=== PATIENT | female | born 1955 | race Caucasian/White ===

== ENCOUNTER 2024-08-14 10:31 | Outpatient (CLI) | payer MEDICARE, MEDICAID, SELFPAY ==
--- NOTE | ~2024-08-14 | CT_ITS ---
EXAMINATION: CT lung screening DATE: 08/14/2024 10:57 INDICATION: HX OF NICOTINE DEPENDENCE TECHNIQUE: Computed tomography (CT) of the chest was performed without intravenous contrast. Addition al 3D reconstructions utilizing coronal maximum intensity projection (MIP) were performed. Automated exposure control and iterative reconstruction technique were employed. The dose-length product was 95 .23 mGy-cm. COMPARISON: None FINDINGS: Mild emphysema. There are <4 mm calcified and noncalcified pulmonary nodules, the former along with c alcified left hilar and mediastinal lymph nodes consistent with old granulomatous disease. There is m osaic attenuation in the lungs with regions of more lucent air trapping consistent with small airway disease. There are also scattered groundglass opacities in the basilar lower lobes, many with linear configuration on the sagittal images consistent with atelectasis. No pulmonary edema or pleural effus ion. Heart size normal. Small amount of atherosclerotic coronary artery calcific location. No pericar dial effusion. Thoracic aorta is normal in caliber. No pathologically enlarged thoracic lymphadenopat hy. Small sliding-type hiatal hernia. Mild thoracic spondylosis. Instrumented anterior spinal fusion at C6-C7. IMPRESSION: 1. . Lung-RADS category 2: Benign appearance or behavior. Continue annual screening with noncontrast low-dose chest CT in 12 months. Reviewed, dictated and finalized at location A. [employer] IMPRESSION: 1. . Lung-RADS category 2: Benign appearance or behavior. Continue annual scree vy with noncontrast low-dose chest CT in 12 months.
--- OUTSIDE RECORDS SUMMARY | 2024-08-14 10:50 | XMS_ITS | Referral Summary ---
Author Organization [facility] Address [address] [place] [address] Care Team Providers Care Steel Die Press Set Up Operator Name Role Phone Earl Mo MD Unavailable [phone] Source Comments [facility],non-owned Affiliates and Associated Physician Practices is amultiple site organization consisting of ambulatory clinics and hospital sitesin [place], [place], [place] and [place]. This disclosure is being madepursuant to the Care Everywhere program and may not contain all information available regarding this patient. Last updated 18.[facility] [employer] Allergies Active Allergy Reactions Criticality Noted Date Comments Cefaclor Other 11/29/2010 Redness and welts Penicillins Other 11/29/2010 Redness and welts Medications * Be aware that medications may not be up to date on this document. Alwaysverify current medications with the patient. Medication Sig Dispensed Refills Start Date End Date Status diclofenac sodium (VOLTAREN) 75 MG tablet Take 1 Tab by mouth 2 times daily. 60 Tab 4 11/29/2010 Active amLODIPine (NORVASC) 5 MG tablet daily. Active citalopram (CELEXA) 40 MG tablet daily. Active furosemide (LASIX) 40 MG tablet 2 times daily. Active tiZANidine (ZANAFLEX) 4 MG tablet 1 Tab every 6 hours. Active traZODone (DESYREL) 150 MG tablet at bedtime. Active simvastatin (ZOCOR) 20 MG tablet at bedtime. Active hydrocodone-acetaminoph en (NORCO) 10-325 MG tablet every 4 hours as needed. Active ALPRAZolam (XANAX) 1 MG tablet 1-3 Tabs daily. Active aspirin 81 MG tablet daily. Acti ve Cimetidine (ACID PROGRAM LEAD PO) daily. Active Active Problems Problem Noted Date Diagnosed Date Degeneration of lumbar or lumbosacral interverte bral disc 12/11/2010 Spinal stenosis, lumbar mario on, with neurogenic claudication 12/11/2010 Social History Tobacco Use Types Packs/Day Years Used Date Smoking Tobacco: Some Days Cigarettes Smokeless Tobacco: Never Alcohol Use Standard Drinks/Week Comments No 0 (1 standard drink = 0.6 oz pur e alcohol) Sex and Gender Information Value Date Recorded Sex Assigned at Not on file Gender Identity Not on file Sexual Orientation Not on file Last Filed Vital Signs Vital Sign Reading Time Taken Comments Blood Pressure - - Pulse - - Temperature - - Respiratory Rate - - Oxygen Saturation - - Inhaled Oxygen Concentration - - Weight 86.2 kg (190 lb) 11/29/2010 3:33 PM CDT Height 162.6 cm (5' 4 ) 11/29/2010 3:33 PM CDT Body Mass Index 32.61 11/29/2010 3:33 PM CDT Plan of Treatment Not on file Care Teams Steel Die Press Set Up Operator Relationship Specialty Start Date End Date Earl Mo MD Internal Medicine 11/29/10
--- OUTSIDE RECORDS SUMMARY | 2024-08-14 10:50 | XMS_ITS | Clinical Summary ---
Author Organization [facility] Address [address] [place] [address] Care Team Providers Care It Support Specialist Name Role Phone Earl Mo MD Unavailable [phone] Source Comments [facility],non-owned Affiliates and Associated Physician Practices is amultiple site organization consisting of ambulatory clinics and hospital sitesin [place], [place]. This disclosure is being madepursuant to the Care Everywhere program and may not contain all information available regarding this patient. Last updated 18.[facility] [employer] Allergies Active Allergy Reactions Criticality Noted Date [...] MG tablet daily. Acti ve Cimetidine (ACID CLOTH LAYER PO) daily. Active Active Problems Problem Noted [...] 11/29/2010 3:33 PM CDT Plan of Treatment Health Maintenance Due Date Last Done Comments BONE DENSITY TESTING 1957 COLOGUARD (AGES 45-75) - COL ON CA SCREENING 1957 COLON MONITORING 1957 COLONOSCOPY - COLON CA SCREENING 1957 CT COLONOGRAPHY - COLON CA SCREENING 1957 Colorectal Cancer Screening 1957 FIT - COLON CA SCREENING 1957 FLEX SIG - COLON CA SCREENING 1957 MAMMOGRAM 1957 HEPATITIS C SCREENING 07/25/1975 DTAP/TDAP/TD VACCINES (1 - Tdap) 1976 PNEUMOCOCCAL VACCINE 50+ (1 of 2 - PCV) 1976 ZOSTER VACCINE (1 of 2) 2007 COVID-19 VACCINE ( - 2023-2 5 season) 2024 INFLUENZA VACCINE (#1) 2024 DEPRESSION SCREENING 07/01/2024 Respiratory Syncytial Virus (RSV) Vaccine Pt: or over 60 yrs (1 - 1-dose 75+ series) 2032 HEPATITIS B VACCINE Aged Out No longe r eligible based on patient's age to complete this topic HIB VACCINE Aged Out No longer eligi ble based on patient's age to complete this topic HPV VACCINE Aged Out No longer eligi ble based on patient's age to complete this topic MENINGOCOCCAL (Group B) VACCINE Aged Out No longer eligible based on patient's age to complete this topic MENINGOCOCCAL VACCINE Aged Out No susana vale eligible based on patient's age to complete this topic Care Teams It Support Specialist Relationship Specialty Start Date End Date Earl Mo MD Internal Medicine 11/29/10
--- OUTSIDE RECORDS SUMMARY | 2024-08-14 10:50 | XMS_ITS | Patient Health Summary ---
Author Organization [facility] Address [address] [place] [address] Care Team Providers Care Tag Maker Name Role Phone Earl Mo MD Unavailable [phone] Note from [facility],non-owned Affiliates and Associated Physician Practices is amultiple site organization consisting of ambulatory clinics and hospital sitesin [place], [place], [place] and [place]. This disclosure is being madepursuant to the Care Everywhere program and may not contain all information available regarding this patient. Last updated 18.[facility] Allergies * Cefaclor(Other) * Penicillins(Other) Medications * Be aware that medications may not be up to date on this document. Alwaysverify current medications with the patient. * diclofenac sodium (VOLTAREN) 75 MG tablet(Started 11/29/2010) Take 1 Tab by mouth 2 times daily. 4 refills left * amLODIPine (NORVASC) 5 MG tablet daily. * citalopram (CELEXA) 40 MG tablet daily. * furosemide (LASIX) 40 MG tablet 2 times daily. * tiZANidine (ZANAFLEX) 4 MG tablet 1 Tab every 6 hours. * traZODone (DESYREL) 150 MG tablet at bedtime. * simvastatin (ZOCOR) 20 MG tablet at bedtime. * hydrocodone-acetaminophen (NORCO) 10-325 MG tablet every 4 hours as needed. * ALPRAZolam (XANAX) 1 MG tablet 1-3 Tabs daily. * aspirin 81 MG tablet daily. * Cimetidine (ACID RAVELER PO) daily. Active Problems Problem Noted Date Diagnosed Date [...] Mass Index 32.61 11/29/2010 3:33 PM CDT Care Teams Tag Maker Relationship Specialty Start Date End Date Earl Mo MD Internal Medicine 11/29/10
--- OUTSIDE RECORDS SUMMARY | 2024-08-14 10:50 | XMS_ITS | Continuity of Care Document ---
Author Organization [facility] Address [address] [place] [address] Phone Care Team Providers Care Boarder Steam Name Role Phone [facility] Unavailable Unavail able Magdy Mott Unavailable Unavailable Procedures Procedure Date Progressive Lens, Polycarb Tint Plastic, Non-[place] Tax - [facility] Frames Purchases Progressive Lens, Polycarb Balance Lens Anti-reflective Coating Eye Exam, New Patient Refraction Advance Directives Directive Yes / No Effective Date File Name No Information Encounters Encounter Description Practice Location Reason(s) For Visit Diagnoses Date Provider Providers Copied on Encounter [facility], [address] [place] [address] [address], [place], [place], [id number], [place] tel:[phone] [facility] No Information [address] [facility]. [address], [address], [place], [place], [id number], [place]. tel:[phone] Referring Provider: José Miguel joseph, [address] [place] [address] [address], [place], [address]. tel:[phone] sulting Provider: Magdy Mott, [address] [place] [address], [place], [address]. tel:[phone] [facility], [address] [place] [address] [address], [place], [place], [id number], [place] tel:[phone] [facility] No Information 9 [facility]. [address], [address], [place], [place], [id number], [place]. tel:[phone] Referring Provider: José Miguel joseph, [address], [place], [address]. tel:[phone] [facility], [address], [place], [place], [id number], [place] tel:[phone] [facility] No Information [address] Carol Valdez. [address], [place], [address], [place]. tel:[phone] Family History Family Member Type Diagnosis Age At Onset No Information Payers Payer name Insurance type Covered alliance party ID Authoriza tion(s) No Information Social History Type Description Quantity Date Captured Comments Sex Female Smoking Status No Information Chief Complaint And Reason For Visit No Information Reason For Referral Reason For Referral No Information History Of Present Illness Encounter Date Complaint History Of Prese nt Illness No Information Functional Status Date Functional Assessmen t No Information Instructions Date Instruction Additional Infor mation No Information Assessments Type Assessment Date No Information Patient Care Teams Name Effective Dates (start - stop) Status Members No Information
--- OUTSIDE RECORDS SUMMARY | 2024-08-14 10:50 | XMS_ITS | Data Portability ---
Author Organization [place] - [facility] imedo, Main Office Address [address] [place] [address] Care Team Providers Care Benefits Director Name Role Phone ADELSO MO Primary Care Provider ADELSO MO Referring Provider Assessment Encounter Date Assessment Date Assessment LastModified by Organization Details LastModified Time 11/08/2023 11/08/2023 The patient has moderately severe primary osteoarthritis both knees right worse than left. The left knee feels good after Synvisc-One injections 2 months ago the right knee continues to bother her. She thinks cortisone works better in this knee she would like to repeat that today therefore under sterile conditions I injected the patient's right knee joint in the office with 4 cc 0.5% bupivacaine and 20 mg of Kenalog. Patient tolerated the procedure well. I will see her back as needed we can do this again in 3 months if necessary she voiced understanding agrees above plan she will call for any further problems difficulties or questions. [email or web address] Not available 11/08/2023 14:07:35 Plan of Treatment Reminders Order Date Submit Date Provider Last Modified By Organization Details Last Modified Time Details Appointments None recorded. Lab lipid panel, serum 2024 025 [facility] Outpatient Lab, [address] [place], [address], 17:32:27 CMP, serum or plasma 2024 025 [email or web address] [facility] Outpatient Lab, [address] [place], [address], 17:32:27 CBC w/ auto diff 2024 025 [facility] Lab, [address] [place], [address], 5 10:47:21 HbA1c (hemoglobin A1c), blood [id number] Outpatient Lab, [address] [place], [address], 5 17:32:27 lipid panel, serum 2023 024 [facility] Out[facility] Lab, [address] [place], [address], 4 14:51:15 CMP, serum or plasma 2023 024 [facility] Out[facility] Lab, [address] [place], [address], 4 14:51:19 TSH, serum or plasma 2023 024 [facility] Out[facility] Lab, [address] [place], [address], 4 15:23:57 T4, free, serum 2023 024 [facility] Out[facility] Lab, [address] [place], [address], 4 15:23:26 magnesium, serum or plasma 2023 024 [facility] Out[facility] Lab, [address] [place], [address], 4 14:51:22 vitamin B12, serum 2023 024 [facility] Out[facility] Lab, [address] [place], [address], 4 15:39:00 HbA1c (hemoglobin A1c), blood [email or web address] [place] [address] Outpatient Lab, [address] [place], [address], 4 15:19:00 microalbumi n, urine 2023 024 [facility] Out[facility] Lab, [address] [place], [address], 4 15:38:45 CBC w/ auto diff 2023 024 [facility] Out[facility] Lab, [address] [place], [address], 4 14:15:57 Referral None recorded. Procedures injection/a spiration joint/bursa (PROC) 2023 024 [email or web address] In-Office Order, Internal Use Only DO Not Attach Compendium DO Not Attach Compendium, Do Not Delete/merge, [id number] 4 11:05:24 Surgeries None recorded. Imaging None recorded. Medication Orders bupivacaine HCl 0.5 % (5 mg/mL) injection solution 2023 024 [email or web address] [facility] #[id number], [address] , [place], [place], [id number], 5 14:39:57 Kenalog 10 mg/mL suspension for injection 2023 024 [id number], [address] , [place], [place], [id number], 5 14:40:14 Patient TargetsNo targets recorded. Patient Instructions Encounter Date Encounter Id Patient Instructions Last Modified By Organization Details Last Modified Time 11/04/2023 [id number] Follow-up hypertension, hyperlipidemia, asthma and chronic pain syndrome. Instructed get back on her Dulera two puffs twice daily because the increase in wheezing and cough. Get a chest x-ray. Plan is reduce the hydrocodone to 3 times a day for a week then twice daily for week and then once daily for week and then discontinue. Will continue on current Rx otherwise. No need for any additional blood work will start on some anti-inflammatory agents when she gets down to one pill per day. Will continue on current or Rx otherwise and follow-up in four months Chest x-ray for persistent cough and wheezing Next Appointment: 4 Months Approximate Date: 03/03/2024 Portions of the record may have been created with voice recognition software. Occasional wrong-word or s ound-a-like substitutions may have occurred due to the inherent limitations of voice recognition software. Read the chart carefully and recognize, using context, where substitutions have occurred. [email or web address] Not available 11/04/2023 11:38:25 03/16/2024 [id number] dementia rating scale-2* [email or web address] Not available 03/16/2024 15:25:56 alcohol misuse* Not available 03/16/2024 15:25:55 depression screening* [email or web address] Not available 03/16/2024 15:25:55 Timed Up and Go test (TUG)* [email or web address] Not available 03/16/2024 15:25:56 multi-dimensiona health assessment questionnaire* [email or web address] Not available 03/16/2024 15:25:56 Personalized Hea lt Plan and Screening Recommendations Advance Directives - Do you have one? No Advance Directives - Do we have your advance directive on file in your health record? Primary Prevention/Interven tion (prevents or decreases the chance of common diseases from occurring) Smoking Risk: Smoker Alcohol Misuse Screening: Negative Weight: Appropriate Overwei ght continue your current weight loss efforts try to lose 5% of your body weight try to lose 10% of your body weight Physical activity: Need more exercise/physical activity Nutrition: Good Average Fall Risk (screened today): Low Intermediate Refer to attached handout Preventing Falls: After your Visit Recommend regular use of cane or walker Vaccines Pneumococcal: Ordered Recommended today Recommended today, but you have declined No further needed Influenza: Your next one in the fall of this year Chronic Disease Risks Stroke: Low Risk Intermediate Risk I have no recommendations Act radha diagnosis, Continue current treatment plan Heart Attack: Low risk Intermediate Risk I have no recommendations Act radha diagnosis, Continue current treatment plan Clogging of the Arteries: Low risk Intermediate Risk I have no recommendations Act radha diagnosis, Continue current treatment plan Diabetes: Low Risk Intermediate Risk Active diagnosis, Continue current treatment plan Secondary Prevention/Interven tion (detects treatable diseases before they may cause symptoms, disability, or ) Breast Cancer Screening with mammogram: Your next mammogram: Ordered Recommended today Cervical/Uterine/Ov schuyler Cancer Screening: No screening necessary Osteoporosis Screening: Your next DEXA in: Ordered Recomme nded today Date Screening Last Performed: Colon Cancer Screening: Colonoscopy In: Ordered Recomme nded Date Screening Last Performed: Eye Disease Screening: Dementia Risk: Low I have no recommendations Depression Screening: Negative [email or web address] Not available 03/16/2024 15:19:15 Medicare wellnes s evaluation risk assessment stable. Follow-up hypertension, hyperlipidemia, type 2 diabetes, GERD and asthma. Clinically stable will check blood work consisting of CBC, CMP, lipid, thyroid, hemoglobin A1c, microalbumin, B12, magnesium level and will need further evaluation with bone density scan colonoscopy. Will continue on current Rx follow-up in fou months. Additional Orders - Directives - Recommendations 1. DEXA Scan 2. Colonoscopy Next Appointment: 4 Months Approximate Date: 07/14/2024 Portions of the record may have been created with voice recognition software. Occasional wrong-word or s ound-a-like substitutions may have occurred due to the inherent limitations of voice recognition software. Read the chart carefully and recognize, using context, where substitutions have occurred. Not available 03/16/2024 15:25:36 05/14/2024 [id number] Laceration of ri ght ear clinically stable. Instructed patient to come back on Saturday05/18/2024 the has sutures removed. Instructed to stay on the clindamycin during that interval time. And let us know if there is any additional bleeding or drainage noted. Keep Appointment: Sat 01:40 PM [place] [email or web address] Not available 05/14/2024 10:35:29 07/20/2024 [id number] Follow-up essent ial hypertension, hyperlipidemia, type 2 diabetes and chronic pain syndrome. Plan to check blood work consisting of CBC, CMP, lipid and hemoglobin A1c level. Continue on current Rx. Does need a low-dose CT scan of the chest for follow-up for chronic smoking. Continue on current medications and follow-up in four months Additional Orders - Directives - Recommendations 1. Low-dose CT scan of the chest one year follow-up Follow Up: 4 Months Approximate Date: 11/17/2024 Portions of the record may have been created with voice recognition software. Occasional wrong-word or s ound-a-like substitutions may have occurred due to the inherent limitations of voice recognition software. Read the chart carefully and recognize, using context, where substitutions have occurred. Created: Adelso Mo M.D. 07.20.2024 01:48 PM [email or web address] Not available 07/20/2024 14:48:55 Reason for Referral None Reported. Results Created Date Observation Date Name Description Value Unit Range Abnormal Flag Note LastModifiedBy Organization Detail LastModifiedTime 02/13/2002/13/2024 COVID -19, INFLU ALEXIS A+B, PCR sars-cov-2 RNA(covid19) ,RT-PCR POSITI VE abnormal This test has been autho rized by the FDA under an Emerg ency Use Autho rizat ion (EUA) for use by autho rized labor atori es. Negat radha resul ts do not precl ude SARS- CoV-2 and shoul d not be used as the sole basis for treat ment or other patie nt manag ement decis ions. Test resul ts shoul d be corre lated with the clini marcus histo ry, epide miolo gical data, and other data avail able to the clini krystal evalu ating the patie nt. Byron allen w the Fact Sheet s for healt h care provi ders and patie nts at the [facility] toña: https ://ww w.fda .gov/ media /1363 12/do wnloa d https ://ww w.fda .gov/ media /1363 13/do wnloa d Metho dolog y: Real- Time RT-PC R Not Available [facility] (Lab) [address] [place], [address], 02/13/2024 12:57:06 02/13/20 24 02/13/2024 COVID -19, INFLU ALEXIS A+B, PCR influenza A RNA, RT-PCR NEGATI VE Not Available [facility] (Lab) [address] [place], [address], 02/13/2024 12:57:06 02/13/20 24 02/13/2024 COVID -19, INFLU ALEXIS A+B, PCR influenza B RNA, RT-PCR NEGATI VE abnormal Not Available [facility] (Lab[facility] [address] [facility] [place], [address], 02/13/2024 12:57:06 03/18/20 24 03/18/2024 CBC/C OMPLE TE BLD COUNT W/DIF F white blood cells 6.8 x10'3 /uL 4.2-[address] [facility] (Lab) [address] [place], [address], 03/18/2024 14:15:57 03/18/20 24 03/18/2024 CBC/C OMPLE TE BLD COUNT W/DIF F red blood cells 4.18 x10'6 /uL 3.80-[address] [facility] (Lab) [address] [place], [address], 03/18/2024 14:15:57 03/18/20 24 03/18/2024 CBC/C OMPLE TE BLD COUNT W/DIF F hemoglobin 13.2 g/dL 12.0-[address] [facility] (Lab) [address] [place], [address], 03/18/2024 14:15:57 03/18/20 24 03/18/2024 CBC/C OMPLE TE BLD COUNT W/DIF F hematocrit 40.3 % 35.7-[address] [facility] (Lab) [address] [place], [address], 03/18/2024 14:15:57 03/18/20 24 03/18/2024 CBC/C OMPLE TE BLD COUNT W/DIF F mean red cell volume 96.4 fL 82.0-[address] [facility] (Lab) [address] [place], [address], 03/18/2024 14:15:57 03/18/20 24 03/18/2024 CBC/C OMPLE TE BLD COUNT W/DIF F mean red cell hemoglobin 31.6 pg 27.0-[address] [facility] (Lab) [address] [place], [address], 03/18/2024 14:15:57 03/18/20 24 03/18/2024 CBC/C OMPLE TE BLD COUNT W/DIF F mean RBC HGB concentratio n 32.8 g/dL 31.0-[address] [facility] (Lab) [address] [place], [address], 03/18/2024 14:15:57 03/18/20 24 03/18/2024 CBC/C OMPLE TE BLD COUNT W/DIF F red cell distribution width 13.5 % 11.8-[address] [facility] (Lab) [address] [place], [address], 03/18/2024 14:15:57 03/18/20 24 03/18/2024 CBC/C OMPLE TE BLD COUNT W/DIF F platelets 221 x10'3 /uL 150-[address] [facility] (Lab) [address] [place], [address], 03/18/2024 14:15:57 03/18/20 24 03/18/2024 CBC/C OMPLE TE BLD COUNT W/DIF F mean platelet volume 9.5 fL 9.0-[address] [facility] (Lab) [address] [place], [address], 03/18/2024 14:15:57 03/18/20 24 03/18/2024 CBC/C OMPLE TE BLD COUNT W/DIF F neutrophils 73.0 % 39.0-7 2.0 high Not Available [facility] (Lab) [address] [place], [address], 03/18/2024 14:15:57 03/18/20 24 03/18/2024 CBC/C OMPLE TE BLD COUNT W/DIF F lymphocytes 18.8 % 16.0-4 7.0 Not Available [facility] (Lab) [address] [place], [address], 03/18/2024 14:15:57 03/18/20 24 03/18/2024 CBC/C OMPLE TE BLD COUNT W/DIF F monocytes 6.9 % 5.0-[address] [facility] (Lab) [address] [place], [address], 03/18/2024 14:15:57 03/18/20 24 03/18/2024 CBC/C OMPLE TE BLD COUNT W/DIF F eosinophils 0.6 % 1.0-7. [address] [facility] (Lab) [address] [place], [address], 03/18/2024 14:15:57 03/18/20 24 03/18/2024 CBC/C OMPLE TE BLD COUNT W/DIF F basophils 0.4 % 0.0-2. [address] [facility] (Lab) [address] [place], [address], 03/18/2024 14:15:57 03/18/20 24 03/18/2024 CBC/C OMPLE TE BLD COUNT W/DIF F immature granulocytes 0.3 % 0.00-[address] [facility] (Lab) [address] [place], [address], 03/18/2024 14:15:57 03/18/20 24 03/18/2024 CBC/C OMPLE TE BLD COUNT W/DIF F neutrophils, absolute count 4.96 x10'3 /uL 1.5-8. [address] [facility] (Lab) [address] [place], [address], 03/18/2024 14:15:57 03/18/20 24 03/18/2024 CBC/C OMPLE TE BLD COUNT W/DIF F lymphocytes, absolute count 1.28 x10'3 /uL 1.07-[address] [facility] (Lab) [address] [place], [address], 03/18/2024 14:15:57 03/18/20 24 03/18/2024 CBC/C OMPLE TE BLD COUNT W/DIF F monocytes, absolute count 0.47 x10'3 /uL 0.29-[address] [facility] (Lab) [address] [place], [address], 03/18/2024 14:15:57 03/18/20 24 03/18/2024 CBC/C OMPLE TE BLD COUNT W/DIF F eosinophils, absolute count 0.04 x10'3 /uL 0.02-[address] [facility] (Lab) [address] [place], [address], 03/18/2024 14:15:57 03/18/20 24 03/18/2024 CBC/C OMPLE TE BLD COUNT W/DIF F basophils, absolute count 0.03 x10'3 /uL 0.01-[address] [facility] (Lab) [address] [place], [address], 03/18/2024 14:15:57 03/18/20 24 03/18/2024 CBC/C OMPLE TE BLD COUNT W/DIF F immature granulocytes ,absolute 0.02 x10'3 /uL 0.00-[address] [facility] (Lab) [address] [place], [address], 03/18/2024 14:15:57 03/18/20 24 03/18/2024 CBC/C OMPLE TE BLD COUNT W/DIF F nucleated red blood cells 0.0 % -0 Not Available [facility] (Lab) [address] [place], [address], 03/18/2024 14:15:57 03/18/20 24 03/18/2024 CBC/C OMPLE TE BLD COUNT W/DIF F NRBC# 0.00 x10'3 /uL Not Available [facility] (Lab) [address] [place], [address], 03/18/2024 14:15:57 03/18/20 24 03/18/2024 LIPID PANEL cholesterol 142 mg/dL 140-19 9 NIH CAITLYN NSUS RECOM MENDA TION FOR LAWRENCE STERO L: ADULT CHILD LOW RISK: <200 <170 BORDE RLINE : <200- 239 ----- HIGH RISK: >240 >[address] [facility] (Lab) [address] [place], [address], 03/18/2024 14:51:15 03/18/20 24 03/18/2024 LIPID PANEL triglyceride s 103 mg/dL 0-150 NIH CAITLYN NSUS REPOR T RECOM MENDA TION FOR TRIGL YCERI LONNIE: ADULT CHILD LOW RISK: <150 ----- BODER LINE: 150-1 99 ----- HIGH RISK: >200 ----- Not Available [facility] (Lab) [address] [place], [address], 03/18/2024 14:51:15 03/18/2003/18/2024 LIPID PANEL HDL cholesterol 77 mg/dL 40- Not Available [facility] (Lab) [address] [place], [address], 03/18/2024 14:51:15 03/18/20 24 03/18/2024 LIPID PANEL LDL cholesterol, calculated 44 mg/dL 0-130 NIH CAITLYN NSUS REPOR T RECOM MENDA TIONS FOR LDL: ADULT CHILD LOW RISK <130 <110 (OPTI MAL LDL) <100 ----- BORDE RLINE : 130-1 59 ----- HIGH RISK: >160 >130 A TRIGL YCERI DE RESUL T >400 INVAL IDATE S THE CALCU LATIO N FOR LDL FRACT IONAT ION - THE LDL RESUL T WILL NOT BE REPOR AMBER. Not Available [facility] (Lab) [address] [place], [address], 03/18/2024 14:51:15 03/18/20 24 03/18/2024 COMPR EHENS RADHA METAB OLIC PANEL sodium 133 mmol/ L 137-14 5 low Not Available [facility] (Lab) [address] [place], [address], 03/18/2024 14:51:19 03/18/20 24 03/18/2024 COMPR EHENS RADHA METAB OLIC PANEL potassium 4.0 mmol/ L 3.5-5. 1 Not Available [facility] (Lab) [address] [place], [address], 03/18/2024 14:51:19 03/18/20 24 03/18/2024 COMPR EHENS RADHA METAB OLIC PANEL chloride 100 mmol/ L 98-107 Not Available [facility] (Lab) [address] [place], [address], 03/18/2024 14:51:19 03/18/20 24 03/18/2024 COMPR EHENS RADHA METAB OLIC PANEL carbon dioxide 30 mmol/ L 22-30 Not Available [facility] (Lab) [address] [place], [address], 03/18/2024 14:51:19 03/18/20 24 03/18/2024 COMPR EHENS RADHA METAB OLIC PANEL anion gap 7.0 mmol/ L 14-22 low Not Available [facility] (Lab) [address] [place], [address], 03/18/2024 14:51:19 03/18/20 24 03/18/2024 COMPR EHENS RADHA METAB OLIC PANEL glucose 86 mg/dL 70-[address] [facility] (Lab) [address] [place], [address], 03/18/2024 14:51:19 03/18/20 24 03/18/2024 COMPR EHENS RADHA METAB OLIC PANEL BUN 11 mg/dL 8-[address] [facility] (Lab) [address] [place], [address], 03/18/2024 14:51:19 03/18/20 24 03/18/2024 COMPR EHENS RADHA METAB OLIC PANEL creatinine 0.66 mg/dL 0.66-[address] [facility] (Lab) [address] [place], [address], 03/18/2024 14:51:19 03/18/20 24 03/18/2024 COMPR EHENS RADHA METAB OLIC PANEL GFR >60 Refer ence Range : [place] ge GFR Healt hy Adult : >60 mL/mi n/1.7 3 m2 Chron ic Kidne y Disea se: 15-60 mL/mi n/1.7 3 m2 Kidne y Failu re: <15/m L/min /1.73 m2 www.n iddk. nih.g ov The MDRD study equat ion has not been valid ated in child ninfa <18 years of age; pregn ant women ; the elder ly >85 years of age; or in some racia l or ethni c subgr oups, such as Hispa nics. Outsi de the valid ated larry eters , estim ated GFR is less accur ate, requi ring clini marcus judgm ent on a case- by-ca se basis . Clini marcus inter preta tion for other races and ages must be made by the clini krystal. The MDRD study equat ion has not been valid ated for the evalu ation of serum creat inine relat ed to nutri caterina l statu s or medic ation usage . For perso ns <18 years of age, a pedia tric GFR calcu lator is avail able on the [facility] websi te: https ://mustapha magana.o daniel/pr ofess ional s/kdo qi/gf r_cal culat or Not Available [facility] (Lab) [address] [place], [address], 03/18/2024 14:51:19 03/18/20 24 03/18/2024 COMPR EHENS RADHA METAB OLIC PANEL alkaline phosphatase 129 U/L 38-126 high Not Available [facility] (Lab) [address] [place], [address], 03/18/2024 14:51:19 03/18/20 24 03/18/2024 COMPR EHENS RADHA METAB OLIC PANEL alanine aminotransfe rase 22 U/L 0-35 Not Available [facility] (Lab) [address] [place], [address], 03/18/2024 14:51:19 03/18/20 24 03/18/2024 COMPR EHENS RADHA METAB OLIC PANEL aspartate aminotransfe rase 26 U/L 15-37 Not Available [facility] (Lab) [address] [place], [address], 03/18/2024 14:51:19 03/18/20 24 03/18/2024 COMPR EHENS RADHA METAB OLIC PANEL bilirubin, total 0.40 mg/dL 0.20-[address] [facility] (Lab) [address] [place], [address], 03/18/2024 14:51:19 03/18/20 24 03/18/2024 COMPR EHENS RADHA METAB OLIC PANEL calcium 9.2 mg/dL 8.4-[address] [facility] (Lab) [address] [place], [address], 03/18/2024 14:51:19 03/18/20 24 03/18/2024 COMPR EHENS RADHA METAB OLIC PANEL total protein 6.4 g/dL 6.3-8. [address] [facility] (Lab) [address] [place], [address], 03/18/2024 14:51:19 03/18/20 24 03/18/2024 COMPR EHENS RADHA METAB OLIC PANEL albumin 4.0 g/dL 3.0-4. [address] [facility] (Lab) [address] [place], [address], 03/18/2024 14:51:19 03/18/20 24 03/18/2024 COMPR EHENS RADHA METAB OLIC PANEL globulin 2.4 g/dL 2.6-4. [address] [facility] (Lab) [address] [place], [address], 03/18/2024 14:51:19 03/18/20 24 03/18/2024 COMPR EHENS RADHA METAB OLIC PANEL A/G ratio 1.7 ratio 1.0-2. [address] [facility] (Lab) [address] [place], [address], 03/18/2024 14:51:19 03/18/20 24 03/18/2024 MAGNE SIUM magnesium 2.0 mg/dL 1.6-2. [address] [facility] (Lab) [address] [place], [address], 03/18/2024 14:51:22 03/18/20 24 03/18/2024 T4 FREE free T4 1.02 NG/dL 0.78-[address] [facility] (Lab) [address] [place], [address], 03/18/2024 15:23:26 03/18/20 24 03/18/2024 TSH thyroid-stim ulating hormone 0.618 uIU/m L 0.465- 4.[address] [facility] (Lab) [address] [place], [address], 03/18/2024 15:23:57 03/18/20 24 03/18/2024 MICRO ALBUM IN RANDO M URINE microalbumin , urine <6.0 mg/L 0.0-[address] [facility] (Lab) [address] [place], [address], 03/18/2024 15:38:45 03/18/20 24 03/18/2024 VITAM IN B12 (SHAWN FRANKY ) vb12 537 pg/mL 239-[address] [facility] (Lab) [address] [place], [address], 03/18/2024 15:39:00 03/18/20 24 03/20/2024 HA1C, SEND- OUT TO [facility] RP hemoglobin A1C 5.3 % 4.8-5. 6 . . Predi abete s: 5.7 - 6.4 Diabe toña: >6.4 Glyce hilary contr ol for adult s with diabe toña: <7.0 Perfo rmed at: - [facility], [place] [address] [facility], [place] [id number] Lab Direc tor: Roddy rosenbaum PhD, Phone : [phone] [facility] (Lab) [address] [place], [address], 03/20/2024 08:22:31 03/27/20 24 03/27/2024 COLOG UARD cologuard result reportable NEGATI VE negati ve normal NEGAT RADHA TEST RESUL T. A negat radha Colog uard resul t indic ates a low likel ihood that a color ectal cance r (CRC) or advan erick adeno ma (ana omato us polyp s with more advan erick pre-m align ant featu res) is prese nt. The chanc e that a perso n with a negat radha Colog uard test has a color ectal cance r is less than 1 in 1500 (nega tive predi ctive value >99.9 %) or has an advan erick adeno ma is less than 5.3% (nega tive predi ctive value 94.7% ). These data are based on a prosp ectiv e cross -sect ional study of 10,00 0 indiv idual s at [place] risk for color ectal cance r who were scree nawaf with both Colog uard and colon oscop y. (Finne matteo T. et al, N Engl J Med 2014; 370(1 4):12 86-12 97) The isai l value (refe rence range ) for this assay is negat radha. COLOG UARD RE-SC REENI NG RECOM MENDA TION: Perio dic color ectal cance r scree vy is an impor tant part of preve ntive healt hcare for asymp tomat ic indiv idual s at [place] risk for color ectal cance r. Follo wing a negat radha Colog uard resul t, the Ameri can Cance r Socie ty and U.S. Multi -Soci ety Task Force scree vy guide lines recom mend a Colog uard re-sc reeni ng inter elaine of 3 years . Refer ences : Ameri can Cance r Socie ty Guide line for Color ectal Cance r Scree vy: https ://mustapha w.can cer.o rg/ca ncer/ colon -rect al-ca ncer/ detec tion- diagn osis- stagi ng/ac s-rec ommen datio ns.ht ml.; Mane HAIRSTON, Silvia BURR, Caroline GARCIA, Color ectal Cance r Scree vy: Recom menda tions for Physi cians and Patie nts from the U.S. Multi -Soci ety Task Force on Color ectal Cance r Scree vy , Linda Moore Gastr tamminte rolog y 2017; 112:1 016-1 030. TEST DESCR IPTIO N: [place] site algor ithmi c tara sis of stool DNA-b iogumaro kers with hemog lobin immun oassa y. Quant itati ve value s of indiv idual bioma rkers are not repor table and are not assoc iated with indiv idual bioma rker resul t refer ence range s. Colog uard is inten ded for color ectal cance r scree vy of adult s of eithe r sex, 45 years or older , who are at [facility] for color ectal cance r (CRC) . Colog uard has been appro tyree for use by the [place] FDA. The perfo rmanc e of Colog uard was estab lishe d in a cross secti onal study of [facility] adult s aged 50-84 . Colog uard perfo rmanc e in patie nts ages 45 to 49 years was estim ated by sub-g roup tara sis of near- age group s. Colon oscop ies perfo rmed for a posit radha resul t may find as the most clini kalin signi fican t lesio n: color ectal cance r [4.0% ], advan erick adeno ma (incl uding sessi le long amber polyp s great er than or equal to 1cm diame ter) [20%] or non- advan erick adeno ma [31%] ; or no color ectal neopl anh [45%] . These estim ates are deriv ed from a prosp ectiv e cross -sect ional scree vy study of 10,00 0 indiv idual s at [facility] risk for color ectal cance r who were scree nawaf with both Colog uard and colon oscop y. (Og Chavira et al, N Engl J Med 2014; 370(1 4):12 86-12 97.) Colog uard may produ ce a false negat radha or false posit radha resul t (no color ectal cance r or preca ncero us polyp prese nt at colon oscop y follo w up). A negat radha Colog uard test resul t does not guara ntee the absen ce of CRC or advan erick adeno ma (pre- cance r). The curre nt Colog uard scree vy inter elaine is every 3 years . (Amer ican Cance r Socie ty and U.S. Multi -Soci ety Task Force ). Colog uard perfo rmanc e data in a 10,00 0 patie nt pivot al study using colon oscop y as the refer ence metho d can be acces sed at the follo wing locat ion: www.e xactl abs.c om/re sults . Addit ional descr iptio n of the Colog uard test proce ss, warni ngs and preca ution s can be found at www.c ologu angela.c om. Not Available [employer] (Cologuard Orders Only) [address], [place], [address], 04/01/2024 01:50:59 11/04/19 24 11/04/2023 XR, chest , 2 view [facility] [address] [place] [address] Patien t Name: MARCIE BARRY Access ion #: [id number] Sex: F : 1955 6 Dictat ed By: Jamie Camacho Attend ing Physic mynor: NEHA MO CE Orderi Physic mynor: NEHA MO CE Exam Date: 2023 11:33 AM Exam Name: XR CHEST 2V Admitt ing Diagno sis(es ): XR CHEST 2V CLINIC AL HISTOR Y: cough COMPAR LAKSHMI: None TECHNI QUE: Fronta l and latera l view of the chest was obtain ed FINDIN GS: Lines and Tubes: None Lungs: No focal consol idatio n. Pleura : No effusi on. No pneumo thorax . Cardio medias tinal contou rs: Unrema rkable Bones: No acute osseou s abnorm ality. IMPRES PHILLIP: No acute cardio pulmon carter diseas e. Electr onical ly Signed by: Jamie Camacho at 2023 12:43: 33 PM Page [address] (Imaging) [address] [place], [address], 11/04/2023 13:57:48 11/19/19 24 11/19/2023 US, carot id arter y No observ ation record ed. [address] [facility] [address], [place], [address], 11/19/2023 15:33:57 02/27/20 24 02/27/2024 XR, chest , 2 view [facility] [address] [place] [address] Patien t Name: MARCIE BARRY Access ion #: [id number] Sex: F : 1955 7 Dictat ed By: Jamie Camacho Attend ing Physic mynor: NEHA MO CE Orderi ng Physic mynor: NEHA MO CE Exam Date: 2023 11:04 AM Exam Name: XR CHEST 2V Admitt ing Diagno sis(es ): XR CHEST 2V CLINIC AL HISTOR Y: cough COMPAR LAKSHMI: XR CHEST 2V on DOS: 11/04/23 TECHNI QUE: Fronta l and latera l view of the chest was obtain ed FINDIN GS: Lines and Tubes: None Lungs: No focal consol idatio n. Pleura : No effusi on. No pneumo thorax . Cardio medias tinal contou rs: Unrema rkable Bones: No acute osseou s abnorm ality. IMPRES PHILLIP: No acute cardio pulmon carter diseas e. Electr onical ly Signed by: Jamie Camacho at 2023 11:39: 36 AM Page [address] (Imaging) [address] [place], [address], 02/27/2024 12:44:00 04/27/20 24 04/27/2024 DEXA, axial skele ton [facility] [address] [place] [address] Patien t Name: MARCIE BARRY Access ion #: [id number] Sex: F : 1955 7 Dictat ed By: Monica Doran Attend ing Physic mynor: NEHA MO Orderi Physic mynor: NEHA MO Exam Date: 2023 11:26 AM Exam Name: XR DEXA-H IPS PELVIS SPINE Admitt ing Diagno sis(es ): INDICA TION: 68 years old, Female ; osteop orosis . Postme nopaus al DEXA SCAN: BONE DENSIT Y REPORT : AP SPINE (L1-L4 ) : T Score: Normal LEFT HIP TOTAL : T Score: Normal RT HIP TOTAL : T Score: Normal TOTAL BILAT HIP AVG: T Score: Normal 10 YEAR FRACTU RE RISK* Not provid ed. IMPRES PHILLIP: 1. Normal bone minera l densit y of lumbar spine. 2. Normal bone minera l densit y of bilate ral hips. ------ ------ ------ ------ ------ ------ ------ ------ ----- *FRAX versio n 3.08. Fractu re probab ility calcul ated for an untrea amber patien t. Fractu re probab ility may be lower if the patien t has receiv ed treatm ent. T-scor e: compar lakshmi by columba peterson ion (MANSOOR) to a young adult popula bruno leon d for sex and ethnic ity (used for postme nopaus al women and men >50 years) and classi fied by WHO criter ia. Page 1 [facility] [address] [place] [address] Patien t Name: MARCIE BARRY Access ion #: [id number] Sex: F : 1955 7 Dictat ed By: Monica Doran Attend ing Physic mynor: PAN MANUEL ng Physic mynor: NEHA MO Exam Date: 2023 11:26 AM Exam Name: XR DEXA-H IPS PELVIS SPINE Admitt ing Diagno sis(es ): -1.0: normal <-1.0 to >-2.5: osteop enia -2.5: osteop orosis -2.5 plus fragil ity fractu re: severe osteop orosis Z-scor e: compar ed by SD to an age, sex, and ethnic ity popula tion (used for premen opausa l women, men <50 years, and childr en instea d of T-scor e WHO criter ia 4) <-2.0: below expect ed range/ low bone densit y for age, and a cause should be sought Electr onical ly Signed by: Monica Doran at 2023 12:08: 52 PM Page [address] (Imaging) [address] [place], [address], 04/27/2024 13:31:25 Result Notes None recorded. Problems Name Problem SNOMED Code Status Onset Date Resolution Date Notes Provider Name and Address Organization Details Recorded Time Edema of lower extremity 172692901 Active 2016 Not Available [facility] 3 02:33:29 Spinal enthesopa thy 04088415 Active Not Available [facility] 3 02:33:29 Renewal of prescript ion Active 2021 Not Available [facility] 3 02:33:29 Acute bronchiti s 54523316 Active 2022 Not Available [facility] 3 02:33:29 Impacted cerumen of bilateral ears 58549446632 26101 Active 2021 Not Available [facility] 3 02:33:29 Disorder of shoulder 527353153 Active Not Available [facility] 3 02:33:29 Benign essential hypertens ion 3240735 Completed Not Available [facility] 3 02:33:29 Lesion of skin of face 65925319805 6 Active 2021 Not Available [facility] 3 02:33:29 Disorder of trunk 344536274 Active Not Available [facility] 3 02:33:29 Disorder of sacrum 59264170 Active Not Available [facility] 3 02:33:29 Acquired trigger finger 5345329 Active Not Available [facility] 3 02:33:29 Spinal stenosis of lumbar region 60042298 Active Not Available [facility] 3 02:33:29 Insomnia 495369789 Active Not Available [facility] 3 02:33:29 Asthma 357116791 Active 2016 Not Available [facility] 3 02:33:30 Radial styloid tenosynov itis 07180923 Active Not Available [facility] 3 02:33:30 Gastroeso phageal reflux disease 621942032 Active Not Available [facility] 3 02:33:30 Thyroid nodule 760263466 Active Not Available [facility] 3 02:33:30 Wound seroma 570230152 Active Not Available [facility] 3 02:33:30 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 Not Available [facility] 3 02:33:30 Pure hyperchol esterolem ia 440707962 Active Not Available [facility] 3 02:33:30 Chest pain 76017608 Active Not Available [facility] 3 02:33:30 Enthesopa thy of hip region 24999340 Active Not Available [facility] 3 02:33:30 Hyperhidr osis 172174938 Active 2016 Not Available [facility] 3 02:33:30 Lateral epicondyl itis of right humerus 23555442048 9107 Active 2021 Not Available [facility] 3 02:33:30 Vitamin D deficienc y 27547081 Active 2021 Not Available [facility] 3 02:33:31 Depressiv e disorder 93107076 Active Not Available [facility] 3 02:33:31 Chronic pain syndrome 244265028 Active 2016 Not Available [facility] 3 02:33:31 Abnormal renal function 01865229 Active Not Available [facility] 3 02:33:31 Osteoarth ritis 133091920 Active Not Available [facility] 3 02:33:31 Vertigo 191700667 Active Not Available [facility] 3 02:33:31 Bacterial vaginosis 133044633 Completed Not Available [facility] 3 02:33:31 Surgical site infection 088449331 Active Not Available [facility] 3 02:33:31 Type 2 diabetes mellitus 40025657 Active 2016 Not Available [facility] 3 02:33:31 Pain of right knee joint 77719760509 4100 Active 2021 Not Available [facility] 3 02:33:31 Pain of bilateral knee joints 37209798318 4104 Active 2021 Not Available [facility] 3 02:33:32 Cervical radiculop athy 50695071 Active Not Available [facility] 3 02:33:32 Essential hypertens ion 31486652 Active 2021 Not Available [facility] 3 02:33:32 Carotid artery stenosis 64237625 Active Not Available [facility] 3 02:33:32 Essential hypernatr emia 71392254 Completed 202107/05/2021 Not Available [facility] 3 02:33:32 Candidias is of vagina 71745989 Active 2021 Not Available [facility] 3 02:33:32 Hyperglyc emia 36926733 Completed Not Available [facility] 3 02:33:32 Spinal stenosis in cervical region 86784988 Active Not Available [facility] 3 02:33:32 Impaired glucose tolerance 7002725 Completed Not Available [facility] 3 02:33:33 Chronic back pain 043842912 Active 2022 Deepti Baeza CMA null, [place] [facility] 3 11:12:23 Anxiety 56981079 Active 2022 Deepti Baeza CMA null[place] [facility] 3 14:16:21 Pain of right elbow joint 93855481839 817263 Active 2022 Racquel Hitesh [employer]EARCH PROJECT COORDINATOR null, [place] [facility] 3 13:53:42 Osteoarth ritis of right knee joint 47885714397 9100 Active 2022 Racqueljhonatan Proctor [employer]EARCH PROJECT COORDINATOR null, [place] [facility] 3 13:54:07 Pain in right hip joint 60256245351 9102 Active 2022 Racquel Hitesh, [employer]EARCH PROJECT COORDINATOR null, [place] [facility] 3 14:11:27 Bilateral osteoarth ritis of knees 66110969505 9107 Active 2022 CASE Anaya [address], [address], [place], [address] , [place] [facility] 3 14:48:49 Obese class I 34148484281 4107 Active 2022 Adelso Mo MD [address], [address], [place], [address] , [place] [facility] 3 12:33:40 Type 2 diabetes mellitus without complicat ion 823423434 Active 2022 Deepti Baeza CMA null, [place] [facility] 3 12:51:19 Hemorrhoi ds 88684519 Active 2022 Adelso Mo MD [address], [address], [place], [address] , [place] [facility] 3 16:51:20 Bronchiti s 33656195 Active 2022 Deepti Baeza CMA null, [place] [facility] 3 16:24:43 Lumbar radiculop athy 641508200 Active 2022 Polly Brown null, [place] [facility] 3 16:23:04 Neuropath y 339643329 Active 2022 Deepti Baeza CMA null[place] [facility] 3 12:29:10 Acute sinusitis 80147449 Active 2023 Adelso Mo MD [address], [address], [place], [address] , [facility] 4 10:46:29 Cough 22547848 Active 2023 Polly Kevin ruffin, [place] [facility] 4 11:46:17 Rheumatoi d arthritis 28298438 Active 2023 Deepti Baeza CMA null, [place] [facility] 4 12:17:26 Fever 931182100 Active 2023 Deepti Baeza CMA null, [place] [facility] 4 17:44:07 COVID-19 922213500 Active 2023 Adelso Mo MD [address], [facility] [address], [place], [address] , [facility] 4 14:03:47 Senile osteoporo sis 16348643 Active 2023 Polly Kevin augustin, [facility] 4 15:30:45 Laceratio n of right ear region 97981736388 885216 Active 2023 Adelso Mo MD [address], [facility] [address], [place], [address] , [facility] 4 10:35:19 Notes:Some problems listed i n Documents: #[id number], #[id number] could not be added to this patient's chart. Please review these documents and add these problems to the patient's chart manually as needed. Problem Notes None recorded. Procedures Surgical History Date Name Laterality Status Provider Name and Address Organization Details Recorded Time 03/16/20 24 Medicare Wellness CPT Code, subsequent completed Debora Davis RN [facility] 03/16/2024 15:11:46 11/13/19 23 Medicare Wellness CPT Code, subsequent completed ANGÉLICA Clement [facility] 11/12/2022 12:21:29 11/09/19 21 Most Recent Bone Density completed Not Available [facility] 08/29/2022 02:30:55 08/14/19 21 Most Recent Mammogram completed Not Available [facility] 08/29/2022 02:30:56 03/22/20 14 Date of Last Colonoscopy completed Not Available [facility] 08/29/2022 02:30:55 Eye Surgery completed Not Available [facility] 08/29/2022 02:30:59 other completed Not Available [facility] 08/29/2022 02:30:59 Hysterectomy completed Not Available [facility] 08/29/2022 02:30:59 Cataract Surgery completed Not Available [facility] 08/29/2022 02:30:59 Cholecystectomy completed Not Available [facility] 08/29/2022 02:30:59 delivery completed Not Available [facility] 08/29/2022 02:30:59 Orthopedic Procedure completed Not Available [facility] 08/29/2022 02:30:59 Imaging Results Imaging Date Name Status LastModified by Organiz ation Details LastModified Time 11/04/2023 XR, chest, 2 view completed [address] (Imaging) [address] [place], [address], 11/04/2023 13:57:48 11/19/2023 US, carotid artery completed [address] [facility] [address] , [place], [address], 11/19/2023 15:33:57 02/27/2024 XR, chest, 2 view completed [address] (Imaging) [address] [place], [address], 02/27/2024 12:44:00 04/27/2024 DEXA, axial skeleton completed [address] (Imaging) [address] [place], [address], 04/27/2024 13:31:25 Procedure Notes None recorded. Medical Equipment None Reported. Allergies Allergen ID Allergen Name Allergen Category Reaction Reaction Severity Criticality Documentation Date Start Date Code Code System Note Provider Name and Address Organization Details Recorded Time 3363 Product containin g penicilli n and antibioti c (product) medicatio n rash Not available Not available 08/29/2022 24913 05 SNOMED Not Available [facility] 3 02:38:09 3364 Richard-Tab medicatio n nausea Not available Not available 08/29/202267825 9 RxNorm Not Available [facility] 3 02:38:10 3366 Ceclor medicatio n rash Not available Not available 08/29/202256175 5 RxNorm Not Available [facility] 3 02:38:10 3368 oxybutyni n medicatio n other Not available Not available 08/29/2022 83025 RxNorm drymo uth Not Available [facility] 3 02:38:10 3370 Norvasc medicatio n other Not available Not available 08/29/2022 86594 RxNorm edema Not Available [facility] 3 02:38:10 3372 codeine medicatio n nausea Not available Not available 08/29/2022 2670 RxNorm Not Available [facility] 3 02:38:10 3374 Product containin g angiotens in-conver ting enzyme inhibitor (product) medicatio n cough Not available Not available 08/29/2022 29422 009 SNOMED Not Available [facility] 3 02:38:10 Medications Name Sig Start Date Stop Date Status Note LastModified by Organization Details LastModified Time losartan 50 mg tablet TAKE ONE TABLET BY MOUTH DAILY active Not Available Not Available No t Available furosemid e 40 mg tablet TAKE 1 TABLET BY MOUTH TWICE DAILY active Not Available Not Available No t Available metolazon e 2.5 mg tablet TAKE ONE TABLET BY MOUTH DAILY FOR EDEMA active Not Available Not Available No t Available atorvasta tin 40 mg tablet TAKE ONE AND ONE-HALF TABLET BY MOUTH ONCE DAILY. active Not Available Not Available No t Available metformin 500 mg tablet Take 1 tablet twice a day by oral route. 09/26 completed Not Available Not Available Not Available terconazo le 0.4 % vaginal cream active Not Available Not Available Not Available primidone 50 mg tablet TAKE 2 TABLETS BY MOUTH THREE TIMES DAILY active Not Available Not Available No t Available prednison e 10 mg tablet TAKE 1 TABLET BY MOUTH 3 TIMES DAILY FOR 3 DAYS, 1 TAB TWICE X 2 DAYS, THEN 1 TAB ONCE X 1 DAY 07/08 completed Not Available Not Available Not Available gabapenti n 600 mg tablet TAKE 1 TABLET BY MOUTH THREE TIMES DAILY 03/21 completed Not Available Not Available Not Available doxycycli ne hyclate 100 mg capsule TAKE 1 CAPSULE BY MOUTH TWICE DAILY active Not Available Not Available No t Available paroxetin e 10 mg tablet TK 1 T PO QD active Not Available Not Available No t Available clindamyc in HCl 300 mg capsule TAKE ONE CAPSULE BY MOUTH EVERY 6 HOURS FOR 7 DAYS 07/20 completed Not Available Not Available Not Available Anusol-HC 2.5 % rectal cream with applicato r Insert 1 applicat ion 4 times a day by rectal route. active Not Available Not Available No t Available albuterol sulfate 2.5 mg/3 mL (0.083 %) solution for nebulizat ion U 1 ML VIA NEB QID active Not Available Not Available No t Available oxybutyni n chloride ER 10 mg tablet,ex tended release 24 hr Take 1 tablet every day by oral route. active Not Available Not Available No t Available alprazola m 1 mg tablet TAKE 1 TABLET BY MOUTH THREE TIMES DAILY FOR ANXIETY active Not Available Not Available No t Available fluconazo le 150 mg tablet Take 1 tablet as needed by oral route. 07/08 completed Not Available Not Available Not Available benzonata te 200 mg capsule TAKE 1 CAPSULE BY MOUTH THREE TIMES DAILY 07/20 completed Not Available Not Available Not Available hydrocodo ne 5 mg-acetam inophen 325 mg tablet take one tablet four times a day 11/19 completed Not Available Not Available Not Available meloxicam 15 mg tablet TAKE 1 TABLET BY MOUTH EVERY DAY active Not Available Not Available No t Available Nicoderm CQ 21 mg/24 hr daily transderm al patch Apply 1 patch every day by transder mal route. 03/26 completed Not Available Not Available Not Available bupivacai ne HCl 0.5 % (5 mg/mL) injection solution in office 07/20 completed Not Available Not Available Not Available estradiol 0.05 mg/24 hr weekly transderm al patch APPLY ONE PATCH TOPICALL Y ONCE A WEEK 10/07 /2020 completed Not Available Not Available Not Available metolazon e 5 mg tablet Take 1 tablet every day by oral route. 06/03 completed Not Available Not Available Not Available clindamyc in HCl 150 mg capsule Take 1 capsule every 6 hours by oral route. 06/03 completed Not Available Not Available Not Available Accu-Chek Softclix Lancets USE TO TEST BLOOD SUGAR ONCE DAILY DIRECTED active Not Available Not Available No t Available potassium chloride ER 10 mEq tablet,ex tended release Take 2 tablets every day by oral route. 2012 active Not Available Not Available Not Avai lable clopidogr el 75 mg tablet TAKE 1 TABLET BY MOUTH EVERY DAY active Not Available Not Available No t Available estradiol 0.05 mg/24 hr semiweekl y transderm al patch Apply 1 patch twice a week by transder mal route. active Not Available Not Available No t Available sulfameth oxazole 800 mg-trimet hoprim 160 mg tablet TAKE 1 TABLET BY MOUTH EVERY 12 HOURS FOR 7 DAYS 07/08 completed Not Available Not Available Not Available hydrocodo ne 10 mg-acetam inophen 325 mg tablet one every four hours as needed not to exceed 5 per day 03/26 completed Internal note: MARCIE [address] [facility] [address] [place] [address] 8 03/04/2018 ALPRAZOL AM 1MG /30 Medicare [facility] [place] MD [facility] MARCIE [address] [place] [address] 8 8 Hydrocod one-Acet aminophn 10-325 100/20 Medicare [facility] [place] MO MD [address] [facility] [address] 8 02/05/2018 ALPRAZOL AM 1MG 90/30 Medicare [facility] MO MD [address] [place] [address] 8 8 HYDROCOD ONE BIT/ACET BUSCH 10MG-325 MG 100/20 Medicare [facility] [place] MO MD [address] [facility] [address] 8 01/03/2018 ALPRAZOL AM 1MG 90/30 Medicare [facility] MO MD [facility] MARCIE [address] [place] [address] 8 8 HYDROCOD ONE BIT/ACET BUSCH 10MG-325 MG 100/20 Medicare [facility] [place] MO MD [address] [facility] [address] [facility] [address] 8 12/05/2017 ALPRAZOL AM 1MG 90/30 Medicare [facility] MO MD [address] [place] [address] 8 8 HYDROCOD ONE BIT/ACET BUSCH 10MG-325 MG 100/20 Medicare [facility] [place] MO MD [facility] MARCIE [address] [facility] [address] [facility] [address] 8 11/05/2017 ALPRAZOL AM 1MG 90/30 Medicare [facility] MO MD [facility] MARCIE [address] [address] 8 8 Hydrocod one-Acet aminophn 10-325 100/20 Medicare [facility] PANEx ternal note: No new prescrip tons before: 03/14/20 18 Not Available Not Available Not Available minoxidil 2.5 mg tablet TAKE 1/2 TABLET BY MOUTH DAILY active Not Available Not Available No t Available aspirin 81 mg tablet,de layed release Take 1 tablet every day by oral route. 07/08 completed Not Available Not Available Not Available triamcino lone acetonide 0.1 % topical cream active Not Available Not Available Not Available simvastat in 40 mg tablet TAKE 1 TABLET BY MOUTH DAILY 11/17 completed Not Available Not Available Not Available prednison e 10 mg tablets in a dose pack Take 1 tab by mouth, 3 times a day for 3 daysTake 1 tab by mouth 2 times a day for 2 daysTake 1 tab by mouth once a day for 1 day 09/09 completed Not Available Not Available Not Available meloxicam 7.5 mg tablet Take 1 tablet every day by oral route. 12/15 completed Not Available Not Available Not Available oxycodone -acetamin ophen 5 mg-325 mg tablet TAKE 1 TABLET BY MOUTH EVERY 4 HOURS NEEDED FOR PAIN 02/28 completed Not Available Not Available Not Available hydrocort isone 2.5 % topical cream with perineal applicato r APPLY THIN LAYER TOPICALL Y TO THE AFFECTED AREA 2 TO 4 TIMES DAILY active Not Available Not Available No t Available Tessalon Perles 100 mg capsule Take 1 capsule 3 times a day by oral route. 10/21 completed Not Available Not Available Not Available alprazola m 0.5 mg tablet Take 1 tablet 3 times a day by oral route. 08/26 completed Not Available Not Available Not Available Metrogel Vaginal 0.75 % (37.5 mg/5 gram) Insert 1 applicat orful every day by vaginal route at bedtime for 5 days. active Not Available Not Available No t Available potassium chloride ER 20 mEq tablet,ex tended release(p art/cryst ) TAKE 1 TABLET BY MOUTH EVERY DAY 11/12 completed Not Available Not Available Not Available amitripty line 25 mg tablet TAKE 1 TABLET BY MOUTH EVERY DAY AT BEDTIME active Not Available Not Available No t Available primidone 250 mg tablet TAKE 1/2 TABLET BY MOUTH IN THE MORNING AND 1/2 TABLET IN THE AFTERNOO N AND 1 TABLET AT BEDTIME . MAY HOLD AFTERNOO N DOSE IF DROWSY active Not Available Not Available No t Available prednisol one acetate 1 % eye drops,neel pension SHAKE LIQUID AND INSTILL 1 DROP IN EACH EYE TWICE DAILY DIRECTED active Not Available Not Available No t Available ondansetr on 4 mg tablet one tablet four times a day as needed for nausea 11/14 completed Not Available Not Available Not Available Celexa 20 mg tablet Take 1 tablet every day by oral route. 06/03 completed Not Available Not Available Not Available Kenalog 10 mg/mL suspensio n for injection in office 07/20 completed [facility]: [phone] 10-18 Not Available Not Available Not Available Flagyl 500 mg tablet Take 1 tablet every 12 hours by oral route for 7 days. 08/20 completed Not Available Not Available Not Available baclofen 10 mg tablet TAKE 1 TABLET BY MOUTH TWICE DAILY active Not Available Not Available No t Available promethaz ine-pheny lephrine- codeine 6.25 mg-5 mg-10 mg/5 mL oral syrup Take 5 mL every 4 hours by oral route. 06/03 completed Not Available Not Available Not Available hydrocodo ne 7.5 mg-acetam inophen 325 mg tablet take one tablet by mouth 4 times a day 08/27 completed Not Available Not Available Not Available cyanocoba franky (vit B-12) 1,000 mcg/mL injection solution . 04/06 completed Not Available Not Available Not Available trazodone 150 mg tablet TAKE 1 TABLET BY MOUTH EVERY DAY active Not Available Not Available No t Available neomycin- polymyxin -dexameth 3.5 mg/mL-10, 000 unit/mL-0 .1% eye drops PLACE 1 DROP INTO BOTH EYES FOUR TIMES DAILY FOR 1 WEEK active Not Available Not Available No t Available Cipro 500 mg tablet Take 1 tablet twice a day by oral route for 10 days. 06/03 completed Not Available Not Available Not Available Proscar 5 mg tablet Saturday, , 08/06 completed Not Available Not Available Not Available gabapenti n 300 mg capsule Take 1 capsule every day by oral route at bedtime. active Not Available Not Available No t Available omeprazol e 20 mg capsule,d elayed release TAKE 1 CAPSULE BY MOUTH EVERY DAY active Not Available Not Available No t Available Sinemet 25 mg-100 mg tablet Take 2 tablets twice a day by oral route. 2012 active Not Available Not Available Not Avai lable diclofena c sodium 75 mg tablet,de layed release TAKE ONE TABLET BY MOUTH TWICE DAILY 04/09 completed Not Available Not Available Not Available furosemid e 20 mg tablet TAKE 2 TABLETS BY MOUTH TWICE DAILY 12/11 completed Not Available Not Available Not Available Levaquin 500 mg tablet Take 1 tablet every 24 hours by oral route. 07/15 completed Not Available Not Available Not Available methylpre dnisolone 4 mg tablets in a dose pack USE UTD active Not Available Not Available Not Available albuterol sulfate HFA 90 mcg/actua tion aerosol inhaler INHALE 2 PUFFS BY MOUTH FOUR TIMES DAILY active Not Available Not Available No t Available clobetaso l 0.05 % scalp solution 07/20 completed Not Available Not Available Not Available ondansetr on 4 mg disintegr ating tablet DISSOLVE 1 TABLET ON THE TONGUE FOUR TIMES DAILY NEEDED FOR NAUSEA 09/09 completed Not Available Not Available Not Available estradiol 0.1 mg/24 hr weekly transderm al patch Apply 1 patch every week by transder mal route. 08/06 completed Not Available Not Available Not Available Robinul 1 mg tablet Take 1 tablet twice a day by oral route. 03/26 completed Not Available Not Available Not Available gentamici n 0.1 % topical ointment APPLY SMALL AMOUNT TO EYELID THREE TIMES DAILY FOR 10 DAYS AFTER SURGERY. 07/20 completed Not Available Not Available Not Available Flexeril 10 mg tablet Take 1 tablet 3 times a day by oral route. 08/06 completed Not Available Not Available Not Available neomycin- polymyxin -hydrocor t 3.5 mg-10,000 unit/mL-1 % ear drops,neel p active Not Available Not Available Not Available Mucinex 600 mg tablet, extended release Take 1 tablet every 12 hours by oral route. 10/21 completed Not Available Not Available Not Available Restasis 0.05 % eye drops in a dropperet te INSTILL 1 DROP IN BOTH EYES TWICE DAILY active Not Available Not Available No t Available estradiol 0.0375 mg/24 hr weekly transderm al patch APPLY ONE PATCH EXTERNAL LY WEEKLY 07/15 completed Not Available Not Available Not Available rosuvasta tin 40 mg tablet TAKE 1 TABLET BY MOUTH EVERY DAY 2023 active Not Available Not Available Not Avai lable duloxetin e 20 mg capsule,d elayed release TAKE 1 CAPSULE BY MOUTH EVERY DAY 05/20 completed Not Available Not Available Not Available duloxetin e 60 mg capsule,d elayed release one capsule daily 04/10 completed Not Available Not Available Not Available Cymbalta 30 mg capsule,d elayed release take once a day along with the cymbalta 60mg 03/17 completed Not Available Not Available Not Available Zanaflex 4 mg capsule Take 1 capsule 4 times a day by oral route. 2012 active Not Available Not Available Not Avai lable metronida zole 1 % topical gel 07/20 completed Not Available Not Available Not Available Euflexxa 10 mg/mL (mw 2.4-3.6 million) intra-art icular syringe Injectio ns given in the office by the doctor 03/15 completed [facility]: [id number] Not Available Not Available Not Available Aspir-81 11/08 completed Not Available Not Available Not Available prednison e prn 06/03 completed Not Available Not Available Not Available Acidophil us 06/03 completed Not Available Not Available Not Available Hydrocodo ne 12/27 completed Not Available Not Available Not Available Restasis 11/08 completed Not Available Not Available Not Available lidocaine (PF) 10 mg/mL (1 %) injection solution In office injectio n administ ered by the provider 11/08 completed ND: [id number] 6-17 Not Available Not Available Not Available Synvisc-O ne 48 mg/6 mL intra-art icular syringe Take 6 mL by intraart icular route as directed . 09/09 completed Not Available Not Available Not Available Dulera 200 mcg-5 mcg/actua tion HFA aerosol inhaler INHALE 2 PUFFS BY MOUTH TWICE DAILY active Not Available Not Available No t Available ropivacai ne (PF) 5 mg/mL (0.5 %) injection solution Take 20 mg by injectio n route. 11/12 completed [facility] [id number] 4- Not Available Not Available Not Available Gralise 300 mg tablet,ex tended release once daily 2012 active Not Available Not Available Not Avai lable Gralise 600 mg tablet,ex tended release Take 3 tablets every day by oral route. 01/21 completed Not Available Not Available Not Available Accu-Chek Tracie Plus test strips USE TO TEST DAILY FOR DIABETES active Not Available Not Available No t Available Chantix Continuin g Month Box 1 mg tablet Take 1 tablet twice a day by oral route. 03/12 completed Not Available Not Available Not Available Chantix Starting Month Box 0.5 mg (11)-1 mg (42) tablets in dose pack 09/12 completed Not Available Not Available Not Available Linzess 145 mcg capsule TAKE 1 CAPSULE BY MOUTH EVERY DAY active Not Available Not Available No t Available Invokana 100 mg tablet TAKE 1 TABLET EVERY DAY BY MOUTH active Not Available Not Available No t Available Farxiga 5 mg tablet TAKE 1 TABLET BY MOUTH EVERY DAY 07/08 completed Not Available Not Available Not Available potassium chloride ER 20 mEq tablet,ex tended release TAKE 1 TABLET BY MOUTH DAILY active Not Available Not Available No t Available mometason e 200 mcg/actua tion HFA aerosol inhaler Inhale 2 puffs twice a day by inhalati on route. 06/03 completed Not Available Not Available Not Available Entresto 49 mg-51 mg tablet TAKE 1 TABLET BY MOUTH DAILY active Not Available Not Available No t Available Entresto 24 mg-26 mg tablet TAKE 1 TABLET BY MOUTH DAILY active Not Available Not Available No t Available Narcan 4 mg/actuat ion nasal spray active Not Available Not Available Not Available Restasis MultiDose 0.05 % eye drops INSTILL 1 DROP INTO BOTH EYES TWICE A DAY active Not Available Not Available No t Available semagluti de 0.25 mg or 0.5 mg (2 mg/1.5 mL) subcutane ous pen injector Inject 0.25 mg every week by subcutan eous route for 30 days. 07/08 completed Not Available Not Available Not Available Ozempic 1 mg/dose (4 mg/3 mL) subcutane ous pen injector INJECT 1 MG BY SUBCUTAN EOUS ROUTE ONCE WEEKLY ON THE SAME DAY OF EACHWEEK 07/08 completed Not Available Not Available Not Available Paxlovid 300 mg (150 mg x 2)-100 mg tablets in a dose pack Take two of the 150mg tablets and one of the 100mg tablets twice daily for five days 07/20 completed Not Available Not Available Not Available Ozempic 2 mg/dose (8 mg/3 mL) subcutane ous pen injector INJECT 2 MG UNDER THE SKIN ONE DAY A WEEK active Not Available Not Available No t Available Tameka 200 mg capsule (EUA) TAKE 4 CAPSULES BY MOUTH EVERY 12 HOURS FOR 5 DAYS 07/20 completed Not Available Not Available Not Available Ozempic 0.25 mg or 0.5 mg (2 mg/3 mL) subcutane ous pen injector INJECT 0.5 MG UNDER THE SKIN EVERY WEEK 03/13 completed Not Available Not Available Not Available Vitals Date Recorded Body height Body mass index (BMI) Body weight Heart rate Body temperature Oxygen saturation Oxygen saturation in Arterial blood by Pulse oximetry Systolic blood pressure Diastolic blood pressure Provider Name and Address Organization Details Last Updated DateTime 4 160.02 cm 28.9 kg/m2 80563.5 6 g 83 /min 97.9 [degF] 94 % 94 % 118 mm[Hg] 72 mm[Hg] Abena Goetz [facility] [employer] [facility] 4 11:08:32 Date Recorded Body height Body mass index (BMI) Body weight Provider Name and Address Organization Details Last Updated DateTime 11/08/2023 160.02 cm 28.3 kg/m2 58329.78 g Nichole Block [facility] [employer] [facility] 11/08/2023 13:53:24 Date Recorded Body height Body weight Heart rate Body temperature Oxygen saturation Oxygen saturation in Arterial blood by Pulse oximetry Systolic blood pressure Diastolic blood pressure Provider Name and Address Organization Details Last Updated DateTime 4 160.02 cm 59000.1 5 g 87 /min 97.3 [degF] 95 % 95 % 122 mm[Hg] 74 mm[Hg] Abena Goetz Jenna [facility] 4 15:03:18 Date Recorded Pain severity - 0-10 verbal numeric rating [Score] - Reported Provider Name and Address Organization Details Last Updated DateTime 03/16/2024 7 Debora Davis RN [facility] [employer] [facility] 03/16/2024 15:12:01 Date Recorded Body height Body mass index (BMI) Body weight Body temperature Systolic blood pressure Diastolic blood pressure Provider Name and Address Organization Details Last Updated DateTime 4 160.02 cm 29.9 kg/m2 27097.1 1 g 97 [degF] 120 mm[Hg] 66 mm[Hg] Abena Goetz [facility] [place] [facility] [employer] 4 10:22:39 Date Recorded Body height Body mass index (BMI) Body weight Heart rate Body temperature Oxygen saturation Oxygen saturation in Arterial blood by Pulse oximetry Systolic blood pressure Diastolic blood pressure Provider Name and Address Organization Details Last Updated DateTime 5 160.02 cm 29.8 kg/m2 06317.5 2 g 78 /min 97 [degF] 92 % 92 % 118 mm[Hg] 70 mm[Hg] Kelli Sebastianchesterjenna [place] [employer] [facility] [employer] 5 14:39:35 Social History Question Answer Notes LastModified by Organization Details LastModified Time Tobacco Smoking Status Current Every Day Smoker Not Available [facility] 08/29/2022 02:25:58 Do You Have An Advance Directive? No Has Info Previously At Home [email or web address] Information not available 03/16/2024 What Is Your Level Of Alcohol Consumption? None Information not available 09/10/2023 Are You Blind Or Do You Have Difficulty Seeing? No [email or web address] Information not available 11/12/2022 What Is Your Level Of Caffeine Consumption? Moderate MIGRATION.0301 [id number] Information not available 08/29/2022 How Much Tobacco Do You Chew? None MIGRATION.0301 [id number] Information not available 08/29/2022 In The 14 Days Before Symptom Onset, Have You Had Close Contact With A Laboratory-conf irmed COVID-19 While That Case Was Ill? No MIGRATION.0301 [id number] Information not available 08/29/2022 In The 14 Days Before Symptom Onset, Have You Had Close Contact With A Person Who Is Under Investigation For COVID-19 While That Person Was Ill? No [id number].[id number] [id number] Information not available 08/29/2022 Are You Deaf Or Do You Have Serious Difficulty Hearing? No [email or web address] Information not available 11/12/2022 What Type Of Diet Are You Following? REGULAR MIGRATION.0301 [id number] Information not available 08/29/2022 Which Illicit Or Recreational Drugs Have You Used? No MIGRATION.0301 [id number] Information not available 08/29/2022 Do You Or Have You Ever Used E-cigarettes Or Vape? Never Used Electronic Cigarettes MIGRATION.0301 [id number] Information not available 08/29/2022 Have There Been Any Changes To Your Family Or Social Situation? No [email or web address] Information not available 11/12/2022 What Is The Fluoride Status Of Your Home? Fluoridated MIGRATION.0301 [id number] Information not available 08/29/2022 Are There Any Guns Present In Your Home? No MIGRATION.0301 [id number] Information not available 08/29/2022 Do You Use Insect Repellent Routinely? No [email or web address] Information not available 11/12/2022 Where Do You Live? SingleLevelHouse MIGRATION.0301 [id number] Information not available 08/29/2022 Are You Able To Care For Yourself? Yes [email or web address] Information not available 11/12/2022 Are You Blind Or Do Yo Have Difficulty Seeing? No [email or web address] Information not available 11/12/2022 Are You Deaf Or Do You Have Serious Difficulty Hearing? No [email or web address] Information not available 11/12/2022 Live Alone Of With Others? Alone Information not available 11/12/2022 What Was The Date Of Your Most Recent Tobacco Screening? 03/16/2024 [email or web address] Information not available 03/16/2024 Do You Have Any Pets? No MIGRATION.0301 [id number] Information not available 08/29/2022 What Is Your Relationship Status? MIGRATION.0301 [id number] Information not available 08/29/2022 Do You Use Your Seat Belt Or Car Seat Routinely? Yes MIGRATION.0301 [id number] Information not available 08/29/2022 Do You Have Smoke And Carbon Monoxide Detectors In Your Home? Yes MIGRATION.0301 [id number] Information not available 08/29/2022 Are You Passively Exposed To Smoke? Yes [email or web address] Information not available 11/12/2022 Do You Or Have You Ever Used Smokeless Tobacco? Never Used Smokeless Tobacco MIGRATION.0301 [id number] Information not available 08/29/2022 Are There Any Smokers In Your House? Yes [email or web address] Information not available 11/12/2022 How Much Tobacco Do You Smoke? 1 PPD MIGRATION.0301 [id number] Information not available 08/29/2022 Do You Feel Stressed (tense, Restless, Nervous, Or Anxious, Or Unable To Sleep At Night)? [id number] MIGRATION.030 [id number] Information not available 08/29/2022 Do You Use Sunscreen Routinely? Yes MIGRATION.030 [id number] Information not available 08/29/2022 How Many Years Have You Smoked Tobacco? 50 Information not available 09/10/2023 Have You Recently Traveled Abroad? No MIGRATION.030 [id number] Information not available 08/29/2022 Sex: Unknown Functional Status Question Answer Note LastModified by Organizat ion Details LastModified Time Do you have difficulty walking or climbing stairs? Yes uses a cane [email or web address] Information not available 03/16/2024 Do you have transportation difficulties? No [email or web address] Information not available 11/12/2022 Are you able to walk? YESASSIST [email or web address] Information not available 11/12/2022 Do you have difficulty doing errands alone? Yes [email or web address] Information not available 11/12/2022 Are you able to care for yourself? Yes Information n ot available 11/12/2022 Do you have difficulty dressing or bathing? Yes [email or web address] Information not available 03/16/2024 What is your exercise level? Occasional [id number] Information not available 08/29/2022 Mental Status Question Answer Note LastModified by Organization D etails LastModified Time Do you have difficulty concentrating, remembering or making decisions? No [email or web address] Information no t available 11/12/2022 Family History Relationship Description Onset Age of this Age Resolved Age Notes LastModified by Organization Details LastModified Time Mother Heart disease MIGRATION.102 [id number] Not available 08/29/2022 02:31:00 Mother Carotid artery stenosis MIGRATION.491 [id number] Not available 08/29/2022 02:31:00 Father Heart disease MIGRATION.109 [id number] Not available 08/29/2022 02:31:00 Brother Heart disease Mother 73 deceas ed HTN and Circul atory proble ms and post op from caroti d artery surger y Father deceas ed at 48 from [facility] Four brothe rs none living good health and one of mening itis and other from compli cation s of liver diseas e. One sister 1 good health . [email or web address] Not available 03/16/2024 15:17:17 Brother Family history of stroke [email or web address] Not available 2023 14:39:14 Brother Diabetes mellitus MIGRATION.246 [id number] Not available 08/29/2022 02:31:00 Brother Family history of malignant neoplasm Unknow n type very rare form MIGRATION.039 [id number] Not available 08/29/2022 02:31:00 Brother Cerebrovascu lar accident MIGRATION.087 [id number] Not available 08/29/2022 02:31:00 Father Hypertensive disorder [email or web address] Not available 2023 14:39:00 Unspecified Relation Neuropathy MIGRATION.412 [id number] Not available 08/29/2022 02:31:00 Sister Diabetes mellitus [email or web address] Not available 2023 14:38:53 Mother Hypertensive disorder [email or web address] Not available 2023 14:39:03 Notes:Mother 73 HTN and Circulatory problems and post op from carotid artery surgery Father at 48 from [facility] Four brothers two living good health and one of meningitis and other from complications of liver disease. One sister 1 good health. Medical History Condition Response NERVE DISEASE N BLINDNESS N RHEUMATIC FEVER N KIDNEY STONES N BLADDER PROBLEMS N MRSA N OTHER # 1 N POLIO N LUNG DISEASE/DISORDER N HISTORY OF DRUG ABUSE N RADIATION / CHEMOTHERAPY N COPD Y Other # 2 N BLOOD DISEASES N EAR OR HEARING PROBLEMS N MUMPS N SHINGLES N BOWEL PROBLEMS N FEMALE PROBLEMS / INFECTIONS Y DEPRESSION (INCLUDING POST ) Y STROKE/TIA N ULCERS N BENIGN PROSTATIC HYPERPLASIA N MEASLES N HYPOTENSION N MYOCARDIAL INFARCTION N OBESITY N GERD/NAUSEA N ANEURYSM N URINARY/BLADDER/KIDNEY PROBLEMS N CORONARY ARTERY DISEASE (CAD) N ADDICTION CONCERNS N ENDOMETRIOSIS N Impotence N USE OF BLOOD THINNERS Y SKIN PROBLEMS N GASTROINTESTINAL DISORDER N PERIPHERAL VASCULAR DISEASE N MUSCLE,JOINT OR BONE PROBLEMS N GASTROINTESTINAL BLEEDING N BLOOD CLOTS N ASTHMA N CATARACTS N ERECTILE DYSFUNCTION N VARICOSITIES N GI PROBLEMS N Low Testosterone N INFERTILITY N AIDS/HIV N CHEMOTHERAPY / RADIATION N LIVER DISEASE N MALE HYPOGONADISM N HYPERTENSION Y Deficiency N TOURETTE'S N ANXIETY DISORDER N BLOOD TRANSFUSION N ANEMIA/BLOOD DISORDER N CHRONIC EAR INFECTIONS N BRONCHITIS N TUBERCULOSIS N GLAUCOMA N FOOT PROBLEM N DIVERTICULITIS N CHICKENPOX N SLEEP APNEA N INFECTIOUS DISEASE N HEART ARRHYTHMIA N PROSTATE N INSOMNIA N HIGH CHOLESTEROL / HYPERLIPIDEMIA Y HYPERTHYROIDISM N EYE PROBLEMS N EDEMA N CHRONIC PAIN SYNDROME N HYPOTHYROIDISM N CAROTID BLOCKAGE Y CONSTIPATION N BACK / NECK PROBLEMS Y HAVE YOU BEEN HOSPITALIZED OR SEEN IN PSYCHIATRIC IN THE PAST YEAR ? N ATHEROSCLEROSIS N BREAST PROBLEMS N DIALYSIS N ECZEMA N OSTEOPOROSIS N ARTHRITIS Y NO SIGNIFICANT PAST MEDICAL HISTORY N APPENDICITIS N DIABETES, TYPE Y BAD TEETH N ENT N HEARTBURN / REFLUX Y AUTISM SPECTRUM DISORDER (ASD) N HEPATITIS / LIVER DISEASE N GOUT N SLEEP DISORDER N ALZHEIMER'S DISEASE N Brain Problems N HERPES N DEMENTIA N HEADACHES/MIGRAINES N SEIZURES/EPILEPSY N VASCULAR DISEASE N PACEMAKER N Blood Disorder N DIZZINESS N HEART DISEASE/HEART PROBLEMS N KIDNEY DISEASE N MULTIPLE SCLEROSIS N CARDIAC ARRHYTHMIA N CANCER: SPECIFY N ATRIAL FIBRILLATION N Gall Stones N PULMONARY EMBOLISM N AUTOIMMUNE DISEASE N Gynecological History Statement/Question Response Abnormal Pap Y Date of Last Mammogram 08/24/2020 Date of Last Colonoscopy 03/22/2014 Most Recent Bone Density 11/08/2020 Date of LMP Date of Last Pap Smear Current Control Method Hysterectom y Age at Menarche 14 Most Recent Mammogram 08/14/2020 Breast Problems no Obstetrics History GPAL:G 2 P 2 0 0 2 Type Value Full Term 2 Living 2 Total 2 Immunizations Vaccine Type Date Status Note Provider Nam e and Address Organization Details Recorded Time SARS-COV-2 (COVID-19) vaccine, UNSPECIFIED 1 completed Not Available [facility] 08/29/2022 02:38:01 SARS-COV-2 (COVID-19) vaccine, UNSPECIFIED 1 completed Not Available [facility] 08/29/2022 02:38:01 COVID-19, mRNA, LNP-S, PF, 30 mcg/0.3 mL dose 1 completed Not Available [facility] 08/29/2022 02:38:01 Influenza, split virus, quadrivalent, PF 1 completed Not Available [facility] 08/29/2022 02:38:02 Influenza, split virus, quadrivalent, preservative 9 completed Not Available [facility] 08/29/2022 02:38:02 Tdap 9 completed Not Available [facility] 08/29/2022 02:38:02 Influenza, split virus, quadrivalent, preservative 7 completed Not Available [facility] 08/29/2022 02:38:02 Influenza, split virus, quadrivalent, PF 0 completed Not Available [facility] 08/29/2022 02:38:02 Influenza, split virus, quadrivalent, PF 8 completed Not Available [facility] 08/29/2022 02:38:03 Influenza, split virus, quadrivalent, PF 6 completed Not Available [facility] 08/29/2022 02:38:03 Influenza, split virus, trivalent, preservative 3 completed Not Available [facility] 08/29/2022 02:38:03 Influenza, high-dose, quadrivalent, PF 3 completed Kelli ruffin [facility] 03/28/2023 16:41:26 Pneumococcal conjugate PCV20, polysaccharide ASK990 conjugate, adjuvant, PF 3 completed Kelli ruffin, [facility] 12/13/2022 16:48:50 Influenza, high-dose, trivalent, 4 completed Kelli Slechestera null, [facility] 04/27/2024 11:54:15 Past Encounters Encounter ID Performer Location Encounter Start Date Encounter Closed Date Diagnosis/Indication Diagnosis SNOMED-CT Code Diagnosis ICD10 Code Diagnosis Note [id number] _DARSHAN_Suzy IGRATION_ DEFAULT_1 _1 , 09/12/2020 00:00:00 09/12/2020 18:47:09 [id number] [facility] [address] [place] [address] 10/19/2020 00:00:00 10/19/2020 15:40:50 [id number] [facility] [address] [facility] [address] [place] [address] 11/02/2020 00:00:00 11/02/2020 15:14:25 [id number] [facility] [address] [place] [address] 11/14/2020 00:00:00 11/14/2020 15:22:18 [id number] [facility] [place] [address] [place] [address] 12/22/2020 00:00:00 12/22/2020 15:59:59 [id number] [facility] [place] [address] [place] [address] 12/29/2020 00:00:00 12/29/2020 14:46:43 [id number] [facility] [place] [address] [place] [address] 01/05/2021 00:00:00 01/05/2021 14:40:58 [id number] [facility] [place] [address] [place] [address] 03/14/2021 00:00:00 03/14/2021 14:21:44 [id number] [facility] [place] [address] [address] 03/15/2021 00:00:00 03/15/2021 14:58:04 [id number] [facility] [place] [address] [facility] [address] 07/05/2021 00:00:00 07/05/2021 15:42:05 [id number] [facility] [place] [address] [address] 11/08/2021 00:00:00 11/08/2021 15:56:58 [id number] [facility] [place] [address] [place] [address] 11/20/2021 00:00:00 11/20/2021 16:56:43 [id number] [facility] [place] [address] [address] [address] 03/14/2022 00:00:00 03/14/2022 11:24:02 [id number] [facility] [place] [address] [place] [address] 05/01/2022 00:00:00 05/01/2022 16:05:44 [id number] [facility] [place] [address] [place] [address] 05/14/2022 00:00:00 05/14/2022 12:13:12 [id number] [facility] [place] [address] [place] [address] 06/19/2022 00:00:00 06/19/2022 14:32:46 [id number] [facility] [place] [address] [address] 07/09/2022 00:00:00 07/09/2022 12:10:23 [id number] [facility] [place] [address] [place] [address] 07/31/2022 00:00:00 07/31/2022 14:57:47 [id number] CASE Anaya [facility] [place] [address] [place] [address] 11/01/2022 13:48:54 11/01/2022 15:18:36 Edema of lower extremity 349102138 R60.0 Pain of bi lateral knee joints 9680151643 05799 M25.561 M25.562 Osteoarthritis 607882971 M19.90 Pain of ri ght elbow joint 9185955886 2384017 M25.521 Lateral ep icondylitis of right humerus 3568946595 13801 M77.11 Pain in ri ght hip joint 8302371253 13307 M25.551 Bilateral osteoarthritis of knees 8156239234 13398 M17.0 [id number] Adelso Mo MD [facility] [place] [address] [address] 11/12/2022 11:56:27 11/12/2022 12:46:08 Adult health examination 392714823 Z00.00 Screening for disorder 603485393 Z13.9 Essential hypertension 13154817 I10 Pure hypercholesterolemia 284386939 E78.00 Type 2 kya betes mellitus 70619639 E11.9 Osteoarthritis 456405981 M19.90 Obese class I 4860530843 38289 E66.9 Long-term current use of opiate analgesic drug 3958289940 13142 Z79.275 [id number] Adelso Mo MD [facility] Internal Med [facility] [address] [address] 03/18/2023 11:54:24 03/18/2023 16:02:35 Chronic pain syndrome 919747229 G89.4 Essential hypertension 72550505 I10 Gastroesop hageal reflux disease 028938169 K21.9 Pure hypercholesterolemia 927381616 E78.00 Type 2 kya betes mellitus without complication 162880282 E11.9 [id number] Adelso Mo MD [facility] Internal Med [facility] [address] [address] 07/08/2023 14:20:43 07/08/2023 14:56:28 Essential hypertension 36604181 I10 Pure hypercholesterolemia 814489157 E78.00 Type 2 kya betes mellitus without complication 192282972 E11.9 Obese class I 2351120832 08123 E66.9 [id number] CASE Anaya [facility] [place] [address] [place] [address] 09/10/2023 14:14:31 09/10/2023 15:14:46 Bilateral osteoarthritis of knees 7262130200 94354 M17.0 Pain of bi lateral knee joints 6527956292 15254 M25.561 M25.604 [id number] Adelso Mo MD [facility] Internal Med [facility] [address] [address] 11/04/2023 10:53:34 11/04/2023 11:47:31 Essential hypertension 47212326 I10 Pure hypercholesterolemia 214423697 E78.00 Asthma 093340202 J45.90 9 Chronic pain syndrome 37 8497485 G89.4 [id number] CASE Anaya [facility] [place] [address] [place] [address] 11/08/2023 13:46:55 11/08/2023 15:28:54 Bilateral osteoarthritis of knees 9615390676 91987 M17.0 Pain of ri ght knee joint 1520106842 90232 M25.820 [id number] Adelso Mo MD [facility] Internal Med [facility] [address] [address] 03/16/2024 14:47:58 03/16/2024 15:33:28 Adult health examination 847340016 Z00.00 Screening for disorder 568906011 Z13.9 Essential hypertension 48041339 I10 Pure hypercholesterolemia 361201864 E78.00 Type 2 kya betes mellitus without complication 218782466 E11.9 Gastroesop hageal reflux disease 619132950 K21.9 Asthma 060147217 J45.90 9 [id number] Adelso Mo MD [facility] Internal Med [facility] [address] [place] [address] , [place] [address] 05/14/2024 10:10:25 05/14/2024 10:48:33 Laceration of right ear region 9225313770 0411819 S01.311A [id number] Adelso Mo MD [facility] Internal Med [facility] [address] [address] 07/20/2024 14:27:25 07/20/2024 15:02:50 Essential hypertension 16688533 I10 Pure hypercholesterolemia 828119620 E78.00 Type 2 kya betes mellitus without complication 377702509 E11.9 Chronic pain syndrome 37 8100636 G89.4 Health Concerns Section Related Observation LastModified by Organization Detai ls LastModified Time None Recorded Concern Status LastModified by Organization Details LastModified Time None Recorded Advance Directives Directive N: has info previously at [facility] Payers Encounter Date Sequence Insurance Name Policy Number Policy Mann Covered Member ID Mann Member ID Guarantor Name 11/04/2023 1 [facility] (MEDICARE REPLACEMENT/AD VANTAGE - PPO) [id number] Marcie Barry [id number] Marcie Brary 11/04/2023 2 [facility] ON OR AFTER 12/29/20 (MEDICAID REPLACEMENT - HMO) Marcie Barry [id number] Marcie Barry 11/08/2023 1 [facility] (MEDICARE REPLACEMENT/AD VANTAGE - PPO) [id number] Marcie Rebollar [facility] [id number] Marcie Rebollar [facility] 11/08/2023 2 [facility] ON OR AFTER 12/29/20 (MEDICAID REPLACEMENT - HMO) Marcie Rebollar [facility] [id number] Marcie Rebollar [facility] 03/16/2024 1 [facility] (MEDICARE REPLACEMENT/AD VANTAGE - PPO) [id number] Marcie Rebollar [facility] [id number] Marcie Rebollar [facility] 03/16/2024 2 [facility] ON OR AFTER 12/29/20 (MEDICAID REPLACEMENT - HMO) Marcie Rebollar [facility] [id number] Marcie Rebollar [facility] 05/14/2024 1 [facility] (MEDICARE REPLACEMENT/AD VANTAGE - PPO) [id number] Marcie Rebollar [facility] [id number] Marcie Rebollar [facility] 05/14/2024 2 [facility] ON OR AFTER 12/29/20 (MEDICAID REPLACEMENT - HMO) Marcie Rebollar [facility] [id number] Marcie Rebollar [facility] 07/20/2024 1 [facility] (MEDICARE REPLACEMENT/AD VANTAGE - PPO) [id number] Marcie Rebollar [facility] [id number] Marcie Rebollar [facility] 07/20/2024 2 [facility] ON OR AFTER 12/29/20 (MEDICAID REPLACEMENT - HMO) Marcie Rebollar [facility] [id number] Marcie Rebollar [facility] Notes Date Note Type Note Provider Name and Address Organization Details Recorded Time 11/04/2023 text/html [facility]: [facility] ( 11.04.2023 [facility] 1955 Age: 68 There has been approximately a 12.5 lb weight loss since 07/08/2023. This represents approximately a 7.1% change in weight. Weight change attributable to lifestyle changes. Vital Signs:Blood Pressure: Sitting Rt. Arm 118/72Pulse: Sitting 83 /min and RegularRespiratory Rate: 18Height 63.5 in or 1.6 mWeight 163 lb or 73.9 kgBMI 28.4Temperature: 97.9 F or 36.6 CPulse Oximetry: 94 % at rest on no oxygen Chief Complaint: Addressed in HPI Problems or conditions discussed in the HPI were the only ones reviewed during the encounter.Only social and family history addressed in the HPI were reviewed during this encounter. Attendant(s): NoneConstitutional and Systemic Symptoms:Increased shortness of breath with wheezing Medication Reconciliation: from medication list. Homgamjqlex06/01/2022: Low-dose CT scan of the chest demonstrated no evidence any malignancy of the lung. There was some thickening of the mucosa of the esophagus noted. 11/30/2021: Ultrasound of the thyroid demonstrated there is a 1.7 x 1.3 x 1.2 nodular mixed echogenic nodule noted in the left thyroid lobe. Falls and in intermediate category would consider possible cutaneous biopsy. 07/16/2022: Arterial Doppler demonstrates no significant arterial obstruction of the extremities 12/18/2022: Carotid ultrasound 50-69% stenosis of the left internal carotid artery. Less than 50% stenosis on the right. Vertebral flow is antegrade bilaterally 03/26/2023: MRI of the lumbar spine demonstrates persistent significant neural foraminal stenosis. The spinal stenosis noted at lower levels essentially unchanged from previous examination. No high-grade or serious spinal stenosis identified. 07-17-2023: Low-dose CT scan the check negative for signs of malignancy. Several small nodules are noted. Recommendations to repeat these low-dose CT in one year. History of Present Illness #1. Essential Hypertension: Stage: Stage I Interval Neurological Complaints no headaches, dizziness, weakness, visual changes, ataxia, aphasia and apraxia. No shortness of breath, orthopnea or cardiovascular symptoms. No other symptoms related to end organ damage. Pressure has been under excellent control. Currently normal. No other end organ symptoms or findings. Therapy reviewed regarding management of hypertension and includes salt restriction and Entresto. #2. Type II Hypercholesterolaemia: Currently taking medication and tolerating well. No interval complaints of any muscle pain or arthralgia. No significant liver changes with medications. Last lipid panel: fair control. Therapy reviewed regarding treatment of cholesterol management and include diet and Crestor. #3. Hx of asthma. Daily medications: Dulera but has not been taking. He has been instructed to resume this and continue on the albuterol rescue inhaler. Uses bronchodilators several times per month. Night time exacerbations: 3-4 times monthly There has been no cough, congestion, or sputum production. No changes in exercise tolerance. Denies any fever or chills. Tolerating the medications without problems. The current status could be classified as mild persistent asthma. Using nebulizer Treatments: No. #4. Chronic pain management for chronic generalized joint pain Since last examination somewhat improved Interval Testing: noneHas tried NSAIDS partial relief requiring additional medication. Pain Description: constant, exacerbated by activity and interferes with enjoyment and ability to perform activities of daily living. Currently seeing or has seen in the past a Trib[employer] Member: No .Pain - Enjoyment of Life - General Activity ScalePain on Average: 5Enjoyment of Live: 5General Activity: 4Enjoyment of Life - General Activity Scale: 5Currently regimen consists of Currently taking hydrocodone 5 mg q.i.d.. In the process of reducing dosage to one t.i.d. For a week then twice daily for week then once daily for week and then discontinue. as prescribed with no evidence of abuse or self prescribing. Current Average Morphine Milligram Approximate Equivalent: 20 mg approximated if taking full dosage daily. Recommend: NA.Benzodiazepines or other hypnotics: yes and have discussed reducing dose.Alternative pain management modalities (acupuncture - behavior therapy- additional PT - SNRIs) have been discussed and have either been tried in the past or not acceptable alternatives to patient or not available in our location.Will Reducing the opioid dosage and in the process of weaning off.Urine Testing: not indicated and this time.Controlled substance database yes and no discrepancies or multiple prescribers noted. Pill counts when available have been acceptable. No other signs of any abuse.Patient reports condition is stable and is able to function with the medication. Denies any misuse or adverse effects.TREATMENT OBJECTIVE: Enhance ability to manage pain independently, improved function and sustain quality of life. Recommendations or alternative therapies and lifestyle changes are discussed on each visit. Has shown improvement inf functionality. Has been educated on the side effects,risks and any black box warnings. Has verbalized the dangers of some of the medications regarding driving and cooperating heavy machinery and have advised against this. Active Medication ListPlavix 75 MG TABLET, FILM COATED Once DailyAmitriptyline 25 MG TABLET One HsLasix 40 MG One Bid For EdemaTrazodone 150 MG One Hs For SleepPrilosec 20 MG (CAPSULE, DELAYED REL PELLETS - ORAL) One Daily Prn For RefluxNorco 325-5 MG One Four Times A DayProair Hfa 2 Puffs Four Times A DayOzempic 2 MG WeeklyRestasis 0.05% (EMULSION - OPHTHALMIC) As DidrectedXanax 1 MG TABLET One Three Times A DayPrimidone 50 MG (TABLET - ORAL) 3tabs Am And 3 Tabs PmEntresto 49 MG-51 MG (TABLET - ORAL) DailyDulera 0.005 MG/INH-0.2 MG/INH (AEROSOL, METERED - INHALATION) Two Puffs BidCrestor 40 MG (TABLET - ORAL) Once DailyLinzess 145MCG (CAPSULE - ORAL) QdPotassium Chloride 20 MEQ (TABLET - ORAL) QdGabapentin 300 MG CAPSULE Qd Adverse Drug Reactions ReviewedCeclor RashPenicillin RashEry Tab NauseaCodeine NauseaAce Inhibitors CoughOxybutynin Dry MouthNorvasc EdemaLipitor Seizures Vaccination and Tdnnznmtgyop6295-34 Tlewlylzi7488-75 Prevnar 20 Ma9861-20 Covid Booster Rfsrjq5420-67 Covid Pfizer Surgical Ibzyhpg3962-38 Cervical Oqtiyrazykg2570-88 Pain Iuei1953-71 Lap Diqutiwogxbtajr5268-51 Right XWO0220-59 Right Vbbu1546-93 Vaginal Fwvkgybsdwkx2061-77 Fuwrkbisbbesj2008-01 Eye Surgery Preventative Tvrsoqe4508/15/2023 ALBUMIN 4.6 G/DL H007/30/2023 JVKXNRXIYATLC16/17/2024 LDCT 5007/09/2023 HAIC 5.1 %06/11/2023 MAMMOGRAM / MICRO ALBUMIN <6.0 MG/L N011/08/2020 DEXA SCAN03/10/2014 COLONOSCOPY (10 YEARS) 03/10/2024 Social HistorySmokes one pack daily for 25 years. Drinks socially. Works as a restaurant cashier. Family HistoryMother 73 HTN and Circulatory problems and post op from carotid artery surgeryFather at 48 from [facility] brothers two living good health and one of meningitis and other from complications of liver disease. One sister 1 good health. Adelso Mo MD [address] [facility], [address], [place], [address], [facility] [employer] 11/04/2023 11:38:47 11/08/2023 text/html patient returns with right knee pain she has had previous cortisone injections and Synvisc-One we did both knees 2 months ago she had Synvisc-One injections bilaterally the left knee is feeling good the right knee really did not get much relief. She states it has been 2 months now and is still having some pain. The x-rays do show worse osteoarthritis in the right knee than left with near zbpn-qq-tcxq changes in the medial compartment on the right knee. She would like to try a shot of cortisone today she states her pain is about a 6 on a scale 1-10. Denies any new symptoms no new trauma or injury to the right knee no erythema effusion or signs of infection. CASE Anaya [address] [facility], [facility] [address], [place], [address], [facility] [employer] 11/08/2023 14:08:00 03/16/2024 text/html Patient Name: Angelica Rebollar ChurchDate Of Service: Saturday ( 03.16.2024 ): 1955 Age: 68 Vital Signs:Blood Pressure: Sitting Rt. Arm 122/74Pulse: Sitting 81 /min and RegularRespiratory Rate: 14Height 63.5 in or 1.6 mWeight 164 lb or 74.4 kgBMI 28.6Temperature: 97.3 F or 36.3 CPulse Oximetry: 95 % at rest on no oxygen Chief Complaint: Addressed in HPI Problems or conditions discussed in the HPI were the only ones reviewed during the encounter.Only social and family history addressed in the HPI were reviewed during this encounter. A significant, separate E/M service was performed to evaluate the current and new problems. Attendant(s): NoneConstitutional and Systemic Symptoms:none Medication Reconciliation: from medication list. Aastvutqxic42/16/2023: Arterial Doppler demonstrates no significant arterial obstruction of the extremities 12/18/2022: Carotid ultrasound 50-69% stenosis of the left internal carotid artery. Less than 50% stenosis on the right. Vertebral flow is antegrade bilaterally 03/26/2023: MRI of the lumbar spine demonstrates persistent significant neural foraminal stenosis. The spinal stenosis noted at lower levels essentially unchanged from previous examination. No high-grade or serious spinal stenosis identified. 07-17-2023: Low-dose CT scan the check negative for signs of malignancy. Several small nodules are noted. Recommendations to repeat low-dose CT in one year. History of Present Illness Reviewed the findings of the preventative health visit. Addressed all areas with the patient, patient's family or caregivers. Preventative examinations and testing immunizations - vaccinations, colonic neoplasm screening, mammograms and DEXA Scan all reviewed and ordered where patient was amenable to the recommendations. Cognitive function was normal. Depression addressed and where necessary medications were adjusted or instituted. End of life and living will briefly discussed with patient and where these can be filled out and legally executed. Other blood and imaging studies were ordered if considered necessary. Other recommendations may be found in the encounter note. #1. Essential Hypertension: Stage: normal Interval Neurological Complaints no headaches. No shortness of breath, orthopnea or cardiovascular symptoms. No other symptoms related to end organ damage. Pressure has been under excellent control. Currently normal. No other end organ symptoms or findings. Therapy reviewed regarding management of hypertension and includes salt restriction and Entresto. #2. Type II Hypercholesterolaemia: Currently taking medication and tolerating well. No interval complaints of any muscle pain or arthralgia. No significant liver changes with medications. Last lipid panel: excellent control. Therapy reviewed regarding treatment of cholesterol management and include diet and Crestor. #3. Type II Diabetes: Has had no polyuria polyphagia or polydipsia. Has had no hypoglycemic like responses. No new history of any numbness, tingling, weakness or visual problems. No nausea, anorexia or other constitutional symptoms. There has been no foot problems or non healing lesions. [facility] HA[facility]: 5.1 Calculated MB mg%. CGM: No. Average blood sugars unknown. Checking sugars : not at all. Medication Types Include: diet and GLP-1 Secondary complications include none. Macro-vascular complications include Ozempic. Therapy reviewed regarding diabetic management and include good Compliance: ARBs Renal Protection: statins Lipid management: A1 Urinary microalbumin: has seen eye doctor within the last year . Ophthalmological: Good Control 6.2 - 7.0. Control: none #4. Hx of esophageal reflux currently stable. Hx of Complications: improved The severity, duration and intensity of symptoms have most meals. Frequency: a regular Treatment consists medications taken on Prilosec basis. Current therapy includes no nausea, eructation, vomiting, hematemesis, dysphagia, velopharyngeal insufficiency and odynophagia. There has been no. No change in he frequency or intensity of symptoms. Has had no melena. Has had NA . Discussed use of H2 antagonists Dulera and Proair Hfa. #5. Hx of asthma. Daily medications: very infrequently. Uses bronchodilators 3-4 times monthly. Night time exacerbations: mild persistent asthma There has been no cough, congestion, or sputum production. No changes in exercise tolerance. Denies any fever or chills. Tolerating the medications without problems. The current status could be classified as No. Using nebulizer Treatments: No. Active Medication ListPlavix 75 MG TABLET, FILM COATED Once DailyAmitriptyline 25 MG TABLET One HsMinoxidil 2.5 MG TABLET One Half Tablet DailyLasix 40 MG One Bid For EdemaTrazodone 150 MG One Hs For SleepPrilosec 20 MG (CAPSULE, DELAYED REL PELLETS - ORAL) One Daily Prn For RefluxMeloxicam 7.5 MG TABLET One Four Times A DayProair Hfa 2 Puffs Four Times A DayOzempic 2 MG WeeklyRestasis 0.05% (EMULSION - OPHTHALMIC) As DidrectedXanax 1 MG TABLET One Three Times A DayPrimidone 50 MG (TABLET - ORAL) 3tabs Am And 3 Tabs PmEntresto 24; 26 MG; MG TABLET, FILM COATED DailyDulera 0.005 MG/INH-0.2 MG/INH (AEROSOL, METERED - INHALATION) Two Puffs BidCrestor 40 MG (TABLET - ORAL) Once DailyLinzess 145MCG (CAPSULE - ORAL) QdPotassium Chloride 20 MEQ (TABLET - ORAL) QdGabapentin 300 MG CAPSULE Qd Adverse Drug Reactions ReviewedCeclor RashPenicillin RashEry Tab NauseaCodeine NauseaAce Inhibitors CoughOxybutynin Dry MouthNorvasc EdemaLipitor Seizures Vaccination and Glhoxwrhslon6852-43 Scvtwbyxz4007-38 Prevnar 20 Jl9689-19 Covid Booster Wdytuv4670-29 Covid Pfizer Surgical Qbvonci6261-05 Cervical Umakdjnrtsn1317-07 Pain Feld4938-41 Lap Mkyryfqfytllbcg6132-98 Right QZV0190-98 Right Qywz2182-71 Vaginal Ycirxijgqhdd6659-48 Nbtgmvsstmvul2371-70 Eye Surgery Preventative Testing( ) 01/28/2024 Optometry( ) 08/15/2023 Albumin 4.6 G/DL H( ) 07/30/2023 Ophthalmology( ) 07/17/2023 LDCT 07/17/2024( ) 07/09/2023 HAIC 5.1 %( ) 06/11/2023 Mammogram 06/11/2025( ) 03/18/2023 Micro Albumin <6.0 MG/L N(X) 11/08/2020 DEXA Scan 11/08/2022(X) 03/10/2014 Colonoscopy (10 Years) 03/10/2024 Social HistorySmokes one pack daily for 25 years. Drinks socially. Works as a restaurant cashier. Family HistoryMother 73 HTN and Circulatory problems and post op from carotid artery surgeryFather at 48 [facility] brothers none living good health and one of meningitis and other from complications of liver disease. One sister 1 good health. Active Medication ListPlavix 75 MG TABLET, FILM COATED Once DailyAmitriptyline 25 MG TABLET One HsMinoxidil 2.5 MG TABLET One Half Tablet DailyLasix 40 MG One Bid For EdemaTrazodone 150 MG One Hs For SleepPrilosec 20 MG (CAPSULE, DELAYED REL PELLETS - ORAL) One Daily Prn For RefluxMeloxicam 7.5 MG TABLET One Four Times A DayProair Hfa 2 Puffs Four Times A DayOzempic 2 MG WeeklyRestasis 0.05% (EMULSION - OPHTHALMIC) As DidrectedXanax 1 MG TABLET One Three Times A DayPrimidone 50 MG (TABLET - ORAL) 3tabs Am And 3 Tabs PmEntresto 24; 26 MG; MG TABLET, FILM COATED DailyDulera 0.005 MG/INH-0.2 MG/INH (AEROSOL, METERED - INHALATION) Two Puffs BidCrestor 40 MG (TABLET - ORAL) Once DailyLinzess 145MCG (CAPSULE - ORAL) QdPotassium Chloride 20 MEQ (TABLET - ORAL) QdGabapentin 300 MG CAPSULE Qd Adverse Drug Reactions ReviewedCeclor RashPenicillin RashEry Tab NauseaCodeine NauseaAce Inhibitors CoughOxybutynin Dry MouthNorvasc EdemaLipitor Seizures Vaccination and Hihjgmhmqvzt2684-27 Xrekmbvtw6828-58 Prevnar 20 Tt6744-44 Covid Booster Tqrlkh2656-01 Covid Pfizer Surgical Qnovvsk9055-71 Cervical Mfrxlxwjhzm8583-76 Pain Fhzz6495-37 Lap Afncmreozvhrjtc6153-00 Right BRI7280-94 Right Xmky1676-52 Vaginal Grwdnldebriy3588-23 Lveuxvvboayps2301-00 Eye Surgery Preventative Testing( ) 01/28/2024 Optometry( ) 08/15/2023 Albumin 4.6 G/DL H( ) 07/30/2023 Ophthalmology( ) 07/17/2023 LDCT 07/17/2024( ) 07/09/2023 HAIC 5.1 %( ) 06/11/2023 Mammogram 06/11/2025( ) 03/18/2023 Micro Albumin <6.0 MG/L N(X) 11/08/2020 DEXA Scan 11/08/2022(X) 03/10/2014 Colonoscopy (10 Years) 03/10/2024 Social HistorySmokes one pack daily for 25 years. Drinks socially. Works as a restaurant cashier. Family HistoryMother 73 HTN and Circulatory problems and post op [facility] carotid artery surgeryFather [facility] brothers none living good health and one of meningitis and other from complications of liver disease. One sister 1 good health. TEST RESULT RANGE UNITSCBC/COMPLETE BLD COUNT W/DIFF Date: 12/25/2023WHITE BLOOD CELLS 5.8 4.2-10.8 X10'3/ULHEMOGLOBIN 13.5 12.0-15.6 G/DLHEMATOCRIT 39.6 35.7-45.7 %PLATELETS 233 150-400 X10'3/ULCOMPREHENSIVE METABOLIC PANEL Date: 08/15/2023SODIUM 137 137-145 MMOL/LPOTASSIUM 4.5 3.5-5.1 MMOL/LGLUCOSE 83 70-99 MG/DLBUN 12 8-19 MG/DLCREATININE 0.70 0.66-1.25 MG/DLGFR >60ALKALINE PHOSPHATASE 142 38-126 U/LALANINE AMINOTRANSFERASE 24 0-35 U/LASPARTATE AMINOTRANSFERASE 32 15-37 U/LBILIRUBIN, TOTAL 0.50 0.20-1.30 MG/DLHEMOGLOBIN A1C Date: 07/09/2023HA1C 5.1 4.0-6.0 %LIPID PANEL Date: 01/09/2024CHOLESTEROL 129 140-199 MG/DLTRIGLYCERIDES 101 0-150 MG/DLHDL CHOLESTEROL 61 40- MG/DLLDL CHOLESTEROL, CALCULATED 48 0-130 MG/DL Adelso Mo MD [address] [facility], [facility] [address], [place], [address], [facility] 03/16/2024 15:26:05 05/14/2024 text/html Patient Name: Angelica Rebollar ChurchDate Of Service: May ( 05.14.2024 ): 1955 Age: 68 There has been approximately a 5 lb weight gain since 03/16/2024. This represents approximately a 3.0% change in weight. Weight change attributable to lifestyle changes. Vital Signs:Blood Pressure: Sitting Rt. Arm 120/66Pulse: Sitting 80 /min and RegularRespiratory Rate: 16Height 63.5 in or 1.6 mWeight 169 lb or 76.7 kgBMI 29.5Temperature: 97 F or 36.1 C Chief Complaint: Addressed in HPI Problems or conditions discussed in the HPI were the only ones reviewed during the encounter.Only social and family history addressed in the HPI were reviewed during this encounter. Attendant(s): NoneConstitutional and Systemic Symptoms:none Medication Reconciliation: from medication list. History of Present Illness #1. Recent biopsy on Saturday05/11/2024 on the right ear. Subsequently some hemorrhaging done. Subsequently went to the emergency room had several stitches put in the ear. Appears to be healing well does have some dried blood in the area. Will try to clean off a little bit of peroxide. Will have to have the patient come back in several days have the sutures removed.: Active Medication ListPlavix 75 MG TABLET, FILM COATED Once DailyAmitriptyline 25 MG TABLET One HsMinoxidil 2.5 MG TABLET One Half Tablet DailyLasix 40 MG One Bid For EdemaTrazodone 150 MG One Hs For SleepPrilosec 20 MG (CAPSULE, DELAYED REL PELLETS - ORAL) One Daily Prn For RefluxMeloxicam 7.5 MG TABLET One Four Times A DayProair Hfa 2 Puffs Four Times A DayOzempic 2 MG WeeklyRestasis 0.05% (EMULSION - OPHTHALMIC) As DidrectedXanax 1 MG TABLET One Three Times A DayPrimidone 50 MG (TABLET - ORAL) 3tabs Am And 3 Tabs PmEntresto 24; 26 MG; MG TABLET, FILM COATED DailyDulera 0.005 MG/INH-0.2 MG/INH (AEROSOL, METERED - INHALATION) Two Puffs BidCrestor 40 MG (TABLET - ORAL) Once DailyLinzess 145MCG (CAPSULE - ORAL) QdPotassium Chloride 20 MEQ (TABLET - ORAL) QdGabapentin 300 MG CAPSULE Qd Adelso Mo MD [address] [facility] [address], [place], [address], [facility] [place] [employer] 05/14/2024 10:46:33 07/20/2024 text/html Patient Name: Angelica Rebollar LeonardaDate Of Service: Saturday ( 07.20.2024 ): 1955 Age: 68 Vital Signs:Blood Pressure: Sitting Rt. Arm 118/70Pulse: Sitting 78 /min and RegularRespiratory Rate: 16Height 63 in or 1.6 mWeight 168 lb or 76.2 kgBMI 29.8Temperature: 97 F or 36.1 CPulse Oximetry: 92 % at rest on no oxygen Chief Complaint: Addressed in HPI Problems or conditions discussed in the HPI were the only ones reviewed during the encounter.Only social and family history addressed in the HPI were reviewed during this encounter. Attendant(s): NoneConstitutional and Systemic Symptoms:none Medication Reconciliation: by patient. Dequqimhpkc19/20/2023: Carotid ultrasound 50-69% stenosis of the left internal carotid artery. Less than 50% stenosis on the right. Vertebral flow is antegrade bilaterally 03/26/2023: MRI of the lumbar spine demonstrates persistent significant neural foraminal stenosis. The spinal stenosis noted at lower levels essentially unchanged from previous examination. No high-grade or serious spinal stenosis identified. 07-17-2023: Low-dose CT scan the check negative for signs of malignancy. Several small nodules are noted. Recommendations to repeat low-dose CT in one year. History of Present Illness #1. Essential Hypertension: Stage: Stage I Interval Neurological Complaints no headaches, dizziness, weakness, visual changes, ataxia, aphasia and apraxia. No shortness of breath, orthopnea or cardiovascular symptoms. No other symptoms related to end organ damage. Pressure has been under excellent control. Currently normal. No other end organ symptoms or findings. Therapy reviewed regarding management of hypertension and includes salt restriction and Entresto. #2. Type II Hypercholesterolaemia: Currently taking medication and tolerating well. No interval complaints of any muscle pain or arthralgia. No significant liver changes with medications. Last lipid panel: fair control. Therapy reviewed regarding treatment of cholesterol management and include diet and Crestor. #3. Type II Diabetes: Has had no polyuria polyphagia or polydipsia. Has had no hypoglycemic like responses. No new history of any numbness, tingling, weakness or visual problems. No nausea, anorexia or other constitutional symptoms. There has been no foot problems or non healing lesions. The last HAIC was DCCT HAIC: 5.3 Calculated MB mg%. CGM: No. Average blood sugars not taking blood sugars regularly and instructed on the importance of monitor these values. Checking sugars : not at all. Medication Types Include: GLP-1 Secondary complications include none. Macro-vascular complications include none. Therapy reviewed regarding diabetic management and include Ozempic Compliance: good Renal Protection: ARBs Lipid management: statins Urinary microalbumin: A1 . Ophthalmological: has seen eye doctor within the last year. Control: Below 6.2 #4. Chronic pain management for chronic lumbar, knees and hips Since last examination no significant change since last examination Interval Testing: noneHas tried NSAIDS partial relief requiring additional medication. Pain Description: constant, exacerbated by activity and interferes with enjoyment and ability to perform activities of daily living. Currently seeing or has seen in the past a [employer] Member: Yes .Pain - Enjoyment of Life - General Activity ScalePain on Average: 4Enjoyment of Live: 5General Activity: 4Enjoyment of Life - General Activity Scale: 4Currently regimen consists of medications as prescribed with no evidence of abuse or self prescribing. Current Average Morphine Milligram Approximate Equivalent: NA mg approximated if taking full dosage daily. Recommend: NA.Benzodiazepines or other hypnotics: no.Alternative pain management modalities (acupuncture - behavior therapy- additional PT - SNRIs) have been discussed and have either been tried in the past or not acceptable alternatives to patient or not available in our location.Will kept medications the same.Urine Testing: not indicated and this time.Controlled substance database no. Pill counts when available have been acceptable. No other signs of any abuse.Patient reports condition is stable and is able to function with the medication. Denies any misuse or adverse effects.TREATMENT OBJECTIVE: Enhance ability to manage pain independently, improved function and sustain quality of life. Recommendations or alternative therapies and lifestyle changes are discussed on each visit. Has shown improvement inf functionality. Has been educated on the side effects,risks and any black box warnings. Has verbalized the dangers of some of the medications regarding driving and cooperating heavy machinery and have advised against this. Active Medication ListPlavix 75 MG TABLET, FILM COATED Once DailyAmitriptyline 25 MG TABLET One HsMinoxidil 2.5 MG TABLET One Half Tablet DailyLasix 40 MG One Bid For EdemaTrazodone 150 MG One Hs For SleepPrilosec 20 MG (CAPSULE, DELAYED REL PELLETS - ORAL) One Daily Prn For RefluxMeloxicam 7.5 MG TABLET One Four Times A DayProair Hfa 2 Puffs Four Times A DayOzempic 2 MG WeeklyRestasis 0.05% (EMULSION - OPHTHALMIC) As DidrectedXanax 1 MG TABLET One Three Times A DayPrimidone 50 MG (TABLET - ORAL) 3tabs Am And 3 Tabs PmEntresto 24; 26 MG; MG TABLET, FILM COATED DailyDulera 0.005 MG/INH-0.2 MG/INH (AEROSOL, METERED - INHALATION) Two Puffs BidCrestor 40 MG (TABLET - ORAL) Once DailyLinzess 145MCG (CAPSULE - ORAL) QdPotassium Chloride 20 MEQ (TABLET - ORAL) Qd Adverse Drug Reactions ReviewedCeclor RashPenicillin RashEry Tab NauseaCodeine NauseaAce Inhibitors CoughOxybutynin Dry MouthNorvasc EdemaLipitor Seizures Vaccination and Immunization( ) 2024-03 INFLUENZA( ) 2024-03 TB TEST( ) 2020-09 COVID Mobango( ) 2022-10 PREVNAR 20 ED(X) 2021-03 COVID BOOSTER PFIZER Surgical [id number] Cervical Klqwipflgpb4361-62 Pain Tirn3615-94 Lap Dactzhtqgjzwsle0468-37 Right [id number] Right Njml8864-55 Vaginal Bzrjultaniul2981-40 Hkvgqpvwlxdco6427-70 Eye Surgery Preventative Testing( ) 04/27/2024 DEXA Scan (Normal)( ) 03/27/2024 Cologuard 03/27/2027( ) 03/18/2024 Albumin 4.0 G/DL( ) 03/18/2024 Micro Albumin <6.0 MG/L( ) 03/18/2024 HAIC 5.3 %( ) 01/28/2024 Optometry( ) 07/30/2023 Ophthalmology(X) 07/17/2023 LDCT 07/17/2024( ) 06/11/2023 Mammogram 06/11/2025 Social HistorySmokes one pack daily for 25 years. Drinks socially. Works as a restaurant cashier. Family HistoryMother 75 HTN and Circulatory problems and post op from carotid artery surgeryFather at 48 from ASHDFour brothers two living good health and one of meningitis and other from complications of liver disease. One sister 1 good health. TEST RESULT RANGE UNITSLIPID PANEL Date: 03/18/2024HOLESTEROL 142 140-199 MG/DLTRIGLYCERIDES 103 0-150 MG/DLHDL CHOLESTEROL 77 40- MG/DLLDL CHOLESTEROL, CALCULATED 44 0-130 MG/DLCBC/COMPLETE BLD COUNT W/DIFF Date: 03/18/2024WHITE BLOOD CELLS 6.8 4.2-10.8 X10'3/ULHEMATOCRIT 40.3 35.7-45.7 %HEMOGLOBIN 13.2 12.0-15.6 G/DLPLATELETS 221 150-400 X10'3/ULCOMPREHENSIVE METABOLIC PANEL Date: 03/18/2024SODIUM 133 137-145 MMOL/LPOTASSIUM 4.0 3.5-5.1 MMOL/LGLUCOSE 86 70-99 MG/DLBUN 11 8-19 MG/DLCREATININE 0.66 0.66-1.25 MG/DLGFR >60ALKALINE PHOSPHATASE 129 38-126 U/LALANINE AMINOTRANSFERASE 22 0-35 U/LASPARTATE AMINOTRANSFERASE 26 15-37 U/LHA1C, SEND-OUT TO [facility] Date: 03/18/2024HEMOGLOBIN A1C 5.3 4.8-5.6 % Adelso Mo MD [address] [facility] [facility] [address], [place], [address], [place] [facility] 07/20/2024 14:49:13 OBGyn Episode No OBEpisode recorded.
== END 2024-08-14 10:32 | disposition home or self-care (01) ==
PROVIDERS: PCP Internal Medicine; Visit Provider Internal Medicine
DX: Z12.2 Encounter for screening for malignant neoplasm of respiratory organs (principal); Z87.891 Personal history of nicotine dependence
CPT/HCPCS: 71271

== ENCOUNTER 2024-09-25 13:42 | Outpatient (CLI) | payer MEDICARE, MEDICAID, SELFPAY ==
--- NOTE | ~2024-09-25 | MM_ITS ---
EXAMINATION: MM screening lyndsey BI w damien HISTORY: Screening TECHNIQUE: Craniocaudal and mediolateral oblique 3-D tomosynthesis images were obtained and synthetic 2-D images were generated. CAD analysis was submitted and interpreted. COMPARISON: No prior mammogram is available for comparison at this institution. BREAST PARENCHYMAL COMPOSITION: There are scattered areas of fibroglandular density. FINDINGS: Unremarkable parenchymal pattern without suspicious microcalcifications, architectural distortion, di screte masses or significant asymmetry. IMPRESSION: 1. No mammographic evidence of malignancy. In isolation, a benign report is limited. Comparison with prior examinations are needed. BI-RADS Category 0: Incomplete: Needs comparison with prior mammograms. Reviewed, dictated and finalized at location A.
--- OUTSIDE RECORDS SUMMARY | 2024-09-25 13:50 | XMS_ITS | CONTINUITY OF CARE DOCUMENT ---
Author Name aron sharp Address Unknown Organization [facility] Address [address] [place] [address] Phone [phone] Care Team Providers Care District Or District Office Director Name Role Phone Ildefonso CESPEDES, Lucia Unavailable [phone] PAN CESPEDES, ADELSO Unavailable ADELSO PERLA MD Unavailable PROBLEMS Condition Status Date Provider Notes Hyperlipidemia active Lucia Fregoso MD ANXIETY DISORDER active Lucia Fregoso MD CHEST PAIN-, NL STRESS NUC 01/10 , LVH ON ECHO active Lucia Fregoso MD OBESITY active Lucia Fregoso MD BACK PAIN, CHRONIC active Lucia Fregoso MD PVD carotid doppler 50-69% BL 09/2017 completed - Miguel Ahmedzai Fibromyalgia active Lucia Fregoso MD Diastolic dysfunction , pt has declined sleep study active Lucia Fregoso MD Carotid arterial disease--carotid US 50-69%, LICA , 10/2023 active Lucia Fregoso MD HTN essential--echo ef 65%, 11/2020 active Lucia Fregoso MD Diabetes mellitus active Lucia Fregoso MD Preoperative cardiovascular evaluation for knee surgery completed - Miguel Barclaymedzamery Leg pain, bilateral active Lucia Fregoso MD TOBACCO ABUSE still smoking, intolerant of chantix and wellbutrin active Lucia Fregoso MD COPD pfts 01/10 mild restriction active Lucia Fregoso MD HYPERCHOLESTEROLEMIA completed - Lucia Fregoso MD lipitor changed to simvastatin ENCOUNTERS Date Type Provider Location Encounter Diag nosis - In-person encounter Office Visit Lucia Fregoso MD [facility] - In-person encounter Office Visit Lucia Fregoso MD [facility] Carotid arterial disease--carotid US 50-69%, LICA , 10/2023 - In-person encounter Office Visit Lucia Fregoso MD [facility] Carotid arterial disease--carotid US 50-69%, LICA , 10/2023 - In-person encounter Office Visit Lucia Fregoso MD [facility] Preoperative cardiovascular evaluation for knee surgery - In-person encounter Office Visit Lucia Fregoso MD [facility] Carotid arterial disease--carotid US 50-69%, LICA , 10/2023Leg pain, bilateral - In-person encounter Office Visit Lucia Fregoso MD [facility] - In-person encounter Office Visit Lucia Fregoso MD [facility] Carotid arterial disease--carotid US 50-69%, LICA , 10/2023HTN essential--echo ef 65%, 11/2020 - In-person encounter Office Visit Lucia Fregoso MD [facility] - In-person encounter Office Visit Lucia Fregoso MD [facility] - In-person encounter Office Visit Lucia Fregoso MD [facility] Diabetes mellitus - In-person encounter Office Visit Lucia Fregoso MD [facility] Carotid arterial disease--carotid US 50-69%, LICA , 10/2023HTN essential--echo ef 65%, 11/2020 - In-person encounter Office Visit Lucia Fregoso MD [facility] - In-person encounter Office Visit Lucia Fregoso MD [facility] TOBACCO ABUSE still smoking, intolerant of chantix and wellbutrin - In-person encounter Office Visit Lucia Fregoso MD [facility] Diastolic dysfunction , pt has declined sleep study - In-person encounter Office Visit Lucia Fregoso MD [facility] - In-person encounter Office Visit Lucia Fregoso MD [facility] - In-person encounter Office Visit Lucia Fregoso MD [facility] - In-person encounter Office Visit Lucia Fregoso MD [facility] - In-person encounter Office Visit Lucia Fregoso MD [facility] - In-person encounter Office Visit Lucia Fregoso MD [facility] Diastolic dysfunction , pt has declined sleep study - In-person encounter Office Visit Lucia Fregoso MD [facility] PVD carotid doppler 50-69% BL 09/2017 - In-person encounter Office Visit Lucia Fregoso MD [facility] - In-person encounter Office Visit Lucia Fregoso MD [facility] PVD carotid doppler 50-69% BL 09/2017Fibromyalgia - In-person encounter Office Visit Lucia Fregoso MD [facility] HYPERCHOLESTEROLEMIACHEST PAIN-, NL STRESS NUC 01/10 , LVH ON ECHOCOPD pfts 01/10 mild restrictionTOBACCO ABUSE still smoking, intolerant of chantix and wellbutrin - In-person encounter Office Visit Lucia Fregoso MD [facility] Office HYPERCHOLESTEROLEMIAANXIETY DISORDERCHEST PAIN-, NL STRESS NUC 01/10 , LVH ON ECHOCOPD pfts 01/10 mild restrictionOBESITYBACK PAIN, CHRONICTOBACCO ABUSE still smoking, intolerant of chantix and wellbutrin VITAL SIGNS Date Observation Value Provider Body Mass Index (Ratio) 28.87 kg/m2 Ramin Fregoso MD blood pressure, diastolic 69 mm[Hg] Sharri aguilar Hillman blood pressure, systolic 121 mm[Hg] Brissa warren Hillman oxygen saturation, oximetry 98 % [facility] 12 /min [facility] weight E&M 163 [lb_av] [facility] height E&M 63 [in_i] [facility] blood pressure, cuff size regular Sharri [facility] Body Mass Index (Ratio) 29.05 kg/m2 Erick ntcorina Cranmer blood pressure, diastolic 82 mm[Hg] Li nkLogic blood pressure, systolic 105 mm[Hg] Megan kLogic pulse rate 75 /min Masoud blood pressure, cuff size regular Jackson rret blood pressure, diastolic 82 mm[Hg] Ja rret blood pressure, systolic 105 mm[Hg] Jar ret oxygen saturation, oximetry 97 % Masoud respiratory rate E&M 14 /min Masoud weight E&M 164 [lb_av] Masoud da y height E&M 63 [in_i] Masoud [facility] Body Mass Index (Ratio) 31.00 kg/m2 Ramin Fregoso MD weight E&M 175 [lb_av] Sandrine Mcginnis pulse rate 78 /min Sandrine Mcginnis blood pressure, cuff size regular Sade Mcginnis blood pressure, diastolic 88 mm[Hg] Sade Mcginnis blood pressure, systolic 101 mm[Hg] Luis choi Mcginnis oxygen saturation, oximetry 99 % Sandrine [place] respiratory rate E&M 16 /min Sandrine Almonte hans height E&M 63 [in_i] Sandrine [place] Body Mass Index (Ratio) 34.01 kg/m2 Ramin Fregoso MD blood pressure, diastolic 76 mm[Hg] Sharri heath Frias blood pressure, systolic 121 mm[Hg] Any a Rodriguez pulse rate 81 /min Marietta Rodriguez oxygen saturation, oximetry 94 % Marietta Rodriguez weight E&M 192 [lb_av] Marietta Rodriguez blood pressure, cuff size large Sharri joe Rodriguez height E&M 63 [in_i] Marietta Rodriguez Body Mass Index (Ratio) 34.89 kg/m2 Ramin Fregoso MD blood pressure, cuff size large [facility]ani [facility] blood pressure, diastolic 77 mm[Hg] Giovani rri [facility] blood pressure, systolic 136 mm[Hg] Nic kings Fatima oxygen saturation, oximetry 95 % Nadia Fatima respiratory rate E&M 16 /min Nadia blackburn pulse rate 77 /min Nadia Bourgeois [facility] weight E&M 197 [lb_av] Nadia Montyuenenfe [facility] height E&M 63 [in_i] Nadia Montyuenenfe ld blood pressure, diastolic 72 mm[Hg] Ri az Denymedzai blood pressure, systolic 136 mm[Hg] Jocelyn z Denymedzai blood pressure, cuff size regular Ca therine Wh[place]ore height E&M 63 [in_i] Janett Jese Body Mass Index (Ratio) 34.36 kg/m2 Ramin Fregoso MD blood pressure, cuff size regular Ca therine [place] blood pressure, diastolic 63 mm[Hg] Ca therine [place] blood pressure, systolic 104 mm[Hg] Cat herine Jese oxygen saturation, oximetry 93 % Janett Jese respiratory rate E&M 16 /min Catheri ne [place] pulse rate 82 /min Janett Jese weight E&M 194 [lb_av] Janett [place] height E&M 63 [in_i] Janett Jese Body Mass Index (Ratio) 33.12 kg/m2 Ramin Fregoso MD blood pressure, cuff size large Ke rri Gruenenfelder blood pressure, diastolic 56 mm[Hg] Ke rri Gruenenfelder blood pressure, systolic 102 mm[Hg] Ker ri Gruenenfelder oxygen saturation, oximetry 95 % Nadia Grmalunenfelder respiratory rate E&M 16 /min Nadia G tamelaenenfelder pulse rate 83 /min Nadia Gruenenfe lder weight E&M 187 [lb_av] Nadia Gruenenfe lder height E&M 63 [in_i] Nadia Gruenenfe lder Body Mass Index (Ratio) 31.39 kg/m2 Ramin Fregoso MD blood pressure, diastolic 60 mm[Hg] Lazaro Hurtado blood pressure, systolic 106 mm[Hg] Jigna Hurtado oxygen saturation, oximetry 96 % Adria Hurtado respiratory rate E&M 20 /min Andreea Hurtado pulse rate 83 /min Adria nuno weight E&M 177.2 [lb_av] Adria lacy height E&M 63 [in_i] Adria Valenzuela nson Body Mass Index (Ratio) 32.06 kg/m2 Ramin Fregoso MD blood pressure, cuff size large Ke rri Gruenenfelder blood pressure, diastolic 80 mm[Hg] Ke rri Gruenenfelder blood pressure, systolic 130 mm[Hg] Ker ri Christianelder oxygen saturation, oximetry 96 % Nadia Grcherienfelder respiratory rate E&M 16 /min Nadia G ruenenfelder pulse rate 81 /min Nadia Christelle lder weight E&M 181 [lb_av] Nadia Grmalunenfe lder height E&M 63 [in_i] Nadia Ananenfe lder temperature site temporal Alana Tank sley temperature E&M 97.7 [degF] Alana Tanks marie Body Mass Index (Ratio) 33.12 kg/m2 Ramin Fregoso MD blood pressure, cuff size regular Cy edith Hart blood pressure, diastolic 70 mm[Hg] Cy ntjefrya Tanner blood pressure, systolic 130 mm[Hg] Areli sophie Hart respiratory rate E&M 16 /min Pushpasophie Hart pulse rate 81 /min Pushpa Lacey l weight E&M 187 [lb_av] Lucia Fregoso MD height E&M 63 [in_i] Pushpa Lacey l Body Mass Index (Ratio) 33.83 kg/m2 Ramin Fregoso MD blood pressure, diastolic 82 mm[Hg] Ki lltan Easley blood pressure, systolic 130 mm[Hg] Avi matteosergei Candelariaam oxygen saturation, oximetry 96 % Maverick Easley respiratory rate E&M 16 /min [place] Easley pulse rate 74 /min Maverick Easley weight E&M 191 [lb_av] [place] Easley height E&M 63 [in_i] [place] Easley Body Mass Index (Ratio) 33.83 kg/m2 Ramin Fregoso MD blood pressure, cuff size large Ke rri Gruenenfelder blood pressure, diastolic 76 mm[Hg] Ke rri Gruenenfelder blood pressure, systolic 130 mm[Hg] Nic ri Eviner oxygen saturation, oximetry 98 % Nadia Kushal respiratory rate E&M 18 /min Nadia Justin stringernfelder pulse rate 84 /min Nadia Grmalunearturoe lder weight E&M 191 [lb_av] Nadia Grmalunenfe lder height E&M 63 [in_i] Nadia Grmalunenfe lder Body Mass Index (Ratio) 35.07 kg/m2 Ramin Fregoso MD blood pressure, diastolic 82 mm[Hg] Mikel sutton Easley blood pressure, systolic 128 mm[Hg] Avi felipe Easley oxygen saturation, oximetry 98 % Maverick Easley respiratory rate E&M 16 /min Maverick Easley pulse rate 87 /min [place] Easley weight E&M 198 [lb_av] Maverick Easley height E&M 63 [in_i] [place] Easley Body Mass Index (Ratio) 36.52 kg/m2 Ramin Fregoso MD blood pressure, resting Yes Danna Hurtado blood pressure, diastolic 82 mm[Hg] Lazaro Hurtado blood pressure, systolic 149 mm[Hg] Jigna Hurtado oxygen saturation, oximetry 97 % Adria Hurtado respiratory rate E&M 18 /min Andreea Hurtado pulse rate 82 /min Adria nuno weight E&M 206.2 [lb_av] Adria lacy height E&M 63 [in_i] Adria Valenzuela nssaman Body Mass Index (Ratio) 39.68 kg/m2 Ramin Fregoso MD blood pressure, cuff size regular Ke rri Gruenenfelder blood pressure, diastolic 69 mm[Hg] Ke rri Gruenenfelder blood pressure, systolic 116 mm[Hg] Nic ri Gruenenfelder oxygen saturation, oximetry 95 % Nadia Ananenfelder respiratory rate E&M 16 /min Nadia G tamelaenenfelder pulse rate 80 /min Nadia Grmailee lder weight E&M 224 [lb_av] Nadia Gruenenfe lder height E&M 63 [in_i] Nadia Gruenenfe lder Body Mass Index (Ratio) 37.90 kg/m2 Ramin Fregoso MD blood pressure, cuff size large Ke rri Gruenenfelder blood pressure, diastolic 70 mm[Hg] Ke rri Gruenenfelder blood pressure, systolic 130 mm[Hg] Nic ri Kushal oxygen saturation, oximetry 96 % Nadia Grmalunenfelder respiratory rate E&M 16 /min Nadia G tamelaenenfelder pulse rate 82 /min Nadia Gruenenfe lder weight E&M 214 [lb_av] Nadia Gruenenfe lder height E&M 63 [in_i] Nadia Gruenenfe lder blood pressure, diastolic 62 mm[Hg] Ke rri Gruenenfelder blood pressure, systolic 102 mm[Hg] Ker ri Gruenenfelder pulse rate 73 /min Nadia Bourgeois lder oxygen saturation, oximetry 95 % Nadia Gonzaleselder respiratory rate E&M 16 /min Nadia stringernfelder Body Mass Index (Ratio) 36.31 kg/m2 Gallegos mery Pereznearturoelder weight E&M 205 [lb_av] Nadia Pereznearturoe lder blood pressure, diastolic 72 mm[Hg] Giovani marshall Gruenearturoelder blood pressure, systolic 110 mm[Hg] Nic ku Grmalunearturoelder pulse rate 72 /min Nadia Gonzalese lder oxygen saturation, oximetry 90 % Nadia Gonzaleselder respiratory rate E&M 18 /min Nadia adamselder Body Mass Index (Ratio) 37.90 kg/m2 Gallegos mery Gonzaleselder weight E&M 214 [lb_av] Nadia Gonzalese lder blood pressure, diastolic 70 mm[Hg] Lazaro Hurtado blood pressure, systolic 150 mm[Hg] Jigna Hurtado pulse rate 69 /min Adria dinhon oxygen saturation, oximetry 94 % Adria Hurtado respiratory rate E&M 16 /min Andreea Hurtado Body Mass Index (Ratio) 36.63 kg/m2 Danna Hurtado weight E&M 206.8 [lb_av] Adria lacy blood pressure, diastolic 70 mm[Hg] Lazaro Hurtado blood pressure, systolic 137 mm[Hg] Jigna Hurtado pulse rate 81 /min Adria Valenzuela nson oxygen saturation, oximetry 97 % Adria Hurtado respiratory rate E&M 16 /min Andreea Hurtado Body Mass Index (Ratio) 35.18 kg/m2 Danna Hurtado weight E&M 198.6 [lb_av] Adria lacy Body Mass Index (Ratio) 32.24 kg/m2 Anea vivian Brown blood pressure, diastolic 75 mm[Hg] An eatris Brown blood pressure, systolic 145 mm[Hg] Ane atris Brown pulse rate 75 /min Aneatris Brown oxygen saturation, oximetry 99 % Aneatris Brown respiratory rate E&M 17 /min Aneatri s Brown weight E&M 182 [lb_av] Aneatris [facility] Body Mass Index (Ratio) 34.18 kg/m2 Estuardo Oates blood pressure, diastolic 70 mm[Hg] Joseph samina Oates blood pressure, systolic 135 mm[Hg] Joseph samina Oates pulse rate 79 /min Josephsamina Oates oxygen saturation, oximetry 97 % Josephsamina Oates respiratory rate E&M 18 /min Josephsamina Oates weight E&M 193 [lb_av] Josephsamina Oates blood pressure, diastolic 78 mm[Hg] An kat blood pressure, systolic 136 mm[Hg] Ane atris pulse rate 77 /min Aneatris oxygen saturation, oximetry 97 % Aneatris respiratory rate E&M 17 /min Aneatri s weight E&M 195 [lb_av] Aneatris Body Mass Index (Ratio) 38.01 kg/m2 Yaritza a Stuedivya blood pressure, diastolic 70 mm[Hg] Ta shmuel Stueber blood pressure, systolic 110 mm[Hg] Johnnie joe Stueber pulse rate 92 /min Angelica Stueber oxygen saturation, oximetry 97 % Angelica Cruz respiratory rate E&M 16 /min Angelica monson weight E&M 213.8 [lb_av] Angelica Curz height E&M 63 [in_i] Angelica Cruz ALLERGIES Allergy Name Onset Date Reaction Criticality Status METOLAZONE seizure seizure Low Criticality acti ve LIPITOR seizures seizures Low Criticality ac tive HISTORY OF MEDICATION USE Medication Status Instructions Dates Provider Indications Com ments Linzess 145 mcg capsule active TAKE 1 CAPSULE BY MOUTH EVERY DAY Lucia Fregoso MD minoxidil 2.5 mg tablet active Lucia Fregoso MD meloxicam 15 mg tablet active Lucia Fregoso MD primidone 250 mg tablet active 0.5 tab in am and evening, and 1 pill at night Lucia Fregoso MD gabapentin 300 mg capsule active Lucia Fregoso MD amitriptyline 25 mg tablet active Miguel De La Cruz Ozempic 2 mg/dose (8 mg/3 mL) pen injector active Miguel De La Cruz clopidogrel 75 mg tablet active TAKE 1 TABLET BY MOUTH EVERY DAY Miguel De La Cruz Plavix 75 mg tablet completed Take 1 tablet by mouth once a day - Laury Green rosuvastatin 40 mg tablet active Miguel De La Cruz Entresto 24-26 mg tablet active TAKE 1 TABLET BY MOUTH DAILY Miguel De La Cruz simvastatin 40 mg tablet completed TAKE 1 TABLET BY MOUTH DAILY - Miguel De La Cruz Farxiga 5 mg tablet completed Take 1 once a day - Miguel De La Cruz potassium chloride 20 mEq tablet extended release active Take 1 tablet once a day Janett Jese #30, 30 days supply, Prescribed by ADELSO PERLA, Filled 10/02/2018 hydrocodone-acet aminophen 7.5-325 mg tablet active Take 1 tablet by mouth four times a day Janett Jese #120, 30 days supply, Prescribed by ADELSO PERLA, Filled 10/22/2018 aspirin 81 mg tablet,delayed release (DR/EC) completed 1 tablet by mouth once a day - Miguel De La Cruz Dulera 200-5 mcg/actuation HFA aerosol inhaler active 2 puff twice a day as needed Nadia Fatima INVOKANA 100 MG ORAL TABLET completed take one pill a day - Nadia Fatima ESTRADIOL PATCH WEEKLY completed once a week - Nadia Fatima CHANTIX CONTINUING MONTH BOSSMAN 1 MG ORAL TABLET completed as per package directions - Nadia Fatima OXYBUTYNIN CHLORIDE 5 MG ORAL TABLET completed po daily - Nadia Fatima INVOKANA 100 MG ORAL TABLET completed take one pill a day - Lucia Fregoso MD ESTRADIOL 0.0375 MG/24HR TRANSDERMAL PATCH TWICE WEEKLY completed once a week - Lucia Fregoso MD OXYBUTYNIN CHLORIDE ER 10 MG ORAL TABLET EXTENDED RELEASE 24 HOUR completed take on tab daily - Nadia Fatima baclofen 10 mg tablet completed 1 twice a day - Miguel De La Cruz Entresto 49-51 mg tablet completed Take 1 tablet by mouth once a day - Eddy HILARIO HFA 108 (90 Base) MCG/ACT INHALATION AEROSOL SOLUTION completed 2 puffs every 4-6 hours - Nadia Fatima 30 doses MORPHINE INFUSION completed 0.4981 mg/day - Lucia Fregoso MD Gralise 600 mg tablet extended release 24 hr completed 1 three times a day - Lucia Fregoso MD PROGESTERONE 100 MG ORAL CAPS completed 1 tab daily - Lucia Fregoso MD simvastatin 40 mg tablet completed ONE TAB. DAILY - Lucia Fregoso MD primidone 50 mg tablet completed 3 twice a day - Lucia Fregoso MD ProAir HFA 90 mcg/actuation HFA aerosol inhaler active 2 puff twice a day Lucia Fregoso MD KLOR-CON 10 10 MEQ ORAL TABLET EXTENDED RELEASE completed 2 tabs daily - Aneatris Brown TOPAMAX 25 MG ORAL TABLET completed 3 tabs inmorinig and 21 in the evening - Aneatris Brown LIPITOR 40 MG ORAL TABLET completed 1 tab daily - Lucia Fregoso MD BACTRIM DS 800-160 MG ORAL TABLET completed 2 daily - Aneatris Brown alprazolam 1 mg tablet active 1-3 times Lucia Fregoso MD trazodone 150 mg tablet active Take 1 tablet every night Janettleonora Sawant HYDROCODONE-ACET AMINOPHEN 10-325 MG ORAL TABLET completed every 4 hours PRN - Maverick Easley furosemide 40 mg tablet active Take 2 tablets once daily Miguel De La Cruz DICLOFENAC SODIUM 75 MG ORAL TABLET DELAYED RELEASE completed 2 daily - Lucia Fregoso MD ADULT ASPIRIN LOW STRENGTH 81 MG ORAL TABLET DISINTEGRATING completed 1 daily - Nadia Fatima FINASTERIDE 5 MG ORAL TABLET completed 1/2 tab saturday, Saturday, Saturday - Nadia Fatima CYMBALTA 60 MG ORAL CAPSULE DELAYED RELEASE PARTICLES completed take one pill a day - Pushpa Hart METOLAZONE 2.5 MG ORAL TABLET completed take only on those that you have swelling - Lucia Fregoso MD CARBIDOPA-LEVODO PA 25-100 MG ORAL TABLET completed twice daily - Aneatris Brown PRILOSEC 20 MG ORAL CAPSULE DELAYED RELEASE active once a day Lucia Fregoso MD TIZANIDINE HCL 4 MG ORAL TABLET completed every 6 hours PRN - Nadia Fatima GRALISE 600 MG ORAL TABLET completed 3 in afternoon 3 hours before HS - Aneatris Brown LOSARTAN POTASSIUM 50 MG ORAL TABLET completed 1 tab daily - Lucia Fregoso MD ESTRADIOL 0.5 MG ORAL TABLET completed 1 tab for 1 week for 3weeks,then off a week - Lucia Fregoso MD SOCIAL HISTORY Date Observation Value Provider alcohol use no Miguel De La Cruz smoking/tobacco cess ation, patient education and counseling yes Miguel De La Cruz smoking, date started 1972 Miguel aguiar smoking history, tot al pack/year 43 Miguel De La Cruz smoking history, tot al pack/day 1 Miguel De La Cruz cigarette use yes Miguel De La Cruz smoking status Current every day smoker R martine De La Cruz alcohol use no Miguel De La Cruz smoking/tobacco cess ation, patient education and counseling yes Miguel De La Cruz smoking, date started 1972 Miguel aguiar smoking history, tot al pack/year 43 Miguel De La Cruz smoking history, tot al pack/day 1 Miguel De La Cruz cigarette use yes Miguel De La Cruz smoking status Current every day smoker R martine De La Cruz social history E&M S moking History: P audra currently smokes every day. Miguel De La Cruz smoking status Current every day smoker Natalie Mcginnis social history reviewed E&M revi ewed - no changes required Miguel De La Cruz smoking/tobacco cess ation, patient education and counseling yes Marietta Frias smoking, date started 1972 Marietta ulloa smoking history, tot al pack/year 43 Marietta Frias smoking history, tot al pack/day 1 Marietta Frias cigarette use yes Marietta Frias smoking status Current every day smoker A shmuel Frias social history reviewed E&M revi ewed - no changes required Miguel Sullivanmery social history E&M S moking History: P atient currently smokes every day. P atient has been counseled to quit. Miguel Timothykusum smoking/tobacco cess ation, patient education and counseling yes Nadia Fatima smoking, date started 1972 Nadia Clearyer smoking history, tot al pack/year 43 Nadia Clearyer smoking history, tot al pack/day 1 Nadia Fatima cigarette use yes Nadia hale smoking status Current every day smoker K lynn Fatima social history reviewed E&M revi ewed - no changes required Miguel Timothykusum smoking/tobacco cess ation, patient education and counseling yes Janett Jese smoking, date started 1972 Cather ine Whittemore smoking history, tot al pack/year 43 Janett Whittemore smoking history, tot al pack/day 1 Janett Whittemore cigarette use yes Janett Jese smoking status Current every day smoker C atherine Whittemore social history reviewed E&M revi ewed - no changes required Lucia Fregoso MD social history E&M S moking History: P atient currently smokes every day. P atient has been counseled to quit. Miguel Timothyzamery smoking/tobacco cess ation, patient education and counseling yes Janett Whittemore smoking, date started 1972 Cather ine Whittemore smoking history, tot al pack/year 43 Janett Whittemore smoking history, tot al pack/day 1 Janett Jese cigarette use yes Janett Jese smoking status Current every day smoker C atherine Jese social history reviewed E&M revi ewed - no changes required Miguel Sullivanmery social history E&M S moking History: P atient currently smokes every day. P atient has been counseled to quit. Eddy Del Real social history reviewed E&M revi ewed - no changes required Eddy Del Real smoking/tobacco cess ation, patient education and counseling yes Nadia Fatima smoking, date started 1972 Nadia Fatima smoking history, tot al pack/year 43 Nadia Fatima smoking history, tot al pack/day 1 Nadia Fatima cigarette use yes Nadia hale smoking status Current every day smoker K lynn Kushal social history E&M S moking History: P atient currently smokes every day. P atient has been counseled to quit. Eddy Del Real social history reviewed E&M revi ewed - no changes required Eddy Del Real smoking/tobacco cess ation, patient education and counseling yes Adria Hurtado smoking, date started 1972 Ashley Hurtado smoking history, tot al pack/year 43 Adria Hurtado smoking history, tot al pack/day 1 Adria Hurtado cigarette use yes Adria Tyson enson smoking status Current every day smoker Suzy meridaRaven Bryant social history E&M S moking History: P atient currently smokes every day. P atient has been counseled to quit. Lucia Fregoso MD social history reviewed E&M revi ewed - no changes required Emilie Stanton smoking/tobacco cess ation, patient education and counseling yes Nadia Kushal smoking, date started 1972 Nadia Kushal smoking history, tot al pack/year 43 Nadia Fatima smoking history, tot al pack/day 1 Nadia Fatima cigarette use yes Nadia hale smoking status Current every day smoker Leanna Fatima social history E&M S moking History: P atient currently smokes every day. P atient has been counseled to quit. Lucia Fregoso MD social history reviewed E&M revi ewed - no changes required Lucia Fregoso MD smoking/tobacco cess ation, patient education and counseling yes Pushpa Hart smoking, date started 1972 Lance Hart smoking history, tot al pack/year 43 Pushpa Hart smoking history, tot al pack/day 1 Pushpa Hart cigarette use yes Pushpa Snow leslie smoking status Current every day smoker Freddy opalediht Hart social history E&M S moking History: P atient currently smokes every day. P atient has been counseled to quit. Lucia Fregoso MD social history reviewed E&M revi ewed - no changes required Lucia Fregoso MD number of grandchildren Lucia Easley smoking/tobacco cess ation, patient education and counseling yes [facility] alcohol use no [facility] smoking, date started 1972 Killee n Easley smoking history, tot al pack/year 43 [place] Easley smoking history, tot al pack/day 1 Maverick [place] [facility] Current every day smoker K anastacia Easley social history E&M S moking History: P atient currently smokes every day. P atient has been counseled to quit. Lucia Fregoso MD social history reviewed E&M revi ewed - no changes required Lucia Fregoso MD smoking/tobacco cess ation, patient education and counseling yes Nadia Kushal alcohol use no Nadia Christianclinton tracee smoking, date started 1972 Nadia Millancheriearturofanypiyush smoking history, tot al pack/year 43 Nadia Millancheriearturofanypiyush smoking history, tot al pack/day 1 Nadia Millanedilma cigarette use yes Nadia hale smoking status Current every day smoker K lynn Millancheriearturoalexia smoking/tobacco cess ation, patient education and counseling yes Maverick Easley alcohol use no Maverick Easley smoking, date started 1972 Victoriano mai Easley smoking history, tot al pack/year 43 Maverick Easley smoking history, tot al pack/day 1 Maverick [place] cigarette use yes [place] smoking status Current every day smoker Leanna galaviz Easley smoking/tobacco cess ation, patient education and counseling yes AdriaMónica Tysonenson alcohol use no AdriaMónica nuno smoking, date started 1972 Ashley Hurtado smoking history, tot al pack/year 43 AdriaMónica Tysonenson smoking history, tot al pack/day 1 Adria Tysonenson cigarette use yes Adria Jah bambi smoking status Current every day smoker Suzy Amanda Hurtado social history reviewed E&M revi ewed - no changes required Lucia Fregoso MD smoking/tobacco cess ation, patient education and counseling yes Nadia Kushal alcohol use no Nadia Bourgeois tracee smoking, date started 1972 Nadia Kushal smoking history, tot al pack/year 43 Nadia Kushal smoking history, tot al pack/day 1 Nadia Millanedilma cigarette use yes Nadia hale smoking status Current every day smoker Leanna Fatima social history reviewed E&M revi ewed - no changes required Lucia Fregoso MD smoking/tobacco cess ation, patient education and counseling yes Nadia Gonzalesalexia alcohol use no Nadia Bourgeois lder smoking, date started 1973 Nadia Fatima smoking history, tot al pack/year 43 Nadia Fatima smoking history, tot al pack/day 1 Nadia Fatima cigarette use yes Nadia hale smoking status Current every day smoker Leanna Millancheriearturoalexia smoking history, tot al pack/year 43 Lucia Fregoso MD smoking history, tot al pack/year 43 Danna Long RN social history reviewed E&M revi ewed - no changes required Lucia Fregoso MD smoking status Current every day smoker Leanna bailey Kushal social history reviewed E&M revi ewed - no changes required Lucia Fregoso MD alcohol use no Nadia Bourgeois lder smoking status Current every day smoker Leanna Fatima social history reviewed E&M revi ewed - no changes required Lucia Fregoso MD smoking/tobacco cess ation, patient education and counseling yes Adria Hurtado alcohol use no AdriaMónica Tysone fabrizioon smoking, date started 1973 Ashley Hurtado smoking history, tot al pack/year 40 Adria Hurtado smoking history, tot al pack/day 1 Adria Hurtado cigarette use yes Adria lacy smoking status Current every day smoker M Amanda Hurtado social history reviewed E&M revi ewed - no changes required Lucia Fregoso MD smoking/tobacco cess ation, patient education and counseling yes Adria Hurtado alcohol use no Adria nuno smoking, date started 1973 Ashley Hurtado smoking history, tot al pack/year 40 Adria Hurtado smoking history, tot al pack/day 1 Adria Hurtado cigarette use yes Adria lacy smoking status current every day smoker M Amanda Hurtado smoking/tobacco cess ation, patient education and counseling yes Lucia Fregoso MD social history reviewed E&M revi ewed - no changes required Adam Braswell smoking/tobacco cess ation, patient education and counseling yes Lucia Fregoso MD social history reviewed E&M revi ewed - no changes required Lucia Fregoso MD social history reviewed E&M revi ewed - no changes required Lucia Fregoso MD smoking/tobacco cess ation, patient education and counseling yes Lucia Fregoso MD smoking history, tot al pack/day 1 Angelica Cruz smoking history, tot al pack/year 40 Angelica Stguillaume cigarette use yes Angelica Cruz smoking, date started 1972 Angelica Stmaluber smoking status current every day smoker T marietta Stmaluber FAMILY HISTORY Family Member Condition First Degree Blood Relative No Known Fam irene History INSURANCE PROVIDERS Payer name Policy type / Coverage type [employer] party ID [id number] (PPO C-SNP) Commercial insurance company [id number] [place] (2) Medicaid [id number] ADVANCE DIRECTIVES Name Date DISCUSSED - NO DECISION MADE TREATMENT PLAN Date Name Performer [id number],Miguel Alves i [id number],Miguel Alves i [id number],Mgiuel Alves i [id number],S, Miguel Ahmedza i [id number],S, Miguel Ahmedza i [id number],S, Miguel Ahmedza i [id number],S, Miguel Ahmedza i [id number],S, Miguel Ahmedza i [id number],S, Miguel Ahmedza i [id number],S, Miguel Ahmedza i [id number],S, Miguel Ahmedza i [id number],S, Miguel Ahmedza i [id number],S, Miguel Ahmedza i [id number],S, Miguel Ahmedza i [id number],S, Miguel Ahmedza i [id number],S, Miguel Ahmedza i [id number],S, Miguel Ahmedza i [id number],S, Miguel Ahmedza i [id number],S, Miguel Ahmedza i [id number],S, Miguel Ahmedza i [id number],S, Miguel Ahmedza i [id number],S, Miguel Ahmedza i [id number],S, Miguel Ahmedza i [id number],S, Miguel Ahmedza i [id number],B, Miguel Ahmedza i [id number],S, Miguel Ahmedza i [id number],S, Miguel Aguirreza i [id number],S, Miguel Aguirreza i [id number],S, Miguel Aguirreza i [id number],S, Miguel Aguirreza i [id number],S, Miguel Aguirreza i [id number],S, Miguel Aguirreza i [id number],S, Miguel Aguirreza i [id number],S, Miguel Sullivan i Cardiology Lucia Fregoso MD Cardiology Lucia Fregoso MD Cardiology: H er updated medication list for this problem includes: Minoxidil 2.5 Mg Tablet (Minoxidil) Furosemide 40 Mg Tablet (Furosemide) ..... Take 2 tablets once daily T his visit has been a part of the consistent, comprehensive, and ongoing management of the chronic medical condition(s) listed above for the patient. Lucia Fregoso MD Cardiology:repeat carotid in 6 m [facility] Lucia Fregoso MD Cardiology Miguel De La Cruz Cardiology: H er updated medication list for this problem includes: Rosuvastatin 40 Mg Tablet (Rosuvastatin) Miguel De La Cruz Cardiology Miguel De La Cruz Cardiology Miguel De La Cruz Cardiology: H er updated medication list for this problem includes: Clopidogrel 75 Mg Tablet (Clopidogrel) ..... Take 1 tablet by mouth every day Miguel De La Cruz Cardiology: B P today: 105/82 P rior BP: 101/88 (05/21/2023) Her updated medication list for this problem includes: Furosemide 40 Mg Tablet (Furosemide) ..... Take 2 tablets once daily Miguel De La Cruz Cardiology Miguel De La Cruz Cardiology Miguel Ahmedzai Cardiology Miguel Ahmedzai Cardiology Miguel Ahmedzai Cardiology Miguel Ahmedzai Cardiology Miguel Ahmedzai Cardiology Miguel Ahmedzai Cardiology Miguel Ahmedzai Cardiology Miguel Ahmedzai Cardiology Miguel Ahmedzai Cardiology Miguel Ahmedzai Cardiology Miguel Ahmedzai Cardiology Miguel Ahmedzai Cardiology Miguel Ahmedzai Cardiology Miguel Ahmedzai Cardiology Miguel Ahmedzai Cardiology Miguel Ahmedzai Cardiology Miguel Ahmedzai Cardiology Miguel Ahmedzai Cardiology Miguel Ahmedzai Cardiology Miguel Ahmedzai Cardiology Miguel Ahmedzai Cardiology Miguel Ahmedzai Cardiology Miguel Ahmedzai Cardiology Miguel Ahmedzai Cardiology Miguel Ahmedzai Cardiology Miguel Ahmedzai Cardiology Miguel Ahmedzai Cardiology Miguel Ahmedzai Cardiology Miguel Ahmedzai Cardiology Miguel Ahmedzai Cardiology Miguel Ahmedzai Cardiology Miguel Ahmedzai Cardiology Miguel Ahmedzai Cardiology Follow up [place] [facility] Follow up [place] [facility] Follow up [place] [facility] Follow up [place] [facility] Follow up [place] [facility] Follow up [place] [facility] Follow up [place] [facility] [place] [place] [place] [facility] [place] [facility] [place] [facility] [place] Follow up - 6mo fu, c arotid doppler in may Lucia Fregoso MD Cardiology Follow up - 6mo fu, c arotid doppler in may Lucia Fregoso MD Cardiology Follow up - 6mo fu, c arotid doppler in may Lucia Fregoso MD Cardiology Follow up - 6mo fu, c arotid doppler in may Lucia Fregoso MD Cardiology Follow up - 6mo fu, c arotid doppler in may Lucia Fregoso MD Cardiology follow up Lucia borden MD Cardiology follow up Lucia borden MD Cardiology follow up Lucia borden MD Cardiology follow up Lucia bodren MD Cardiology Lucia Fregoso MD Cardiology Lucia Fregoso MD Cardiology Lucia Fregoso MD Cardiology Lucia Fregoso MD Cardiology Lucia Fregoso MD Cardiology Follow up Lucia borden MD Cardiology Follow up Lucia borden MD Cardiology Follow up Lucia borden MD Cardiology Follow up Lucia borden MD Cardiology Follow up : S trongly encouraged to quit, especially in light of carotid blockages and fam hx. Lucia Fregoso MD Cardiology Follow up Lucia borden MD Cardiology Lucia Fregoso MD Cardiology Lucia Fregoso MD Cardiology Lucia Fregoso MD Cardiology Lucia Fregoso MD Cardiology Lucia Fregoso MD Cardiology Hospital Follow up To zehra Fregoso MD Cardiology Hospital Follow up To zehra Fregoso MD Cardiology Hospital Follow up To zehra Fregoso MD Cardiology Hospital Follow up To zehra Fregoso MD Cardiology Hospital Follow up To zehra Fregoso MD Cardiology Hospital Follow up To zehra Fregoso MD Cardiology Follow up Toniya Sing h Cardiology Follow up Toniya Sing h Cardiology Follow up Toniya Sin bree [facility] Follow up [facility]oniya Sing h Cardiology Follow up Toniya Sing h Cardiology Follow up Toniya Sing h Cardiology Follow up Toniya [facility] Card[facility] Follow up Toniya [facility] Follow up Toniya [facility] Cardiology Follow up Toniya [facility] Cardiology Follow up Toniya Sing h Cardiology Follow up Toniya Sing h Cardiology Follow up Toniya Sing h Cardiology Follow up Toniya Sing h Cardiology Follow up Toniya Sing h Cardiology Follow up Toniya Sing h Cardiology Toniheath Fregoso MD Cardiology Tonfaisal Fregoso MD Cardiology Tonfaisal Fregoso MD Cardiology Tonfaisal Fregoso MD Cardiology Tonfaisal Fregoso MD Cardiology Lucia Fregoso MD Cardiology Lucia Fregoso MD Cardiology Lucia Fregoso MD Cardiology Lucia Fregoso MD Cardiology Tonfaisal Fregoso MD Cardiology Lucia Fregoso MD FOLLOW UP: T he following medications were removed from the medication list: Lipitor 40 Mg Tabs (Atorvastatin calcium) ..... 1 tab daily Her updated medication list for this problem includes: Simvastatin 40 Mg Tabs (Simvastatin) ..... One tab. daily Lucia Fregoso MD FOLLOW UP Lucia Fregoso MD FOLLOW UP Lucia Fregoso MD FOLLOW UP: H er updated medication list for this problem includes: Adult Aspirin Low Strength 81 Mg Tbdp (Aspirin) ..... 1 daily Lucia Fregoso MD follow up: H er updated medication list for this problem includes: Lipitor 40 Mg Tabs (Atorvastatin calcium) ..... 1 tab daily Lucia Fregoso MD follow up: H er updated medication list for this problem includes: Adult Aspirin Low Strength 81 Mg Tbdp (Aspirin) ..... 1 daily Lucia Fregoso MD follow up Lucia Fregoso MD Hospital follow up: H er updated medication list for this problem includes: Proair Hfa Aers (Albuterol sulfate aers) ..... 2 puffs bid Lucia Fregoso MD Hospital follow up: H er updated medication list for this problem includes: Adult Aspirin Low Strength 81 Mg Tbdp (Aspirin) ..... 1 daily BP today: 110/70 Prior BP: / () N uclear Stress Findings: 1. Normal myocardial perfusion imaging after vasodilator stress with Regadenoson. 2 . Normal left ventricular systolic function with a calculated ejection fraction of (QGS) 65%. 3. No obvious significant scintigraphic evidence of myocardial ischemia or scar. - GC (01/07/2013) Lucia Fregoso MD Date Name Carotid Duplex Bilat eral Carotid Duplex Bilat eral Carotid Duplex Bilat eral Arterial Duplex Bi-L ower EX Low Dose Lung CT Carotid Duplex Bilat eral Carotid Duplex Bilat eral Complete Echo Carotid Duplex Bilat eral Carotid Duplex Bilat eral Carotid Duplex Bilat eral Spirometry HISTORY OF PROCEDURES Procedure Date Procedure Name Provider Procedure Notes S tatus Complex e/m visit add on Lucia Fregoso MD completed Tobacco user + tobac co cessation intervention Lucia Fregoso MD completed EKG Lucia Fregoos MD completed Tobacco user + tobac co cessation intervention Lucia Fregoso MD completed EKG Lucia Fregoso MD completed Counseling LDCT Lucia Fregoso MD comp leted EKG Lucia Fregoso MD completed EKG Lucia Fregoso MD completed SNOMED-CT: 197457138 Smoking Cessation Counseling Lucia Fregoso MD completed SNOMED-CT: 78161030 Physical Exam, Performed: Pulse Exam of Foot Lucia Fregoso MD completed SNOMED-CT: 827746331 714053 Current Medications Documented Lucia Fregoso MD completed FVC / MVV with bronchodilator - 21550 Lucia Fregoso MD completed FRC - 35506 Lucia Fregoso MD complete d SpO2 - 97027 Lucia Fregoso MD complet ed DLCO - 76799 Lucia Fregoso MD complet ed SNOMED-CT: 219576929 661947 Current Medications Documented Lucia Fregoso MD completed EKG Lucia Fregoso MD completed SNOMED-CT: 376773524 850855 Current Medications Documented Lucia Fregoso MD completed SNOMED-CT: 19338618 Physical Exam, Performed: Pulse Exam of Foot Lucia Fregoso MD completed SNOMED-CT: 861763983 303067 Current Medications Documented Lucia Fregoso MD completed SNOMED-CT: 81236177 Physical Exam, Performed: Pulse Exam of Foot Lucia Fregoso MD completed SNOMED-CT: 140429430 946242 Current Medications Documented Lucia Fregoso MD completed SNOMED-CT: 56144963 Physical Exam, Performed: Pulse Exam of Foot Lucia Fregoso MD completed SNOMED-CT: 856074365 805325 Current Medications Documented Lucia Fregoso MD completed SNOMED-CT: 66294532 Physical Exam, Performed: Pulse Exam of Foot Lucia Fregoso MD completed SNOMED-CT: 619497464 970987 Current Medications Documented Lucia Fregoso MD completed SNOMED-CT: 218692924 Smoking Cessation Counseling Lucia Fregoso MD completed SNOMED-CT: 21809653 Physical Exam, Performed: Pulse Exam of Foot Lucia Fregoso MD completed EKG Lucia Fregoso MD completed SNOMED-CT: 573669794 602656 Current Medications Documented Lucia Fregoso MD completed EKG Lucia Fregoso MD completed
--- OUTSIDE RECORDS SUMMARY | 2024-09-25 13:50 | XMS_ITS | Referral Summary ---
Author Organization [facility] Address [facility] [place] [address] Care Team Providers Care Reheater Name Role Phone Earl Mo MD Primary Care Provider Allergies Active Allergy Reactions Criticality Noted Date Comments Atorvastatin Seizures,Other (See comments) High 09/13/2015 seizures Cefaclor Unknown,Rash Medium 11/29/2010 bright red spots leg Redness and welts Erythromycin Nausea only,Rash,Sto mach upset Medium 11/16/2015 Stomach/GI Upset Latex Rash Medium 11/16/2015 Rash Metolazone Unknown 12/21/2015 Oxycodone Stomach upset Low 11/16/2015 Stomach/GI Upset Penicillins Hives,Other (See comments),Rash Medium 11/29/2010 Hives Redness and welts Medications albuterol 2.5 mg /3 mL (0.083 %) nebulizer solution albuterol sulfate 2.5 mg/3 mL (0.083 %) solution for nebulization U 1 ML VIA NEB QID Active albuterol HFA (ProAir HFA) 90 mcg/actuation inhaler ProAir HFA 90 mcg/actuation aerosol inhaler Inhale 2 puffs as needed by inhalation route. 0 Active ALPRAZolam (XANAX) 1 mg tablet alprazolam 1 mg tablet TAKE 1 TABLET BY MOUTH THREE TIMES DAILY 0 Active amitriptyline (ELAVIL) 25 mg tablet daily Active aspirin 81 mg enteric coated tablet daily 8 Active baclofen (LIORESAL) 10 mg tablet baclofen 10 mg tablet TAKE 1 TABLET BY MOUTH TWICE DAILY 6 Active rosuvastatin (CRESTOR) 40 mg tablet Take 40 mg by mouth daily 3 Active HYDROcodone-sebastian taminophen (NORCO) 10-325 mg per tablet hydrocodone 10 mg-acetaminophen 325 mg tablet Active gabapentin (NEURONTIN) 600 mg tablet Take 600 mg by mouth 3 (three) times a day 2 Active dapagliflozin (Farxiga) 5 mg tablet Farxiga 5 mg tablet TAKE 1 TABLET BY MOUTH EVERY DAY 1 Active omeprazole (PriLOSEC) 20 mg capsule omeprazole 20 mg capsule,delayed release TAKE 1 CAPSULE BY MOUTH EVERY DAY Active potassium chloride ER 10 mEq CR tablet potassium chloride ER 10 mEq tablet,extended release Take 2 tablets every day by oral route. 3 Active traZODone (DESYREL) 150 mg tablet Take by mouth nightly as needed 3 Active Active Problems No known active problems Social History Tobacco Use Types Packs/Day Years Used Date Smoking Tobacco: Every Day Cigarettes Passive Smoke Exposure: Current Tobacco Cessation:Ready to Q uit: Not Asked; Counseling Given: Not Answered Comments Unknown Sex and Gender Information Value Date Recorded Sex Assigned at Not on file Legal Sex Female 1:12 PM CDT Gender Identity Female 02/04/2020 12:07 PM CDT Sexual Orientation Not on file Last Filed Vital Signs Vital Sign Reading Time Taken Comments Blood Pressure 132/71 11/16/2015 12:03 PM CDT Pulse 77 11/16/2015 12:03 PM CDT Temperature 36.8 C (98.2 F) 11/16/2015 12:03 PM CDT Respiratory Rate - - Oxygen Saturation 98% 11/16/2015 12:03 PM CDT Inhaled Oxygen Concentration - - Weight 89.4 kg (197 lb 0.1 oz) 10/23/2017 3:53 P M CDT Height 162.6 cm (5' 4 ) 10/23/2017 3:53 PM CDT Body Mass Index 33.82 10/23/2017 3:53 PM CDT Plan of Treatment Not on file Insurance [facility] ADVANTAGE [facility] Address: [id number] [place] [address] [facility] Care Teams Reheater Relationship Specialty Start Date End Date Earl Mo MD PCP - General 10/31/17
--- OUTSIDE RECORDS SUMMARY | 2024-09-25 13:50 | XMS_ITS | Clinical Summary ---
Author Organization [facility] Address [address] [place] [id number] Care Team Providers Care Aeronautical Design Engineer Name Role Phone Earl Mo MD Primary [...] Active Active Problems No known active problems Family History Medical History Relation Name Comments Heart disease Father Family history of cardiac disorder - (Added by TW Conv) Hypertension Father Family history of hypertension - (Added by TW Conv) Arthritis Mother Family history of arthritis - (Added by TW Conv) Heart disease Mother Family history of cardiac disorder - (Added by TW Conv) Hypertension Mother Family history of hypertension - (Added by TW Conv) Relation Name Status Comments Father Mother Social History Tobacco Use Types Packs/Day Years Used Date Smoking Tobacco: Every Day Cigarettes Passive Smoke Exposure: Current Tobacco Cessation:Ready to Q uit: Not Asked; Counseling Given: Not Answered Comments Unknown Sex and Gender Information Value Date Recorded Sex Assigned at Not on file Legal Sex Female 1:12 PM CDT Gender Identity Female 02/04/2020 12:07 PM CDT Sexual Orientation Not on file Obstetrics History Last Filed Vital Signs Vital Sign Reading [...] 10/23/2017 3:53 PM CDT Plan of Treatment Health Maintenance Due Date Last Done Comments Breast Cancer Screening-Mammogram 1957 Colon Cancer Screening-Colonoscopy 1955 Depression Screening 1957 Fall Risk Assessment 1957 Hepatitis C Screening 1957 Hepatitis B Screening 1975 Zoster Vaccine (1 of 2) 2007 Pneumococcal vaccine 65+ (2 of 2 - PCV) 03/16/2016 03/16/2015 Well Visit 65+ 2022 Covid-19 Vaccine (5 - 2023-2 5 season) 2024 05/18/2022, 07/28/2021, 09/30/2020, Additional history exists Osteoporosis Screening-Bone Density Scan 04/27/2026 04/27/2024 DTaP/Tdap/Td Vaccine (2 - Td or Tdap) 03/05/2029 03/05/2019 Influenza Vaccine Completed 04/27/2024, , 04/06/2021, Additional history exists Insurance [facility] MEDICARE ADVANTAGE [facility] Care Teams Aeronautical Design Engineer Relationship Specialty Start Date End Date Earl Mo MD PCP - General 10/31/17
--- OUTSIDE RECORDS SUMMARY | 2024-09-25 13:50 | XMS_ITS | Data Portability ---
Author Organization [place] [facility] [employer], Main Office Address [address] [place] [address] Assessment Encounter Date Assessment Date Assessment LastModified [...] recorded. Lab lipid panel, serum 2024 025 [email or web address] [facility] - Outpatient Lab, [address] [place], [address], 17:32:27 CMP, serum or plasma 2024 025 [facility] - Outpatient Lab, [address] [place], [address], 17:32:27 CBC w/ auto diff 2024 025 [facility], [address] [place], [address], 5 10:47:21 HbA1c (hemoglobin A1c), blood [id number] Outpatient Lab, [address] [place], [address], 5 17:32:27 lipid panel, serum 2023 024 [facility] Outpatient Lab, [address] [place], [address], 4 14:51:15 CMP, serum or plasma 2023 024 [facility] Outpatient Lab, [address] [place], [address], 4 14:51:19 TSH, serum or plasma 2023 024 [facility] Outpatient Lab, [address] [place], [address], 4 15:23:57 T4, free, serum 2023 024 [facility] Outpatient Lab, [address] [place], [address], 4 15:23:26 magnesium, serum or plasma 2023 024 [facility] Outpatient Lab, [address] [place], [address], 4 14:51:22 vitamin B12, serum 2023 024 [facility] Outpatient Lab, [address] [place], [address], 4 15:39:00 HbA1c (hemoglobin A1c), blood [email or web address] [place] [address] Outpatient Lab, [address] [place], [address], 4 15:19:00 microalbumi n, urine 2023 024 [facility] - Outpatient Lab, [address] [place], [address], 4 15:38:45 CBC w/ auto diff 2023 024 [facility] - Outpatient Lab, [address] [place], [address], 4 14:15:57 Referral None recorded. Procedures injection/a spiration joint/bursa (PROC) 2023 [email or web address] In-Office Order, Internal Use Only DO Not Attach Compendium DO Not Attach Compendium, Do Not Delete/merge, [id number] 4 11:05:24 Surgeries None recorded. Imaging None recorded. Medication Orders bupivacaine HCl 0.5 % (5 mg/mL) injection solution 2023 024 [id number], [address] , [place], [place], [id number], 5 14:39:57 Kenalog 10 mg/mL suspension for injection 2023 024 [id number], [address] , [place], [place], [id number], 5 14:40:14 Patient TargetsNo targets recorded. Patient Instructions Encounter Date Encounter Id Patient Instructions Last Modified By Organization Details Last Modified Time 11/04/2023 [id number] Follow-up hypertension, hyperlipidemia, asthma and chronic pain [...] recognize, using context, where substitutions have occurred. [email or web address] Not available 11/04/2023 11:38:25 03/16/2024 [id number] dementia rating scale-2* [email or web address] Not available 03/16/2024 15:25:56 alcohol misuse* [email or web address] Not available 03/16/2024 15:25:55 depression screening* Not available 03/16/2024 15:25:55 Timed Up and Go test (TUG)* [email or web address] Not available 03/16/2024 15:25:56 multi-dimensiona l health assessment questionnaire* [email or web address] Not available 03/16/2024 15:25:56 Personalized [facility] lt Plan and Screening Recommendations Advance Directives [...] I have no recommendations Depression Screening: Negative [email or web address] Not available 03/16/2024 15:19:15 [facility] risk assessment stable. Follow-up hypertension, [...] recognize, using context, where substitutions have occurred. [email or web address] Not available 03/16/2024 15:25:36 05/14/2024 [id number] Laceration of ri ght ear clinically stable. Instructed patient to come back on Saturday05/18/2024 the has sutures removed. Instructed to stay on the clindamycin during that interval time. And let us know if there is any additional bleeding or drainage noted. Keep Appointment: Sat 01:40 PM [facility] [email or web address] Not available 05/14/2024 10:35:29 07/20/2024 [id number] Follow-up essent ial hypertension, hyperlipidemia, type 2 [...] Created: Adelso Mo M.D. 07.20.2024 01:48 PM [email or web address] Not available 07/20/2024 14:48:55 Reason for Referral None Reported. Results Created Date Observation Date Name Description Value Unit Range Abnormal Flag Note LastModifiedBy Organization Detail LastModifiedTime 02/13/20 24 02/13/2024 COVID -19, INFLU ALEXIS A+B, PCR sars-cov-2 [...] clini krystal evalu ating the patie nt. Ceferino durant the Fact Sheet s for healt h care provi ders and patie nts at the [facility] toña: https ://ww w.fda .gov/ media /1363 12/do wnloa d https ://ww w.fda .gov/ media /1363 13/do wnloa d Jose siegel y: Real- Time RT-PC R Not Available [facility] (Lab) [address] [place], [address], 02/13/2024 12:57:06 02/13/20 24 02/13/2024 COVID -19, INFLU ALEXIS A+B, PCR influenza A RNA, RT-PCR NEGATI VE Not Available [facility] (Lab) [address] [place], [address], 02/13/2024 12:57:06 08/15/20 24 02/13/2024 COVID -19, INFLU ALEXIS A+B, PCR influenza B RNA, RT-PCR NEGATI VE abnormal Not Available [facility] (Lab) [address] [place], [address], 02/13/2024 12:57:06 03/18/20 24 03/18/2024 CBC/C OMPLE TE BLD COUNT W/DIF F white blood cells 6.8 x10'3 /uL 4.2-10 .8 Not Available [facility] (Lab) [address] [place], [address], 03/18/2024 14:15:57 03/18/20 24 03/18/2024 CBC/C OMPLE TE BLD COUNT W/DIF F red blood cells 4.18 x10'6 /uL 3.80-5 .20 Not Available [facility] (Lab) [address] [place], [address], 03/18/2024 14:15:57 03/18/20 24 03/18/2024 CBC/C OMPLE TE BLD COUNT W/DIF F hemoglobin 13.2 g/dL 12.0-1 5.6 Not Available [facility] (Lab) [address] [place], [address], 03/18/2024 14:15:57 03/18/20 24 03/18/2024 CBC/C OMPLE TE BLD COUNT W/DIF F hematocrit 40.3 % 35.7-4 5.7 Not Available [facility] (Lab) [address] [place], [address], 03/18/2024 14:15:57 03/18/20 24 03/18/2024 CBC/C OMPLE TE BLD COUNT W/DIF F mean red cell volume 96.4 fL 82.0-9 9.0 Not Available [facility] (Lab) [address] [place], [address], 03/18/2024 14:15:57 03/18/20 24 03/18/2024 CBC/C OMPLE TE BLD COUNT W/DIF F mean red cell hemoglobin 31.6 pg 27.0-3 3.0 Not Available [facility] (Lab) [address] [place], [address], 03/18/2024 14:15:57 03/18/20 24 03/18/2024 CBC/C OMPLE TE BLD COUNT W/DIF F mean RBC HGB concentratio n 32.8 g/dL 31.0-3 6.0 Not Available [facility] (Lab) [address] [place], [address], 03/18/2024 14:15:57 03/18/20 24 03/18/2024 CBC/C OMPLE TE BLD COUNT W/DIF F red cell distribution width 13.5 % 11.8-1 5.5 Not Available [facility] (Lab) [address] [place], [address], 03/18/2024 14:15:57 03/18/20 24 03/18/2024 CBC/C OMPLE TE BLD COUNT W/DIF F platelets 221 x10'3 /uL 150-40 0 Not Available [facility] (Lab) [address] [place], [address], 03/18/2024 14:15:57 03/18/20 24 03/18/2024 CBC/C OMPLE TE BLD COUNT W/DIF F mean platelet volume 9.5 fL 9.0-12 .4 Not Available [facility] (Lab) [address] [place], [address], 03/18/2024 14:15:57 03/18/20 24 03/18/2024 CBC/C OMPLE TE BLD COUNT W/DIF F neutrophils 73.0 % 39.0-7 2.0 high Not Available [facility] (Lab) [address] [place], [address], 03/18/2024 14:15:57 03/18/20 24 03/18/2024 CBC/C OMPLE TE BLD COUNT W/DIF F lymphocytes 18.8 % 16.0-4 7.0 Not Available [facility] (Lab) [address] [place], [address], 03/18/2024 14:15:57 03/18/20 24 03/18/2024 CBC/C OMPLE TE BLD COUNT W/DIF F monocytes 6.9 % 5.0-12 .0 Not Available [facility] (Lab) [address] [place], [address], 03/18/2024 14:15:57 03/18/20 24 03/18/2024 CBC/C OMPLE TE BLD COUNT W/DIF F eosinophils 0.6 % 1.0-7. 0 low Not Available [facility] (Lab) [address] [place], [address], 03/18/2024 14:15:57 03/18/20 24 03/18/2024 CBC/C OMPLE TE BLD COUNT W/DIF F basophils 0.4 % 0.0-2. 0 Not Available [facility] (Lab) [address] [place], [address], 03/18/2024 14:15:57 03/18/20 24 03/18/2024 CBC/C OMPLE TE BLD COUNT W/DIF F immature granulocytes 0.3 % 0.00-0 .50 Not Available [facility] (Lab) [address] [place], [address], 03/18/2024 14:15:57 03/18/20 24 03/18/2024 CBC/C OMPLE TE BLD COUNT W/DIF F neutrophils, absolute count 4.96 x10'3 /uL 1.5-8. 0 Not Available [facility] (Lab) [address] [place], [address], 03/18/2024 14:15:57 03/18/20 24 03/18/2024 CBC/C OMPLE TE BLD COUNT W/DIF F lymphocytes, absolute count 1.28 x10'3 /uL 1.07-3 .43 Not Available [facility] (Lab) [address] [place], [address], 03/18/2024 14:15:57 03/18/20 24 03/18/2024 CBC/C OMPLE TE BLD COUNT W/DIF F monocytes, absolute count 0.47 x10'3 /uL 0.29-0 .99 Not Available [facility] (Lab) [address] [place], [address], 03/18/2024 14:15:57 03/18/20 24 03/18/2024 CBC/C OMPLE TE BLD COUNT W/DIF F eosinophils, absolute count 0.04 x10'3 /uL 0.02-0 .53 Not Available [facility] (Lab) [address] [place], [address], 03/18/2024 14:15:57 03/18/20 24 03/18/2024 CBC/C OMPLE TE BLD COUNT W/DIF F basophils, absolute count 0.03 x10'3 /uL 0.01-0 .08 Not Available [facility] (Lab) [address] [place], [address], 03/18/2024 14:15:57 03/18/20 24 03/18/2024 CBC/C OMPLE TE BLD COUNT W/DIF F immature granulocytes ,absolute 0.02 x10'3 /uL 0.00-0 .05 Not Available [facility] (Lab) [address] [place], [address], 03/18/2024 14:15:57 03/18/20 24 03/18/2024 CBC/C OMPLE TE BLD COUNT W/DIF F nucleated red blood cells 0.0 % -0 Not Available [facility] (Lab) [address] [place], [address], 03/18/2024 14:15:57 03/18/20 24 03/18/2024 CBC/C OMPLE TE BLD COUNT W/DIF F NRBC# 0.00 x10'3 /uL Not Available [facility] (Lab) [address] [place], [address], 03/18/2024 14:15:57 03/18/20 24 03/18/2024 LIPID PANEL cholesterol 142 mg/dL 140-19 9 NIH CAITLYN NSUS RECOM MENDA TION FOR LAWRENCE STERO L: ADULT CHILD LOW RISK: <200 <170 BORDE RLINE : <200- 239 ----- HIGH RISK: >240 >200 Not Available [facility] (Lab) [address] [place], [address], 03/18/2024 14:51:15 03/18/20 24 03/18/2024 LIPID PANEL triglyceride s 103 mg/dL 0-150 NIH CAITLYN NSUS REPOR T RECOM MENDA TION FOR TRIGL YCERI LONNIE: ADULT CHILD LOW RISK: <150 ----- BODER LINE: 150-1 99 ----- HIGH RISK: >200 ----- Not Available [facility] (Lab) [address] [place], [address], 03/18/2024 14:51:15 03/18/20 24 03/18/2024 LIPID PANEL HDL cholesterol 77 mg/dL 40- Not Available [facility] (Lab) [address] [place], [address], 03/18/2024 14:51:15 03/18/20 24 03/18/2024 LIPID PANEL LDL cholesterol, calculated 44 mg/dL 0-130 NIH CAITLYN NSUS REPOR T RECOM MENDA TIONS FOR LDL: ADULT CHILD LOW RISK <130 <110 (OPTI MAL LDL) <100 ----- RAY RLINE : 130-1 59 ----- HIGH RISK: >160 >130 A TRIGL YCERI DE RESUL T >400 INVAL IDATE S THE CALCU LATIO N FOR LDL FRACT IONAT ION - THE LDL RESUL T WILL NOT BE REPOR AMBER. Not Available [facility] (Lab) [address] [place], [address], 03/18/2024 14:51:15 03/18/20 24 03/18/2024 COMPR EHENS RADHA METAB OLIC PANEL sodium 133 mmol/ L 137-14 5 low Not Available [facility] (Lab) [address] [place], [address], 03/18/2024 14:51:19 03/18/20 24 03/18/2024 COMPR EHENS RADHA METAB OLIC PANEL potassium 4.0 mmol/ L 3.5-5. 1 Not Available [facility] (Lab) [address] [place], [address], 03/18/2024 14:51:19 03/18/20 24 03/18/2024 COMPR EHENS RADHA METAB OLIC PANEL chloride 100 mmol/ L 98-107 Not Available [facility] (Lab) [address] [place], [address], 03/18/2024 14:51:19 03/18/20 24 03/18/2024 COMPR EHENS RADHA METAB OLIC PANEL carbon dioxide 30 mmol/ L 22-30 Not Available [facility] (Lab) [address] [place], [address], 03/18/2024 14:51:19 03/18/20 24 03/18/2024 COMPR EHENS RADHA METAB OLIC PANEL anion gap 7.0 mmol/ L 14-22 low Not Available [facility] (Lab) [address] [place], [address], 03/18/2024 14:51:03/18/20 24 03/18/2024 COMPR EHENS RADHA METAB OLIC PANEL glucose 86 mg/dL 70-99 Not Available [facility] (Lab) [address] [place], [address], 03/18/2024 14:51:03/18/20 24 03/18/2024 COMPR EHENS RADHA METAB OLIC PANEL BUN 11 mg/dL 8-19 Not Available [facility] (Lab) [address] [place], [address], 03/18/2024 14:51:03/18/2003/18/2024 COMPR EHENS RADHA METAB OLIC PANEL creatinine 0.66 mg/dL 0.66-1 .25 Not Available [facility] (Lab) [address] [place], [address], 03/18/2024 14:51:03/18/2003/18/2024 COMPR EHENS RADHA METAB OLIC PANEL GFR >60 Refer ence Range : [place] ge GFR Healt hy Adult : >60 [...] or ethni c subgr oups, such as [facility] nics. Outsi de the valid ated larry [...] calcu lator is avail able on the [facility] websi te: https ://mustapha w.kristin magana.o daniel/pr ofess ional s/kdo qi/gf r_cal culat or Not Available [facility] (Lab) [address] [place], [address], 03/18/2024 14:51:19 03/18/20 24 03/18/2024 COMPR EHENS RADHA METAB OLIC PANEL alkaline phosphatase 129 U/L 38-126 high Not Available [facility] (Lab) [address] [place], [address], 03/18/2024 14:51:03/18/20 24 03/18/2024 COMPR EHENS RADHA METAB OLIC PANEL alanine aminotransfe rase 22 U/L 0-35 Not Available [facility] (Lab) [address] [place], [address], 03/18/2024 14:51:19 03/18/20 24 03/18/2024 COMPR EHENS RADHA METAB OLIC PANEL aspartate aminotransfe rase 26 U/L 15-37 Not Available [facility] (Lab) [address] [place], [address], 03/18/2024 14:51:03/18/20 24 03/18/2024 COMPR EHENS RADHA METAB OLIC PANEL bilirubin, total 0.40 mg/dL 0.20-1 .30 Not Available [facility] (Lab) [address] [place], [address], 03/18/2024 14:51:19 03/18/20 24 03/18/2024 COMPR EHENS RADHA METAB OLIC PANEL calcium 9.2 mg/dL 8.4-10 .2 Not Available [facility] (Lab) [address] [place], [address], 03/18/2024 14:51:19 03/18/20 24 03/18/2024 COMPR EHENS RADHA METAB OLIC PANEL total protein 6.4 g/dL 6.3-8. 2 Not Available [facility] (Lab) [address] [place], [address], 03/18/2024 14:51:19 03/18/20 24 03/18/2024 COMPR EHENS RADHA METAB OLIC PANEL albumin 4.0 g/dL 3.0-4. 4 Not Available [facility] (Lab) [address] [place], [address], 03/18/2024 14:51:19 03/18/20 24 03/18/2024 COMPR EHENS RADAH METAB OLIC PANEL globulin 2.4 g/dL 2.6-4. 2 low Not Available [facility] (Lab) [address] [place], [address], 03/18/2024 14:51:19 03/18/20 24 03/18/2024 COMPR EHENS RADHA METAB OLIC PANEL A/G ratio 1.7 ratio 1.0-2. 0 Not Available [facility] (Lab) [address] [place], [address], 03/18/2024 14:51:19 03/18/20 24 03/18/2024 MAGNE SIUM magnesium 2.0 mg/dL 1.6-2. 3 Not Available [facility] (Lab) [address] [place], [address], 03/18/2024 14:51:22 03/18/20 24 03/18/2024 T4 FREE free T4 1.02 NG/dL 0.78-2 .19 Not Available [facility] (Lab) [address] [place], [address], 03/18/2024 15:23:26 03/18/20 24 03/18/2024 TSH thyroid-stim ulating hormone 0.618 uIU/m L 0.465- 4.680 Not Available [facility] (Lab) [address] [place], [address], 03/18/2024 15:23:57 03/18/20 24 03/18/2024 MICRO ALBUM IN RANDO M URINE microalbumin , urine <6.0 mg/L 0.0-16 .6 Not Available [facility] (Lab) [address] [place], [address], 03/18/2024 15:38:45 03/18/20 24 03/18/2024 VITAM IN B12 (SHAWN FRANKY ) vb12 537 pg/mL 239-93 1 Not Available [facility] (Lab) [address] [place], [address], 03/18/2024 15:39:00 03/18/20 24 03/20/2024 HA1C, SEND- OUT TO LABCO RP hemoglobin A1C 5.3 % 4.8-5. 6 . . Predi abete s: 5.7 - 6.4 Diabe toña: >6.4 Glyce hilary contr ol for adult s with diabe toña: <7.0 Perfo [place]med at: [place] [address] Lab Direc tor: Roddy rosenbaum PhD, Phone : [phone] Not Available [facility] (Lab) [address] [place], [address], 03/20/2024 08:22:31 03/27/20 24 03/27/2024 COLOG UARD [...] of 10,00 0 indiv idual s at [place] risk for color ectal cance r who were scree nawaf with both Colog uard and colon oscop y. (Og Chavira et al, N Engl J Med 2014; 370(1 4):12 86-12 97) The isai l value (refe rence range ) for this assay is negat radha. COLOG UARD RE-SC GASTON ADAMSON RECOM MENDA TION: Perio dic color ectal cance r scree vy is an impor tant part of preve ntive healt hcare for asymp tomat ic indiv idual s at [place] ge risk for color ectal cance r. Follo wing a negat radha Colog uard resul t, the Ameri can Cance r Socie ty and U.S. Multi -Soci ety Task Force scree vy guide lines recom mend a Colog uard re-sc gaston adamson inter elaine of 3 years . Refer ences : Ameri can Cance r Socie ty Guide line for Color ectal Cance r Scree vy: https ://ww w.can cer.o rg/ca ncer/ colon -rect al-ca ncer/ detec tion- diagn osis- stagi ng/ac s-rec ommen datio ns.ht ml.; Mane DK, Silvia white CR, Caroline MooreK, Color ectal Cance r Scree vy: Recom menda tions for Physi cians and Patie nts from the U.S. Multi -Soci ety Task Force on Color ectal Cance r Scree vy , Linda linton rolog y 2017; 112:1 016-1 030. TEST DESCR IPTIO N: Stites site algor ithmi c tara sis of stool DNA-b iomar kers with hemog lobin immun oassa y. [...] years or older , who are at [facility] for color ectal cance r (CRC) . Colog uard has been appro tyree for use by the U.S. FDA. The perfo rmanc e of Colog uard was estab lishe d in a cross secti onal study of [facility] adult s aged 50-84 . Colog uard perfo rmanc e in patie nts ages 45 to 49 years was estim ated by kevyn-g lexus tara sis of near- age group s. [...] of 10,00 0 indiv idual s at [facility] risk for color ectal cance r who were scree nawaf with both Colog uard and colon oscop y. (Og Batista al, N Engl J Med 2014; 370(1 [...] wing locat ion: www.e xactl abs.c om/re gabi . Addit ional descr iptio n of the Colog uard test proce ss, warni ngs and preca ution s can be found at www.c ologu angela.c om. Not Available [facility] (Cologuard Orders Only) [address], [place], [address], 04/01/2024 01:50:59 11/04/19 24 11/04/2023 XR, chest , 2 view [facility] [address] [place] [address] Patien t Name: MARCIE BARRY [facility] ion #: [id number] Sex: F : 1955 6 Dictat [...] at 2023 12:43: 33 PM Page 1 [email or web address] [facility] (Imaging) [address] [place], [address], 11/04/2023 13:57:48 11/19/19 24 11/19/2023 US, carot id arter y No observ ation record ed. [email or web address] [place] [address] [facility] [address], [place], [address], 11/19/2023 15:33:57 02/27/20 24 02/27/2024 XR, chest , 2 view [facility] [address] [place] [address] Patien t Name: MARCIE BARRY Access ion #: [id number] Sex: F : 1955 7 Dictat [...] at 2023 11:39: 36 AM Page [address] (Imaging) [address] [place], [address], 02/27/2024 12:44:00 04/27/20 24 04/27/2024 DEXA, axial skele ton [facility] [address] [place] [address] Patien t Name: MARCIE BARRY Access ion #: [id number] Sex: F : 1955 7 Dictat ed By: Monica Doran Attend ing Physic mynor: NEHA MO Orderi ng Physic mynor: NEHA MO Exam Date: [...] e: compar lakshmi by columba peterson ion ([place]) to a young adult popula tion, matche d for sex and ethnic ity (used for postme roberyessenia al women and men >50 years) and classi fied by WHO criter ia. Page 1 [facility] [address] [place] [id number] [phone] Patien t Name: MARCIE BARRY Access ion #: [id number] Sex: F : 1955 7 Dictat ed By: Monica Doran Attend ing Physic mynor: PAN MANUELi ng Physic mynor: NEHA MO Exam Date: [...] at 2023 12:08: 52 PM Page [address] (Imaging) [address] [place], [address], 04/27/2024 13:31:25 08/14/19 25 08/14/2024 LDCT, chest , for lung lazara mcclellan No observ ation record ed. [address], [place], [address], 08/14/2024 15:00:47 Result Notes None recorded. Problems Name Problem SNOMED Code Status Onset Date Resolution Date Notes Provider Name and Address Organization Details Recorded Time Edema of lower extremity 260681717 Active 2016 Not Available [facility] 3 02:33:29 Spinal enthesopa thy 81920914 Active Not Available [facility] 3 02:33:29 Renewal of prescript ion Active 2021 Not Available [facility] 3 02:33:29 Acute bronchiti s 26873728 Active 2022 Not Available [facility] 3 02:33:29 Impacted cerumen of bilateral ears 62306843423 86153 Active 2021 Not Available [facility] 3 02:33:29 Disorder of shoulder 816261197 Active Not Available [facility] 3 02:33:29 Benign essential hypertens ion 1815050 Completed Not Available [facility] 3 02:33:29 Lesion of skin of face 08836553167 6 Active 2021 Not Available [facility] 3 02:33:29 Disorder of trunk 826607049 Active Not Available [facility] 3 02:33:29 Disorder of sacrum 70116024 Active Not Available [facility] 3 02:33:29 Acquired trigger finger 8583048 Active Not Available [facility] 3 02:33:29 Spinal stenosis of lumbar region 71224496 Active Not Available [facility] 3 02:33:29 Insomnia 733688849 Active Not Available [facility] 3 02:33:29 Asthma 433729006 Active 2016 Not Available [facility] 3 02:33:30 Radial styloid tenosynov itis 68544347 Active Not Available [facility] 3 02:33:30 Gastroeso phageal reflux disease 497273131 Active Not Available [facility] 3 02:33:30 Thyroid nodule 287279756 Active Not Available [facility] 3 02:33:30 Wound seroma 743221242 Active Not Available [facility] 3 02:33:30 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 Not Available [facility] 3 02:33:30 Pure hyperchol esterolem ia 354149451 Active Not Available [facility] 3 02:33:30 Chest pain 30216974 Active Not Available [facility] 3 02:33:30 Enthesopa thy of hip region 80592454 Active Not Available [facility] 3 02:33:30 Hyperhidr osis 065273245 Active 2016 Not Available [facility] 3 02:33:30 Lateral epicondyl itis of right humerus 48603444684 9107 Active 2021 Not Available [facility] 3 02:33:30 Vitamin D deficienc y 13957767 Active 2021 Not Available [facility] 3 02:33:31 Depressiv e disorder 86905738 Active Not Available [facility] 3 02:33:31 Chronic pain syndrome 946270811 Active 2016 Not Available [facility] 3 02:33:31 Abnormal renal function 53159415 Active Not Available [facility] 3 02:33:31 Osteoarth ritis 209087478 Active Not Available [facility] 3 02:33:31 Vertigo 373371643 Active Not Available [facility] 3 02:33:31 Bacterial vaginosis 200583268 Completed Not Available [facility] 3 02:33:31 Surgical site infection 378658769 Active Not Available [facility] 3 02:33:31 Type 2 diabetes mellitus 83869024 Active 2016 Not Available [facility] 3 02:33:31 Pain of right knee joint 51656224166 4100 Active 2021 Not Available [facility] 3 02:33:31 Pain of bilateral knee joints 52052048137 4104 Active 2021 Not Available [facility] 3 02:33:32 Cervical radiculop athy 22018904 Active Not Available [facility] 3 02:33:32 Essential hypertens ion 55821950 Active 2021 Not Available [facility] 3 02:33:32 Carotid artery stenosis 81504875 Active Not Available [facility] 3 02:33:32 Essential hypernatr emia 25754281 Completed 202107/05/2021 Not Available [facility] 3 02:33:32 Candidias is of vagina 57455303 Active 2021 Not Available [facility] 3 02:33:32 Hyperglyc emia 84987012 Completed Not Available [facility] 3 02:33:32 Spinal stenosis in cervical region 82424716 Active Not Available [facility] 3 02:33:32 Impaired glucose tolerance 8110580 Completed Not Available [facility] 3 02:33:33 Chronic back pain 202814841 Active 2022 Deepti Aryan, WATER MECHANIC null, [place] [facility] [place] [facility] 3 11:12:23 Anxiety 26131839 Active 2022 Deepti Baeza CMA null, [place] [facility] 3 14:16:21 Pain of right elbow joint 37760077701 783987 Active 2022 Racqueljhonatan Proctor PRIVATE INVESTIGATOR SURVEILLANCE null, [place] [facility] 3 13:53:42 Osteoarth ritis of right knee joint 76841782942 9100 Active 2022 Racquel Hitesh, PRIVATE INVESTIGATOR [employer]ILLANCE null, [place] [facility] 3 13:54:07 Pain in right hip joint 43382931709 9102 Active 2022 Racquel Hitesh, PRIVATE INVESTIGATOR [employer]ILLANCE null, [place] [facility] 3 14:11:27 Bilateral osteoarth ritis of knees 03010378595 9107 Active 2022 ACSE Anaya [address], [address], [place], [address] , [facility] [place] [facility] 3 14:48:49 Obese class I 84989603914 4107 Active 2022 Adelso Mo MD [address], [address], [place], [address] , [facility] [place] [facility] 3 12:33:40 Type 2 diabetes mellitus without complicat ion 662091480 Active 2022 Deepti Baeza CMA null, [place] [facility] [place] [facility] 3 12:51:19 Hemorrhoi ds 77541434 Active 2022 Adelso Mo MD [address], [address], [place], [address] , [facility] [place] [facility] 3 16:51:20 Bronchiti s 71617851 Active 2022 Deepti Baeza CMA null, [place] [facility] 3 16:24:43 Lumbar radiculop athy 105590262 Active 2022 Polly Brown null, [place] [facility] 3 16:23:04 Neuropath y 003926930 Active 2022 Deepti Baeza CMA null, [place] [facility] 3 12:29:10 Acute sinusitis 20668637 Active 2023 Adelso Mo MD [address], [address], [place], [address] , [facility] [place] [facility] 4 10:46:29 Cough 75027537 Active 2023 Polly Brown null, [facility] 4 11:46:17 Rheumatoi d arthritis 80820917 Active 2023 Deepti Baeza CMA null, [facility] [place] [facility] 4 12:17:26 Fever 055841908 Active 2023 Deepti Baeza CMA null, [facility] 4 17:44:07 COVID-19 472003262 Active 2023 Adelso Mo MD [address], [address], [place], [address] , [facility] 4 14:03:47 Senile osteoporo sis 88266470 Active 2023 Polly ruffin, [facility] 4 15:30:45 Laceratio n of right ear region 90906345854 270381 Active 2023 Adelso Mo MD [address] [facility], [address], [place], [address] , [facility] 4 10:35:19 Notes:Some problems listed i n Documents: #[id number], #[id number] could not be added to this patient's chart. Please review these documents and add these problems to the patient's chart manually as needed. Problem Notes None recorded. Procedures Surgical History Date Name Laterality Status Provider Name and Address Organization Details Recorded Time 03/16/20 24 Medicare Wellness CPT Code, subsequent completed Debora Davis RN [facility] 03/16/2024 15:11:46 11/13/19 23 Medicare Wellness CPT Code, subsequent completed Debora Davis RN [place] [employer] 11/12/2022 12:21:29 11/09/19 21 Most Recent Bone Density completed Not Available [facility] 08/29/2022 02:30:55 08/14/19 21 Most Recent Mammogram completed Not Available [facility] 08/29/2022 02:30:56 03/22/20 14 Date of Last Colonoscopy completed Not Available [facility] 08/29/2022 02:30:55 Eye Surgery completed Not Available [facility] 08/29/2022 02:30:59 other completed Not Available [facility] 08/29/2022 02:30:59 Hysterectomy completed Not Available [facility] 08/29/2022 02:30:59 Cataract Surgery completed Not Available [facility] 08/29/2022 02:30:59 Cholecystectomy completed Not Available [facility] 08/29/2022 02:30:59 delivery completed Not Available [facility] 08/29/2022 02:30:59 Orthopedic Procedure completed Not Available [facility] 08/29/2022 02:30:59 Imaging Results Imaging Date Name Status LastModified by Organ ation Details LastModified Time 11/04/2023 XR, chest, [address] (Imaging) [address] [place], [address], 11/04/2023 13:57:48 11/19/2023 US, carotid artery completed [address] [facility] [address], [place], [address], 11/19/2023 15:33:57 02/27/2024 XR, chest, [address] (Imaging) [address] [place], [address], 02/27/2024 12:44:00 04/27/2024 DEXA, axial skeleton completed [address] (Imaging) [address] [place], [address], 04/27/2024 13:31:25 08/14/2024 LDCT, chest, for lung cancer screening completed [address], [place], [address], 08/14/2024 15:00:47 Procedure Notes None recorded. Medical Equipment None Reported. Allergies Allergen ID Allergen Name Allergen Category Reaction Reaction Severity Criticality Documentation Date Start Date Code Code System Note Provider Name and Address Organization Details Recorded Time 3363 Product containin g penicilli n (product) medicatio n rash Not available Not available 08/29/2022 85677 8001 SNOMED Not Available [facility] 3 02:38:09 3364 Richard-Tab medicatio n nausea Not available Not available 08/29/202234979 9 RxNorm Not Available [facility] 3 02:38:10 3366 Ceclor medicatio n rash Not available Not available 08/29/202236834 5 RxNorm Not Available [facility] 3 02:38:10 3368 oxybutyni n medicatio n other Not available Not available 08/29/2022 06872 RxNorm drymo uth Not Available [facility] 3 02:38:10 3370 Norvasc medicatio n other Not available Not available 08/29/2022 28778 RxNorm edema Not Available [facility] 3 02:38:10 3372 codeine medicatio n nausea Not available Not available 08/29/2022 2670 RxNorm Not Available [facility] 3 02:38:10 3374 Product containin g angiotens in-conver ting enzyme inhibitor (product) medicatio n cough Not available Not available 08/29/2022 52419 009 SNOMED Not Available [facility] 3 02:38:10 Medications Name Sig Start Date [...] ONE PATCH TOPICALL Y ONCE A WEEK 04/06 completed Not Available Not Available Not [...] day 03/26 completed Internal note: MARCIE [address] [facility] [address] 8 03/04/2018 ALPRAZOL AM 1MG 90/30 Medicare [facility]/ [place] MD ROMAN CATHOLIC MARCIE [address] [facility] [address] 8 8 Hydrocod one-Acet aminophn 10-325 100/20 Medicare [facility]/ [place] MD ROMAN CATHOLIC MARCIE [address] [facility] [address] 8 02/05/2018 ALPRAZOL AM 1MG 90/30 Medicare [facility] / [place] MD ROMAN CATHOLIC MARCIE [address] [facility] [address] 8 8 HYDROCOD ONE BIT/ACET BUSCH 10MG-325 MG 100/20 Medicare [facility] [place] MD [address] [facility] [address] 8 01/03/2018 ALPRAZOL AM 1MG 90/30 Medicare [facility] / [place] MD [address] [place] [address] 8 8 HYDROCOD ONE BIT/ACET BUSCH 10MG-325 MG 100/20 Medicare [facility] [place] MD [address] [facility] [address] [facility] [address] 8 12/05/2017 ALPRAZOL AM 1MG 90/30 Medicare [facility] / [place] MD [address] [place] [address] 8 8 HYDROCOD ONE BIT/ACET BUSCH 10MG-325 MG 100/20 Medicare [facility]/ [place] MD [address] [facility] [address] 8 11/05/2017 ALPRAZOL AM 1MG 90/30 Medicare [facility] / [place] MD [address] [facility] [address] 8 8 Hydrocod one-Acet aminophn 10-325 100/20 Medicare [facility]: No new prescrip tons before: [...] n for injection in office 07/20 completed [facility]: [phone] 4-20 Not Available Not Available Not Available Flagyl [...] TAKE 1 TABLET BY MOUTH EVERY DAY 2024 active Not Available Not Available Not Avai lable neomycin- polymyxin -dexameth 3.5 mg/mL-10, 000 unit/mL-0 .1% eye drops PLACE 1 DROP INTO BOTH EYES FOUR TIMES DAILY FOR 1 WEEK active Not Available Not Available No t Available Cipro 500 mg tablet Take 1 tablet twice a day by oral route for 10 days. 06/03 completed Not Available Not Available Not Available Proscar 5 mg tablet Saturday, y, 08/06 completed Not Available Not Available Not [...] office by the doctor 03/15 completed NDC: [id number] 001 Not Available Not Available Not Available [...] by the provider 11/08 completed ND: [id number] 12-15 Not Available Not Available Not Available Synvisc-O [...] mg by injectio n route. 11/12 completed [facility] 395[address]-59 4- Not Available Not Available Not Available [...] TAKE 1 CAPSULE BY MOUTH EVERY DAY 2024 active Not Available Not Available Not Avai lable Invokana 100 mg tablet TAKE 1 TABLET [...] Not Available Not Available No t Available Lagevrio 200 mg capsule (EUA) TAKE 4 CAPSULES [...] Updated DateTime 4 160.02 cm 28.9 kg/m2 24799.5 6 g 83 /min 97.9 [degF] 94 % 94 % 118 mm[Hg] 72 mm[Hg] Abena Goetz Jenna [facility] [employer] [facility] 4 11:08:32 Date Recorded Body height Body mass index (BMI) Body weight Provider Name and Address Organization Details Last Updated DateTime 11/08/2023 160.02 cm 28.3 kg/m2 53316.78 g Nichole Block [facility] [employer] [facility] 11/08/2023 13:53:24 Date Recorded Body height Body weight Heart rate Body temperature Oxygen saturation Oxygen saturation in Arterial blood by Pulse oximetry Systolic blood pressure Diastolic blood pressure Provider Name and Address Organization Details Last Updated DateTime 4 160.02 cm 39983.1 5 g 87 /min 97.3 [degF] 95 % 95 % 122 mm[Hg] 74 mm[Hg] Abena Goetz Jenna [facility] [employer] [facility] 4 15:03:18 Date Recorded Pain severity - 0-10 verbal numeric rating [Score] - Reported Provider Name and Address Organization Details Last Updated DateTime 03/16/2024 7 Debora Davis RN [facility] [employer] [facility] 03/16/2024 15:12:01 Date Recorded Body height Body mass index (BMI) Body weight Body temperature Systolic blood pressure Diastolic blood pressure Provider Name and Address Organization Details Last Updated DateTime 4 160.02 cm 29.9 kg/m2 68819.1 1 g 97 [degF] 120 mm[Hg] 66 mm[Hg] GARETH Kwong [facility] [employer] [facility] 4 10:22:39 Date Recorded Body height Body mass index (BMI) Body weight Heart rate Body temperature Oxygen saturation Oxygen saturation in Arterial blood by Pulse oximetry Systolic blood pressure Diastolic blood pressure Provider Name and Address Organization Details Last Updated DateTime 5 160.02 cm 29.8 kg/m2 79333.5 2 g 78 /min 97 [degF] 92 % 92 % 118 mm[Hg] 70 mm[Hg] Kelli Garcia [facility] [employer] [facility] 5 14:39:35 Social History Question Answer Notes LastModified by Organization Details LastModified Time Tobacco Smoking Status Current Every Day Smoker Not Available [facility] 08/29/2022 02:25:58 Do You Have An Advance Directive? No Has Info Previously At Home [email or web address] Information not available 03/16/2024 What Is Your Level Of Alcohol Consumption? None Information not available 09/10/2023 Are You Blind Or Do You Have Difficulty Seeing? No [email or web address] Information not available 11/12/2022 What Is Your Level Of Caffeine Consumption? Moderate MIGRATION.[id number] Information not available 08/29/2022 How Much Tobacco Do You Chew? None MIGRATION.030 [id number] Information not available 08/29/2022 In The 14 Days Before Symptom Onset, Have You Had Close Contact With A Laboratory-conf irmed COVID-19 While That Case Was Ill? No MIGRATION.[id number] Information not available 08/29/2022 In The 14 Days Before Symptom Onset, Have You Had Close Contact With A Person Who Is Under Investigation For COVID-19 While That Person Was Ill? No MIGRATION.[id number] Information not available 08/29/2022 Are You Deaf Or Do You Have Serious Difficulty Hearing? No [email or web address] Information not available 11/12/2022 What Type Of Diet Are You Following? REGULAR MIGRATION.0301 [id number] Information not available 08/29/2022 Which Illicit Or Recreational Drugs Have You Used? No MIGRATION.0301 [id number] Information not available 08/29/2022 Do You Or Have You Ever Used E-cigarettes Or Vape? Never Used Electronic Cigarettes MIGRATION.0301 045784 Information not available 08/29/2022 Have There Been Any Changes To Your Family Or Social Situation? No [email or web address] Information not available 11/12/2022 What Is The Fluoride Status Of Your Home? Fluoridated MIGRATION.0301 290211 Information not available 08/29/2022 Are There Any Guns Present In Your Home? No MIGRATION.0301 603795 Information not available 08/29/2022 Do You Use Insect Repellent Routinely? No [email or web address] Information not available 11/12/2022 [facility] MIGR[facility].0301 [id number] Information not available 08/29/2022 Are You Able To Care For Yourself? Yes [email or web address] Information not available 11/12/2022 Are You Blind Or Do Yo Have Difficulty Seeing? No [email or web address] Information not available 11/12/2022 Are You Deaf Or Do You Have Serious Difficulty Hearing? No [email or web address] Information not available 11/12/2022 Live Alone Of With Others? Alone [email or web address] Information not available 11/12/2022 What Was The Date Of Your Most Recent Tobacco Screening? 03/16/2024 [email or web address] Information not available 03/16/2024 Do You Have Any Pets? No MIGRATION.0301 297208 Information not available 08/29/2022 What Is Your Relationship Status? MIGRATION.0301 121595 Information not available 08/29/2022 Do You Use Your Seat Belt Or Car Seat Routinely? Yes MIGRATION.0301 523830 Information not available 08/29/2022 Do You Have Smoke And Carbon Monoxide Detectors In Your Home? Yes MIGRATION.0301 706778 Information not available 08/29/2022 Are You Passively Exposed To Smoke? Yes [email or web address] Information not available 11/12/2022 Do You Or Have You Ever Used Smokeless Tobacco? Never Used Smokeless Tobacco MIGRATION.0301 817635 Information not available 08/29/2022 Are There Any Smokers In Your House? Yes [email or web address] Information not available 11/12/2022 How Much Tobacco Do You Smoke? 1 PPD MIGRATION.0301 477408 Information not available 08/29/2022 Do You Feel Stressed (tense, Restless, Nervous, Or Anxious, Or Unable To Sleep At Night)? [id number] MIGRATION.0301 955905 Information not available 08/29/2022 Do You Use Sunscreen Routinely? Yes MIGRATION.0301 609622 Information not available 08/29/2022 How Many Years Have You Smoked Tobacco? 50 Information not available 09/10/2023 Have You Recently Traveled Abroad? No MIGRATION.030 717784 Information not available 08/29/2022 Sex: Unknown Functional Status Question Answer Note LastModified by Organizat ion Details LastModified Time Do you have difficulty walking or climbing stairs? Yes uses a cane [email or web address] Information not available 03/16/2024 Do you have transportation difficulties? No [email or web address] Information not available 11/12/2022 Are you able to walk? YESASSIST [email or web address] Information not available 11/12/2022 Do you have difficulty doing errands alone? Yes [email or web address] Information not available 11/12/2022 Are you able to care for yourself? Yes [email or web address] Information n ot available 11/12/2022 Do you have difficulty dressing or bathing? Yes [email or web address] Information not available 03/16/2024 What is your exercise level? Occasional MIGRATION.728808 4052 Information not available 08/29/2022 Mental Status Question Answer Note LastModified by Organization D etails LastModified Time Do you have difficulty concentrating, remembering or making decisions? No [email or web address] Information no t available 11/12/2022 Family History Relationship Description Onset Age of this Age Resolved Age Notes LastModified by Organization Details LastModified Time Mother Heart disease MIGRATION.614 [id number] Not available 08/29/2022 02:31:00 Mother Carotid artery stenosis MIGRATION.968 [id number] Not available 08/29/2022 02:31:00 Father Heart disease MIGRATION.960 8432956 Not available 08/29/2022 02:31:00 Brother Heart disease Mother 73 deceas ed HTN and Circul atory proble ms and post op from caroti d artery surger y Father deceas ed at 48 from [facility] Four brothe rs none living good health and one of mening itis and other from compli cation s of liver diseas e. One sister 1 good health . [email or web address] Not available 03/16/2024 15:17:17 Brother Family history of stroke [email or web address] Not available 2023 14:39:14 Brother Diabetes mellitus MIGRATION.406 [id number] Not available 08/29/2022 02:31:00 Brother Family history of malignant neoplasm Unknow n type very rare form MIGRATION.168 [id number] Not available 08/29/2022 02:31:00 Brother Cerebrovascu lar accident MIGRATION.084 [id number] Not available 08/29/2022 02:31:00 Father Hypertensive disorder [email or web address] Not available 2023 14:39:00 Unspecified Relation Neuropathy MIGRATION.620 [id number] Not available 08/29/2022 02:31:00 Sister Diabetes mellitus [email or web address] Not available 2023 14:38:53 Mother Hypertensive disorder [email or web address] Not available 2023 14:39:03 Notes:Mother 73 HTN and Circulatory problems and post op from carotid artery surgery Father at 48 from [facility] Four brothers two living good health and one of meningitis and other from complications of liver disease. One sister 1 good health. Medical History Condition Response NERVE DISEASE N BLINDNESS N RHEUMATIC FEVER N KIDNEY STONES N BLADDER PROBLEMS N MRSA N OTHER # 1 N POLIO N LUNG DISEASE/DISORDER N HISTORY OF DRUG ABUSE N COPD Y RADIATION / CHEMOTHERAPY N Other # 2 N BLOOD DISEASES N [...] GLAUCOMA N FOOT PROBLEM N DIVERTICULITIS N SLEEP APNEA N CHICKENPOX N INFECTIOUS DISEASE N PROSTATE N HEART ARRHYTHMIA N INSOMNIA N HIGH CHOLESTEROL / HYPERLIPIDEMIA Y EYE PROBLEMS N HYPERTHYROIDISM N EDEMA N CHRONIC PAIN SYNDROME N HYPOTHYROIDISM N CONSTIPATION N CAROTID BLOCKAGE Y BACK / NECK PROBLEMS Y HAVE YOU BEEN HOSPITALIZED OR SEEN IN [facility] IN THE PAST YEAR ? N ATHEROSCLEROSIS [...] (COVID-19) vaccine, UNSPECIFIED 1 completed Not Available [facility] 08/29/2022 02:38:01 SARS-COV-2 (COVID-19) vaccine, UNSPECIFIED 1 completed Not Available [facility] 08/29/2022 02:38:01 COVID-19, mRNA, LNP-S, PF, 30 mcg/0.3 mL dose 1 completed Not Available [facility] 08/29/2022 02:38:01 Influenza, split virus, quadrivalent, PF 1 completed Not Available [facility] 08/29/2022 02:38:02 Influenza, split virus, quadrivalent, preservative 9 completed Not Available [facility] 08/29/2022 02:38:02 Tdap 9 completed Not Available [facility] 08/29/2022 02:38:02 Influenza, split virus, quadrivalent, preservative 7 completed Not Available [facility] 08/29/2022 02:38:02 Influenza, split virus, quadrivalent, PF 0 completed Not Available [facility] 08/29/2022 02:38:02 Influenza, split virus, quadrivalent, PF 8 completed Not Available [facility] 08/29/2022 02:38:03 Influenza, split virus, quadrivalent, PF 6 completed Not Available [facility] 08/29/2022 02:38:03 Influenza, split virus, trivalent, preservative 3 completed Not Available [facility] 08/29/2022 02:38:03 Influenza, high-dose, quadrivalent, PF 3 completed Kelli ruffin [facility] 03/28/2023 16:41:26 Pneumococcal conjugate PCV20, polysaccharide [id number] conjugate, adjuvant, PF 3 completed Kelli Choa null [facility] 12/13/2022 16:48:50 Influenza, high-dose, trivalent, PF 4 completed Kelli ruffin, [facility] 04/27/2024 11:54:15 Past Encounters Encounter ID Performer Location Encounter Start Date Encounter Closed Date Diagnosis/Indication Diagnosis SNOMED-CT Code Diagnosis ICD10 Code Diagnosis Note [id number] _DARSHAN_Suzy IGRATION_ DEFAULT_1 _1 , 09/12/2020 00:00:00 09/12/2020 18:47:09 [id number] [facility] [place] [address] [place] [address] 10/19/2020 00:00:00 10/19/2020 15:40:50 [id number] [facility] [address], [address] [place] [address] 11/02/2020 00:00:00 11/02/2020 15:14:25 [id number] [facility] [place] [address] [place] [address] 11/14/2020 00:00:00 11/14/2020 15:22:18 [id number] [facility] [place] [address] [place] [address] 12/22/2020 00:00:00 12/22/2020 15:59:59 [id number] [facility] [place] [address] [place] [address] 12/29/2020 00:00:00 12/29/2020 14:46:43 [id number] [facility] [place] [address] [place] [address] 01/05/2021 00:00:00 01/05/2021 14:40:58 [id number] [facility] [place] [address] [place] [address] 03/14/2021 00:00:00 03/14/2021 14:21:44 [id number] [facility] [address] [address] 03/15/2021 00:00:00 03/15/2021 14:58:04 [id number] [facility] [address] [address] 07/05/2021 00:00:00 07/05/2021 15:42:05 [id number] [facility] [address] [address] 11/08/2021 00:00:00 11/08/2021 15:56:58 [id number] [facility] [place] [address] [place] [address] 11/20/2021 00:00:00 11/20/2021 16:56:43 [id number] [facility] [address] [address] 03/14/2022 00:00:00 03/14/2022 11:24:02 [id number] [facility] [place] [address] [place] [address] 05/01/2022 00:00:00 05/01/2022 16:05:44 [id number] [facility] [place] [address] [place] [address] 05/14/2022 00:00:00 05/14/2022 12:13:12 [id number] [facility] [place] [address] [place] [address] 06/19/2022 00:00:00 06/19/2022 14:32:46 [id number] [facility] [address] [address] 07/09/2022 00:00:00 07/09/2022 12:10:23 [id number] [facility] [place] [address] [place] [address] 07/31/2022 00:00:00 07/31/2022 14:57:47 [id number] CASE Anaya [facility] [place] [address] [place] [address] 11/01/2022 13:48:54 11/01/2022 15:18:36 Edema of lower extremity 961689544 R60.0 Pain of bi lateral knee joints 9946678048 52967 M25.561 M25.562 Osteoarthritis 666659117 M19.90 Pain of ri ght elbow joint 6936694052 9248691 M25.521 Lateral ep icondylitis of right humerus 9950964443 35597 M77.11 Pain in ri ght hip joint 8319698227 41286 M25.551 Bilateral osteoarthritis of knees 9402702197 06878 M17.0 [id number] Adelso Mo MD [facility] [address] [address] 11/12/2022 11:56:27 11/12/2022 12:46:08 Adult health examination 209215812 Z00.00 Screening for disorder 356207368 Z13.9 Essential hypertension 10069690 I10 Pure hypercholesterolemia 070449565 E78.00 Type 2 kya betes mellitus 77126550 E11.9 Osteoarthritis 390387965 M19.90 Obese class I 4179960850 30550 E66.9 Long-term current use of opiate analgesic drug 4060380961 77799 Z79.186 [id number] Adelso Mo MD [facility] [address] [address] 03/18/2023 11:54:24 03/18/2023 16:02:35 Chronic pain syndrome 381628148 G89.4 Essential hypertension 88598073 I10 Gastroesop hageal reflux disease 054778083 K21.9 Pure hypercholesterolemia 125148513 E78.00 Type 2 kya betes mellitus without complication 715934619 E11.9 [id number] Adelso Mo MD [facility] [address] [address] 07/08/2023 14:20:43 07/08/2023 14:56:28 Essential hypertension 61568163 I10 Pure hypercholesterolemia 437730108 E78.00 Type 2 kya betes mellitus without complication 971804163 E11.9 Obese class I [id number] 92404 E66.9 [id number] CASE Anaya [facility] [place] [address] [place] [address] 09/10/2023 14:14:31 09/10/2023 15:14:46 Bilateral osteoarthritis of knees 8587027035 38867 M17.0 Pain of bi lateral knee joints 2556066592 30119 M25.561 M25.593 [id number] Adelso Mo MD [facility] [address] [address] 11/04/2023 10:53:34 11/04/2023 11:47:31 Essential hypertension 46108614 I10 Pure hypercholesterolemia 875099226 E78.00 Asthma 885711135 J45.90 9 Chronic pain syndrome 37 6636321 G89.4 [id number] CASE Anaya [facility] [place] [address] [place] [address] 11/08/2023 13:46:55 11/08/2023 15:28:54 Bilateral osteoarthritis of knees 6685154062 09200 M17.0 Pain of ri ght knee joint 7551100838 14010 M25.147 [id number] Adelso Mo MD [facility] [address] [address] 03/16/2024 14:47:58 03/16/2024 15:33:28 Adult health examination 868285075 Z00.00 Screening for disorder 832736263 Z13.9 Essential hypertension 82650774 I10 Pure hypercholesterolemia 111962076 E78.00 Type 2 kya betes mellitus without complication 588625721 E11.9 Gastroesop hageal reflux disease 023163637 K21.9 Asthma 031727571 J45.90 9 [id number] Adelso Mo MD [facility] Internal [address], [place] [address] 05/14/2024 10:10:25 05/14/2024 10:48:33 Laceration of right ear region 0986847227 2683463 S01.311A [id number] Adelso Mo MD [facility] Med [facility] [address] [address] 07/20/2024 14:27:25 07/20/2024 15:02:50 Essential hypertension 85622554 I10 Pure hypercholesterolemia 143744300 E78.00 Type 2 kya betes mellitus without complication 777449657 E11.9 Chronic pain syndrome 37 7544399 G89.4 Health Concerns Section Related Observation LastModified by Organization Detai ls LastModified Time None Recorded Concern Status LastModified by Organization Details LastModified Time None Recorded Advance Directives Directive N: has info previously at [facility] Payers Encounter Date Sequence Insurance Name Policy Number Policy Mann Covered Member ID Mann Member ID Guarantor Name 11/04/2023 2 [facility] (MEDICARE REPLACEMENT/AD VANTAGE - PPO) [id number] Marcie Rebollar Confucianist [id number] Marcie Rebollar Confucianist 11/04/2023 1 [facility] ON OR AFTER 12/29/20 (MEDICAID REPLACEMENT - HMO) Marcie Rebollar Confucianist [id number] Marcie Rebollar Confucianist 11/08/2023 2 [facility] (MEDICARE REPLACEMENT/AD VANTAGE - PPO) [id number] Marcie Rebollar Confucianist [id number] Marcie Rebollar Confucianist 11/08/2023 1 [facility] ON OR AFTER 12/29/20 (MEDICAID REPLACEMENT - HMO) Marcie Rebollar Confucianist [id number] Marcie Rebollar Confucianist 03/16/2024 2 [facility] (MEDICARE REPLACEMENT/AD VANTAGE - PPO) [id number] Marcie Rebollar Confucianist [id number] Marcie Rebollar Confucianist 03/16/2024 1 [facility] ON OR AFTER 12/29/20 (MEDICAID REPLACEMENT - HMO) Marcie Rebollar Confucianist [id number] Marcie Rebollar Confucianist 05/14/2024 2 [facility] (MEDICARE REPLACEMENT/AD VANTAGE - PPO) [id number] Marcie Rebollar Confucianist [id number] Marcie Rebollar Confucianist 05/14/2024 1 [facility] ON OR AFTER 12/29/20 (MEDICAID REPLACEMENT - HMO) Marcie Rebollar Confucianist [id number] Marcie Rebollar Confucianist 07/20/2024 2 [facility] (MEDICARE REPLACEMENT/AD VANTAGE - PPO) [id number] Marcie Rebollar Confucianist [id number] Marcie Rebollar Confucianist 07/20/2024 1 [facility] ON OR AFTER 12/29/20 (MEDICAID REPLACEMENT - HMO) Marcie Rebollar Confucianist [id number] Marcie Rebollar Confucianist Notes Date Note Type Note Provider Name and Address Organization Details Recorded Time 11/04/2023 text/html Patient Name: Angelica BarryDate Of Service: Saturday ( 11.04.2023 ): 1955 [...] with wheezing Medication Reconciliation: from medication list. Ykeoscscaag33/01/2022: Low-dose CT scan of the chest demonstrated [...] or has seen in the past a Focus Puller: No .Pain - Enjoyment of Life - [...] CoughOxybutynin Dry MouthNorvasc EdemaLipitor Seizures Vaccination and Lmvtovwpefhk3022-41 Mltkiqejy9931-92 Prevnar 20 Ac6958-99 Covid Booster Lzpyix6353-06 Covid Pfizer Surgical Krleyvg6016-61 Cervical Pmyqjdwgeth6916-14 Pain Gczm4086-41 Lap Zupxdoiqppwetke5790-67 Right RPY0465-18 Right Kvms9124-69 Vaginal Dennjbfuqkrz3137-52 Npoaedzrmniwt5995-83 Eye Surgery Preventative Qngbhzx2008/15/2023 ALBUMIN 4.6 G/DL H007/30/2023 JATXKPWNOQRJR23/17/2024 LDCT 5007/09/2023 HAIC 5.1 %06/11/2023 MAMMOGRAM / MICRO ALBUMIN <6.0 MG/L N011/08/2020 DEXA SCAN03/10/2014 COLONOSCOPY (10 YEARS) 03/10/2024 Social HistorySmokes one pack daily for 25 years. Drinks socially. Works as a cashier parking lot. Family HistoryMother 73 HTN and Circulatory problems and post op from carotid artery surgeryFather at 48 from [facility] brothers two living good health and one of meningitis and other from complications of liver disease. One sister 1 good health. Adelso Mo MD [address], [facility] [address], [place], [address], [facility] [employer] [facility] [employer] 11/04/2023 11:38:47 11/08/2023 text/html patient returns with [...] the right knee than left with near bmkb-we-jijv changes in the medial compartment on the right knee. She would like to try a shot of cortisone today she states her pain is about a 6 on a scale 1-10. Denies any new symptoms no new trauma or injury to the right knee no erythema effusion or signs of infection. CASE Anaya [address], [facility] [address], [place], [address], [facility] [employer] [facility] [employer] 11/08/2023 14:08:00 03/16/2024 text/html Patient Name: Angelica [...] Systemic Symptoms:none Medication Reconciliation: from medication list. Mzkpghwfarr84/16/2023: Arterial Doppler demonstrates no significant arterial obstruction [...] lesions. The last HAIC was DCCT HAIC: 5.1 Calculated MB mg%. CGM: No. [...] CoughOxybutynin Dry MouthNorvasc EdemaLipitor Seizures Vaccination and Yftbnkgnyhzg5717-21 Fkabtqoda7217-00 Prevnar 20 Fn2656-25 Covid Booster Nafail3745-86 Covid Pfizer Surgical Ozkwqlv9791-44 Cervical Giduddstzba3801-09 Pain Fycz2153-29 Lap Vfgnysclfvhpqgp4228-58 Right QWX7933-13 Right Ionp3488-53 Vaginal Lltrpmblgycc2449-27 Qzwmosmpgennk0763-31 Eye Surgery Preventative Testing( ) 01/28/2024 Optometry( ) 08/15/2023 Albumin 4.6 G/DL H( ) 07/30/2023 Ophthalmology( ) 07/17/2023 LDCT 07/17/2024( ) 07/09/2023 HAIC 5.1 %( ) 06/11/2023 Mammogram 06/11/2025( ) 03/18/2023 Micro Albumin <6.0 MG/L N(X) 11/08/2020 DEXA Scan 11/08/2022(X) 03/10/2014 Colonoscopy (10 Years) 03/10/2024 Social HistorySmokes one pack daily for 25 years. Drinks socially. Works as a cashier parking lot. Family HistoryMother 73 HTN and Circulatory problems and post op from carotid artery surgeryFather at 48 [facility] brothers none living good health and [...] CoughOxybutynin Dry MouthNorvasc EdemaLipitor Seizures Vaccination and Akhbqqgnhizd0704-11 Bdttmgjyk0742-73 Prevnar 20 Uc5138-73 Covid Booster Vviock5535-31 Covid Pfizer Surgical Sedzyme0070-14 Cervical Iqapbaetpxr4558-49 Pain Hbyx2581-99 Lap Hubvulojsgxmxzv0794-51 Right TPU3434-31 Right Pbru5358-98 Vaginal Dlrlqckvcpta0152-89 Npoukheyrescr6762-05 Eye Surgery Preventative Testing( ) 01/28/2024 Optometry( ) 08/15/2023 Albumin 4.6 G/DL H( ) 07/30/2023 Ophthalmology( ) 07/17/2023 LDCT 07/17/2024( ) 07/09/2023 HAIC 5.1 %( ) 06/11/2023 Mammogram 06/11/2025( ) 03/18/2023 Micro Albumin <6.0 MG/L N(X) 11/08/2020 DEXA Scan 11/08/2022(X) 03/10/2014 Colonoscopy (10 Years) 03/10/2024 Social HistorySmokes one pack daily for 25 years. Drinks socially. Works as a cashier parking lot. Family HistoryMother 73 HTN and Circulatory problems and post op from carotid artery surgeryFather at 48 [facility] brothers none living good health and [...] Date: 07/09/2023HA1C 5.1 4.0-6.0 %LIPID PANEL Date: 07/09/2023HOLESTEROL 129 140-199 MG/DLTRIGLYCERIDES 101 0-150 MG/DLHDL CHOLESTEROL 61 40- MG/DLLDL CHOLESTEROL, CALCULATED 48 0-130 MG/DL Adelso Mo MD [address] [facility] [address], [place], [address], [place] [employer] [facility] 03/16/2024 15:26:05 05/14/2024 text/html Patient Name: Angelica Rebollar ConfucianistDate Of Service: May ( 05.14.2024 ): 1955 [...] MG CAPSULE Qd Adelso Mo MD [address] [facility] [address], [place], [address], [facility] [employer] 05/14/2024 10:46:33 07/20/2024 text/html [facility]: [facility]: Saturday ( 07.20.2024 ): 1955 [...] and Systemic Symptoms:none Medication Reconciliation: by patient. Ozoqbioihcx31/20/2023: Carotid ultrasound 50-69% stenosis of the left [...] or has seen in the past a Focus Puller: Yes .Pain - Enjoyment of Life - [...] ) 2024-03 TB TEST( ) 2020-09 COVID PFIZER( ) 2022-10 PREVNAR 20 ED(X) 2021-03 COVID BOOSTER PFIZER Surgical Zbyzudx8983-91 Cervical Ozyjywwpdza0611-40 Pain Bzmu8743-76 Lap Snyrjbuzdavxxlc6816-11 Right OTS5877-68 Right Wvqb7037-45 Vaginal Rbaisluikhmc8739-33 Kinrynyorafgq2755-54 Eye Surgery Preventative Testing( ) 04/27/2024 DEXA Scan (Normal)( ) 03/27/2024 Cologuard 03/27/2027( ) 03/18/2024 Albumin 4.0 G/DL( ) 03/18/2024 Micro Albumin <6.0 MG/L( ) 03/18/2024 HAIC 5.3 %( ) 01/28/2024 Optometry( ) 07/30/2023 Ophthalmology(X) 07/17/2023 LDCT 07/17/2024( ) 06/11/2023 Mammogram 06/11/2025 Social HistorySmokes one pack daily for 25 years. Drinks socially. Works as a cashier parking lot. Family HistoryMother 73 HTN and Circulatory problems and post op from carotid artery surgeryFather at 48 from [facility] brothers two living good health and one of meningitis and other from complications of liver disease. One sister 1 good health. TEST RESULT RANGE UNITSLIPID PANEL Date: 4CHOLESTEROL 142 140-199 MG/DLTRIGLYCERIDES 103 0-150 MG/DLHDL CHOLESTEROL [...] 5.3 4.8-5.6 % Adelso Mo MD [address] [facility], [facility] [address], [place], [address], [facility] [employer] [facility] 07/20/2024 14:49:13 OBGyn Episode No OBEpisode recorded.
--- OUTSIDE RECORDS SUMMARY | 2024-09-25 13:50 | XMS_ITS | Continuity of Care Document ---
Author Organization [facility] Address [address] [place] [address] Phone Care Team Providers Care Daycare Assistant Name Role Phone [facility] [employer] Unavailable [...] Diagnoses Date Provider Providers Copied on Encounter [facility], [address] [place] [address] [address], [place], [place], [id number], [place] tel:[phone] [facility] No Information [address] [facility] [address] [facility], [address], [place], [place], [address], [place]. tel:[phone] Referring Provider: José Miguel joseph, [address] [place] [address] [address], [place], [address]. tel:[phone] sulting Provider: Magdy Mott, [address] [place] [address], [place], [address]. tel:[phone] [facility], [address] [place] [address] [address], [place], [place], [address], [place] tel:[phone] [facility] No Information 9 [facility] [employer]. [address] [facility], [address], [place], [place], [address], [place]. tel:[phone] Referring Provider: José Miguel joseph, [address] [facility] [address], [place], [address]. tel:[phone] [facility], [address], [place], [place], [address], [place] tel:[phone] [facility] No Information 9 Carol Val[address]. [address] [facility] [address], [place], [address], [place]. tel:[phone] Family History Family Member Type Diagnosis Age At Onset No Information Payers Payer name Insurance type Covered constitution party ID Authoriza tion(s) No Information Social [...]
--- OUTSIDE RECORDS SUMMARY | 2024-09-25 13:50 | XMS_ITS | Clinical Summary ---
Author Organization [facility] Address [address] [place] [address] Care Team Providers Care Teacher Of Family And Consumer Science Name Role Phone Earl Mo MD Unavailable [phone] Source Comments [facility],non-owned Affiliates and Associated Physician Practices is amultiple site organization consisting of ambulatory clinics and hospital sitesin [place], [place], [place] and [place]. This disclosure is being madepursuant to the Care Everywhere program and may not contain all information available regarding this patient. Last updated 18.[facility] Allergies Active Allergy Reactions Criticality Noted Date [...] MG tablet daily. Acti ve Cimetidine (ACID CHIEF ADMINISTRATIVE OFFICER PO) daily. Active Active Problems Problem Noted [...] to complete this topic MENINGOCOCCAL (Group B) VACC INE SHARED DECISION-MAKING Aged Out No longer eligibl e based on patient's age to complete this topic MENINGOCOCCAL GROUPS A/C/Y/W VACCINE Aged Out No longer eligible b ased on patient's age to complete this topic Care Teams Teacher Of Family And Consumer Science Relationship Specialty Start Date End Date Earl Mo MD Internal Medicine 11/29/10
== END 2024-09-25 13:43 | disposition home or self-care (01) ==
LOC: ANHIMG 13:43
PROVIDERS: PCP Internal Medicine; Visit Provider Internal Medicine
DX: Z12.31 Encounter for screening mammogram for malignant neoplasm of breast (principal); R92.8 Other abnormal and inconclusive findings on diagnostic imaging of breast
CPT/HCPCS: 77063; 77067